=== PATIENT | male | born 1945 | race Caucasian/White ===

== ENCOUNTER 2020-09-13 12:52 | Outpatient (REF) | payer MEDICARE, SELFPAY ==
--- NOTE | 2020-09-13 | PFT_ITS ---
Forced vital capacity, FEV1, [id number], and MVV are all normal. Post bronchodilator therapy, no bronchodilator challenge was done. Total lung capacity and residual volume normal. Diffusion capacity is slightly decreased. CONCLUSION: Normal spirometry, thus no evidence of any obstructive airway disorder. Normal lung volumes. Diffusion capacity is at the lower limit of normal. Bronchodilator challenge not performed. Clinical correlation recommended. MD MYLES Rogers/STAN / [id number]
== END 2020-09-13 12:53 | disposition home or self-care (01) ==
LOC: HO.RESP 12:52
PROVIDERS: PCP Internal Medicine; Visit Provider Hospitalist
DX: R06.00 Dyspnea, unspecified (principal)
CPT/HCPCS: 94060; 94727; 94729

== ENCOUNTER → 2020-10-04 09:19 | Outpatient (BNVA) | payer MEDICARE, SELFPAY | PROVIDERS: PCP Internal Medicine; Referring Provider Internal Medicine; Visit Provider Hospitalist | DX: R91.8 Other nonspecific abnormal finding of lung field (principal); R05 Cough; R06.00 Dyspnea, unspecified; J44.9 Chronic obstructive pulmonary disease, unspecified; Z79.899 Other long term (current) drug therapy | CPT/HCPCS: 99212 ==

== ENCOUNTER → 2021-03-28 09:00 | Outpatient (BNVA) | payer MEDICARE, SELFPAY | PROVIDERS: PCP Internal Medicine; Visit Provider Hospitalist | DX: J44.9 Chronic obstructive pulmonary disease, unspecified (principal); R91.8 Other nonspecific abnormal finding of lung field; R05 Cough | CPT/HCPCS: 99212 ==

== ENCOUNTER → 2022-03-22 08:50 | Outpatient (BNVA) | payer MEDICARE, SELFPAY | PROVIDERS: PCP Internal Medicine; Visit Provider Hospitalist | DX: R91.8 Other nonspecific abnormal finding of lung field (principal); J44.9 Chronic obstructive pulmonary disease, unspecified; R05.9 Cough, unspecified | CPT/HCPCS: 99212 ==

== ENCOUNTER 2023-04-04 09:12 | Outpatient (REF) | payer MEDICARE, SELFPAY ==
--- NOTE | 2023-04-04 09:00 | PFT_ITS ---
FLOWS: 1. FEV1 90% of predicted at 2.82 L. 2. FVC 87% of predicted at 3.79 L. 3. FEV1 to FVC ratio of 0.74. 4. No bronchodilator response. LUNG VOLUMES: 1. Total lung capacity 100% of predicted at 7.27 L. 2. Residual volume 127% of predicted at 3.36 L. 3. Slow vital capacity 84% of predicted at 3.91 L. 4. Expiratory reserve volume 29% of predicted at 0.37 L. DIFFUSION CAPACITY: Mildly decreased. Diffusion capacity corrects to normal after adjustment for alveolar ventilation. IMPRESSION: No obstructive or restrictive ventilatory defect. No bronchodilator response. Increased residual volume suggests air trapping. George Alvares MD AP/MODL / [id number]
== END 2023-04-04 09:13 | disposition home or self-care (01) ==
LOC: HO.RESP 09:12
PROVIDERS: Visit Provider Hospitalist
DX: R06.00 Dyspnea, unspecified (principal)
CPT/HCPCS: 94010; 94727; 94729

== ENCOUNTER → 2023-05-02 10:27 | Outpatient (BNVA) | payer MEDICARE, SELFPAY | PROVIDERS: PCP Internal Medicine; Visit Provider Hospitalist | DX: J44.9 Chronic obstructive pulmonary disease, unspecified (principal); R91.8 Other nonspecific abnormal finding of lung field; R05.9 Cough, unspecified | CPT/HCPCS: 99212 ==

== ENCOUNTER 2024-05-06 09:50 | Outpatient (AMB) | payer MEDICARE, SELFPAY ==
[2024-05-06 09:54] VITALS: BP 124/60; PULSE 59; O2SAT 96; BMI 24.5
--- NOTE | 2024-05-06 09:54 | A.OFFVIS_ITS ---
Vital Signs 05/06/24 09:54 Height 5 ft 11 in Weight 176 lb BMI 24.5 BP 124/60 Blood Pressure Location Lt brachial Position Sitting Pulse 59 Pulse Source Pulse Oximeter Pulse Oximetry (%) 96 Oxygen Delivery Method Room Air Intake Visit Reasons: pulmonary nodule Cut Off Saw Tender Metal Required: No Allergies No Known Allergies Allergy (Verified 05/06/24 09:56) HPI Comments Details: The patient is a 78 year old gentleman known asthma in addition to pulmonary nodules. He was initially and Advair, but, then due to insurance reasons he was social her to Breo. The Breo has been affecting beneficial though is very expensive for him. He has not had to use his rescue inhaler. He has not had any exacerbations of the breathing. Overall he is doing well exercising regularly. He does complains of some dyspnea on exertion at times. Mild in severity. Does get better with rest. He also has had CT scans assessing his pulmonary nodules. His last CT scan was done over April 2019 at [facility] demonstrating stable pulmonary nodules when compared to 2017. Based on the stable nodules he does not require any additional serial CAT scans at this time. We can consider CT scans as needed. Otherwise the patient is without any other complaints. 10/04/2020. The patient is here for pulmonary follow-up visit. Overall he is doing well. Back in April he did have an elevated PSA and did have a diagnosis of lung cancer made by biopsy. He did undergo a prostatectomy in [place]. He did not require radiation or chemotherapy or hormonal therapy. He has been recovering well. In the meantime he has known pulmonary nodules. He did have a recent CT scan of the chest that we personally reviewed from [facility]. Demonstrated the pulmonary nodules have been about the same. Although, he does have this scar like nodular density which is irregular in nature and that is located in the right lower lobe. This is suggestive of rounded atelectasis versus and nodular density. In view of his prostate cancer these nodules have to monitor closely. Therefore will continue with the yearly CAT scans at this time. If the patient develops any worsening symptoms or any concerning symptoms then an earlier evaluation will be warranted done. He continues using his respiratory medications. He is wondering about a cough that he is developing. It is usually productive in usually in the mornings worse. Moderate severity. He has been responding well to the Symbicort. We did talk about considering a long-acting muscarinic antagonist. The patient is reluctant to use it at this time. Will go ahead and treated for an upper airway cough syndrome. 03/22/2022 the patient is here for a pulmonary follow-up visit. Overall he is feeling well. He continues uses Symbicort 2 puffs twice a day. He does still get some shortness of breath. He does need a rescue inhaler specially well playing softball or any other activities where he could pretreated prior to the exercise. The patient does complain about the cause of the Symbicort. I will see the complain a more reasonable inhaler for him to use for maintenance therapy. The patient also had a recent CT scan of the chest that was personally by me and also his CT scan prior to that. He appears to have stable pulmonary nodules although he appears to have multiple nodules largest 1 in the left lower lobe which appears to be unchanged from previous and also has other micro nodules bilaterally. The micro nodules were not documented in his previous CT scan. Therefore, will go ahead and repeat his CT scan in a year's time. 05/02/2023 the patient is here for a pulmonary follow-up visit. Overall the patient has been doing well. Continues to exercise regularly. Continues uses respiratory therapy with good effect. I did review his CT scan of chest and does not appear to have any changes in the pulmonary nodules. There appeared to be stable and do not need serial CT scans. His pulmonary function studies are reassuring still with asthma. No evidence of any fixed obstruction. The only issue that he has been having is the cause of the inhalers. We switched him over to Advair HFA is still very expensive. Therefore I did provide him with good Rx card and a prescription for AirDuo which she can use and hopefully this way he can get it for cheaper rahman and not affect his donut hole. I am hopeful that this works for him. He also has a rescue inhaler that he has not required. Otherwise patient follow-up in a year if he has any issues he is to call the office for an earlier appointment. 05/06/2024 the patient is here for a pulmonary follow-up visit. Overall he is doing okay. Does complaint of increasing dyspnea on exertion. Feels like he gets more winded with typical activities he did in the past. He has been on Symbicort. Although has been very expensive. Prior to that he had been on Advair. Will go ahead and switch him to AirDuo with a GoodRx card. I did give him a card and he will take it to the [facility] pharmacy in order to get a reasonable rahman. Hopefully the AirDuo if he takes it twice a day will be more effective for it. During the visit we did go for brief walking oximetry the stairs the patient maintain a pulse ox of 96%. Heart rate did increase to about 105. He was winded about dyspnea score 5/10. It did improve after few minutes. He already had a cardiac evaluation and stress test per the patient and was okay per the patient. Therefore at this point I believe he is doing okay. His last CT scan was last year demonstrating stable pulmonary nodules for more than 2 years. He also had PFTs back about a year ago and does also reasonable without any evidence of any definitive obstructive nor restrictive ventilatory defects. He is going to start the AirDuo and continue to exercise. He is going to be watching closely for poor air quality. If his symptoms worsen then he can al ways call and we can repeat an x-ray and PFTs to assess any further progression of his airway disease. [facility] Medical History (Updated 05/06/24 @ 09:55 by Brenton Barrios MD) Asthma-COPD overlap syndrome Pulmonary nodules Cough Dyspnea Social History (Updated 03/22/22 @ 09:02 by SAGAR Valverde) Patient Tobacco Use Status: Never used Tobacco Review of Systems Const Denies night sweats ENT Denies change in voice, Denies lip swelling, Denies mouth pain, Reports nasal congestion, Reports nasal discharge and Denies tongue swelling Card Denies chest pain and Reports dyspnea on exertion Resp Reports cough and Reports dyspnea on exertion GI Denies abdominal pain Musc Denies no additional complaints Neuro Denies Neuro-related abnormal movements Psych Denies no additional complaints Porfirio/Lymph Denies easy bleeding and Denies lymphadenopathy Aller/Immun Denies lip swelling and Denies tongue swelling Physical Exam Vital Signs: Last Vital Signs Pulse 59 05/06/24 09:54 BP 124/60 05/06/24 09:54 Pulse Ox 96 05/06/24 09:54 Oxygen Delivery Method Room Air 05/06/24 09:54 BMI result Body Mass Index 24.5 Const General: alert Neck Neck: Yes normal visual inspection, Yes full ROM and Yes no lymphadenopathy Chest Chest palpation & inspection: normal inspection of the chest Resp Auscultation: diminished lung sounds Cardio Rate: regular rate Rhythm: regular rhythm Heart sounds: S1 normal heart sound present and S2 normal heart sound present GI Palpation (GI): Soft to palpation and nontender Auscultation: normal bowel sounds Skin General skin exam: rashes and/or lesions noted Assessment & Plan Assessment & Plan (1) Asthma-COPD overlap syndrome: Code(s): J44.9 - Chronic obstructive pulmonary disease, unspecified Category: Medical (2) Pulmonary nodules: Code(s): R91.8 - Other nonspecific abnormal finding of lung field Category: Medical (3) Cough: Code(s): R05 - Cough Category: Medical Qualifiers: Cough type: chronic Qualified Code(s): R05.3 - Chronic cough Plan stop Advair Start Airduo Continue allergy therapy Singulair and as needed Zyrtec Continue fluticasone nasal spray Based on his last CT scan no additional serial CTs needed consider PFTs and CXR if continues to be symptomatic Follow-up in 6 months Medications: New fluticasone propion-salmeterol 113-14 mcg/actuation (AirDuo RespiClick) 1 inh inhalation Q12H 1 ea 11RF 30 days Coding Level of Care Code Est Pt Level 4 (43221) Diagnoses Asthma-COPD overlap syndrome J44.9 Pulmonary nodules R91.8 Chronic cough R05.3 Cough type: chronic Time Spent (min) 17
== END 2024-05-06 10:19 | disposition home or self-care (01) ==
PROVIDERS: PCP Internal Medicine; Visit Provider Hospitalist
DX: J44.9 Chronic obstructive pulmonary disease, unspecified (principal); R91.8 Other nonspecific abnormal finding of lung field; R05.3 Chronic cough
CPT/HCPCS: 99214

== ENCOUNTER → 2024-05-06 09:50 | Outpatient (BNVA) | payer MEDICARE, SELFPAY | PROVIDERS: PCP Internal Medicine; Visit Provider Hospitalist | DX: J44.9 Chronic obstructive pulmonary disease, unspecified (principal); R91.8 Other nonspecific abnormal finding of lung field; R05.3 Chronic cough | CPT/HCPCS: 99212 ==

== ENCOUNTER 2024-12-02 08:54 | Outpatient (AMB) | payer MEDICARE, SELFPAY ==
[2024-12-02 08:58] VITALS: BP 134/66; PULSE 63; O2SAT 96; BMI 26.9
--- NOTE | 2024-12-02 08:58 | A.OFFVIS_ITS ---
Vital Signs 12/02/24 08:58 Height 5 ft 11 in Weight 192 lb 14.472 oz BMI 26.9 BP 134/66 Blood Pressure Location Rt brachial Position Sitting Pulse 63 Pulse Source Pulse Oximeter Pulse Oximetry (%) 96 Oxygen Delivery Method Room Air Intake Visit Reasons: Pulmonary Nodule Allergies No Known Allergies Allergy (Verified 12/02/24 09:01) HPI Comments Details: The patient is a 79 year old gentleman known asthma in addition to pulmonary nodules. He was initially and Advair, but, then due to insurance reasons he was social her to Breo. The Breo has been affecting beneficial though is very expensive for him. He has not had to use his rescue inhaler. He has not had any exacerbations of the breathing. Overall he is doing well exercising regularly. He does complains of some dyspnea on exertion at times. Mild in severity. Does get better with rest. He also has had CT scans assessing his pulmonary nodules. His last CT scan was done over April 2019 at [facility] demonstrating stable pulmonary nodules when compared to 2017. Based on the stable nodules he does not require any additional serial CAT scans at this time. We can consider CT scans as needed. Otherwise the patient is without any other complaints. 10/04/2020. The patient is here for pulmonary follow-up visit. Overall he is doing well. Back in April he did have an elevated PSA and did have a diagnosis of lung cancer made by biopsy. He did undergo a prostatectomy in [place]. He did not require radiation or chemotherapy or hormonal therapy. He has been recovering well. In the meantime he has known pulmonary nodules. He did have a recent CT scan of the chest that we personally reviewed from [facility]. Demonstrated the pulmonary nodules have been about the same. Although, he does have this scar like nodular density which is irregular in nature and that is located in the right lower lobe. This is suggestive of rounded atele ctasis versus and nodular density. In view of his prostate cancer these nodules have to monitor closely. Therefore will continue with the yearly CAT scans at this time. If the patient develops any worsening symptoms or any concerning symptoms then an earlier evaluation will be warranted done. He continues using his respiratory medications. He is wondering about a cough that he is developing. It is usually productive in usually in the mornings worse. Moderate severity. He has been responding well to the Symbicort. We did talk about considering a long-acting muscarinic antagonist. The patient is reluctant to use it at this time. Will go ahead and treated for an upper airway cough syndrome. 03/22/2022 the patient is here for a pulmonary follow-up visit. Overall he is feeling well. He continues uses Symbicort 2 puffs twice a day. He does still get some shortness of breath. He does need a rescue inhaler specially well playing softball or any other activities where he could pretreated prior to the exercise. The patient does complain about the cause of the Symbicort. I will see the complain a more reasonable inhaler for him to use for maintenance therapy. The patient also had a recent CT scan of the chest that was personally by me and also his CT scan prior to that. He appears to have stable pulmonary nodules although he appears to have multiple nodules largest 1 in the left lower lobe which appears to be unchanged from previous and also has other micro nodules bilaterally. The micro nodules were not documented in his previous CT scan. Therefore, will go ahead and repeat his CT scan in a year's time. 05/02/2023 the patient is here for a pulmonary follow-up visit. Overall the patient has been doing well. Continues to exercise regularly. Continues uses respiratory therapy with good effect. I did review his CT scan of chest and does not appear to have any changes in the pulmonary nodules. There appeared to be stable and do not need serial CT scans. His pulmonary function studies are reassuring still with asthma. No evidence of any fixed obstruction. The only issue that he has been having is the cause of the inhalers. We switched him over to Advair HFA is still very expensive. Therefore I did provide him with good Rx card and a prescription for AirDuo which she can use and hopefully this way he can get it for cheaper rahman and not affect his donut hole. I am hopeful that this works for him. He also has a rescue inhaler that he has not required. Otherwise patient follow-up in a year if he has any issues he is to call the office for an earlier appointment. 05/06/2024 the patient is here for a pulmonary follow-up visit. Overall he is doing okay. Does complaint of increasing dyspnea on exertion. Feels like he gets more winded with typical activities he did in the past. He has been on Symbicort. Although has been very expensive. Prior to that he had been on Advair. Will go ahead and switch him to AirDuo with a GoodRx card. I did give him a card and he will take it to the [facility] pharmacy in order to get a reasonable rahman. Hopefully the AirDuo if he takes it twice a day will be more effective for it. During the visit we did go for brief walking oximetry the stairs the patient maintain a pulse ox of 96%. Heart rate did increase to about 105. He was winded about dyspnea score 5/10. It did improve after few minutes. He already had a cardiac evaluation and stress test per the patient and was okay per the patient. Therefore at this point I believe he is doing okay. His last CT scan was last year demonstrating stable pulmonary nodules for more than 2 years. He also had PFTs back about a year ago and does also reasonable without any evidence of any definitive obstructive nor restrictive ventilatory defects. He is going to start the AirDuo and continue to exercise. He is going to be watching closely for poor air quality. If his symptoms worsen then he can always call and we can repeat an x-ray and PFTs to assess any further progression of his airway disease. 12/02/2024 the patient is here for pulmonary follow-up visit. He has been sick now for couple weeks. Congestion cough and chest tightness. Was evaluated doxycycline and also prednisone started on 60 mg she has been using his rescue inhaler regularly in addition to maintenance inhaler. After completing the oxygen the prednisone has not seen any significant improvement. On exam he does not have any significant wheezing but he still has productive cough congested. Will go ahead and start him on Augmentin. We can also consider levofloxacin. The patient if no better after starting the Augmentin for chest x-ray. He will continue with his current respiratory therapy at this time. He has been taking Delsym. Will switch that over to Mucinex DM or the generic. Patient will return the springtime, but he can always push the appointment to the fall if he is doing okay. [facility] Medical History (Updated 12/02/24 @ 21:20 by Brenton Barrios MD) Asthma-COPD overlap syndrome Pulmonary nodules Cough Dyspnea Social History Patient Tobacco Use Status: Never used Tobacco Review of Systems Const Denies night sweats ENT Denies change in voice, Denies lip swelling, Denies mouth pain, Reports nasal congestion, Reports nasal discharge and Denies tongue swelling Card Denies chest pain and Reports dyspnea on exertion Resp Reports cough and Reports dyspnea on exertion GI Denies abdominal pain Musc Denies no additional complaints Neuro Denies Neuro-related abnormal movements Psych Denies no additional complaints Porfirio/Lymph Denies easy bleeding and Denies lymphadenopathy Aller/Immun Denies lip swelling and Denies tongue swelling Physical Exam Vital Signs: Last Vital Signs Pulse 63 12/02/24 08:58 BP 134/66 12/02/24 08:58 Pulse Ox 96 12/02/24 08:58 Oxygen Delivery Method Room Air 12/02/24 08:58 BMI result Body Mass Index 26.9 Const General: alert Neck Neck: Yes normal visual inspection, Yes full ROM and Yes no lymphadenopathy Chest Chest palpation & inspection: normal inspection of the chest Resp Auscultation: diminished lung sounds Cardio Rate: regular rate Rhythm: regular rhythm Heart sounds: S1 normal heart sound present and S2 normal heart sound present GI Palpation (GI): Soft to palpation and nontender Auscultation: normal bowel sounds Skin General skin exam: rashes and/or lesions noted Assessment & Plan Assessment & Plan (1) Asthma-COPD overlap syndrome: Code(s): J44.9 - Chronic obstructive pulmonary disease, unspecified Category: Medical (2) Pulmonary nodules: Code(s): R91.8 - Other nonspecific abnormal finding of lung field Category: Medical (3) Cough: Code(s): R05 - Cough Category: Medical Qualifiers: Cough type: chronic Qualified Code(s): R05.3 - Chronic cough (4) Bronchitis: Code(s): J40 - Bronchitis, not specified as acute or chronic Category: Medical Plan start Augmentin CXR continue Airduo Continue allergy therapy Singulair and as needed Zyrtec Continue fluticasone nasal spray Based on his last CT scan no additional serial CTs needed consider PFTs if continues to be symptomatic Follow-up in 4-6 months Orders: Orders XR chest 2V Today J44.9 - Chronic obstructive pulmonary disease, unspecified Medications: New amoxicillin-pot clavulanate 875-125 mg 1 tab PO BID 20 tabs 0RF 10 days Coding Level of Care Code Est Pt Level 4 (27557) Diagnoses Asthma-COPD overlap syndrome J44.9 Pulmonary nodules R91.8 Chronic cough R05.3 Cough type: chronic Bronchitis J40 Time Spent (min) 16
--- OUTSIDE RECORDS SUMMARY | 2024-12-02 09:22 | XMS_ITS | Continuity of Care Document ---
Author Organization [facility] [address] [place] [address] Care Team Providers Care Heel Layer Name Role Phone RENAN FLOREZ Referring Provider [phone] RENAN FLOREZ Primary Care Provider Assessment Encounter Date Assessment Date Assessment LastModified by Organization Details LastModified Time 09/09/2024 09/09/2024 A: Pt denied pain with therex performed. Pt has no hip or knee pain coming in today and will try golfing. P: Continue per plan of care. Progress strengthening as appropriate. [email or web address] Not available 09/09/2024 12:40:48 Plan of Treatment Reminders Order Date Submit Date Provider Last Modified By Organization Details Last Modified Time Details Appointments None record ed. Lab None record ed. Referral None record ed. Procedures None record ed. Surgeries None record ed. Imaging None record ed. Medication Orders None record ed. Patient TargetsNo targets recorded. Patient InstructionsNo instructions recorded. Reason for Referral None Reported. Results Created Date Observation Date Name Description Value Unit Range Abnormal Flag Note LastModifiedBy Organization Detail LastModifiedTime 08/20/2008/20/2024 XR, knee, 4 or more view http:/ [email or web address] ?Encry pted=s hAaTro YD8dLq bEUv6g %2BXZw aYqtaq 0bqfl% 2Fg9IQ a4ajBk vP9nXo QUaueC m3YtLR FvZlgJ JJ8mAn HZtai3 9r9975 AC0Kqa 3yDVaq vKiQtr MwF INTERFACE [facility] [address], [place], [address], 08/20/2024 13:55:42 08/20/20 24 08/20/2024 XR, knee, 4 or more view http:/ [email or web address] ?Encry pted=s hAaTro YD8dLq bEUv6g %2BXZw aYqtaq 0bqfl% 2Fg9IQ a4ajBk vP9nXo QUaueC m3YtLR FvZlgJ JJ8mAn HZtai3 0g0819 AC0Kqa 3yDVaq vKiQtr MwF INTERFACE [facility] [address], [place], [address], 08/20/2024 13:55:44 Result Notes None recorded. Problems Name Problem SNOMED Code Status Onset Date Resolution Date Notes Provider Name and Address Organization Details Recorded Time No complaints [id number] Active Status : 'I'; Not Available [facility] 4 09:25:30 Trigger finger of left hand [id number] 9107 Active 2023 Rosendo Augustin PA-C [address], [place], [address] , [facility] 4 08:25:40 Problem Notes None recorded. Procedures Surgical History Date Name Laterality Status Provider Name and Address Organization Details Recorded Time 4 78764 Therapeutic Exercise (1:1) completed Tiffanie Hernandez DPT [address] [facility], [place], [address], [facility] 09/12/2024 14:02:35 4 94607 Therapeutic Exercise (1:1) completed Nilda Story PTA [address], [place], [address], [facility] 09/08/2024 18:51:43 4 92950 Therapeutic Exercise (1:1) completed Tiffanie Hernandez DPT [address] [facility], [place], [address], [facility] 09/05/2024 15:59:02 4 71912 Therapeutic Exercise (1:1) completed Nilda Story, CERTIFIED NURSING ASSISTANT INSTRUCTOR [address] [facility], [place], [address], [facility] 09/03/2024 15:33:11 4 25607: Manual therapy completed Nilda Story CERTIFIED NURSING ASSISTANT INSTRUCTOR [address], [place], [address], [facility] 09/03/2024 15:25:26 4 92475 Therapeutic Exercise (1:1) completed Nilda Story, CERTIFIED NURSING ASSISTANT INSTRUCTOR [address], [place], [address], [facility] 08/27/2024 14:45:20 53668: Manual therapy completed Nilda Story CERTIFIED NURSING ASSISTANT INSTRUCTOR [address], [place], [address], [facility] 08/27/2024 14:45:20 4 01646 Therapeutic Exercise (1:1) completed Nilda Story, CERTIFIED NURSING ASSISTANT INSTRUCTOR [address], [place], [address], [facility] 08/21/2024 15:56:42 4 26489: Manual therapy completed Nilda Story CERTIFIED NURSING ASSISTANT INSTRUCTOR [address], [place], [address], [facility] 08/21/2024 15:56:42 Hip Kenalog 1cc Injection, L/R completed Akil Dunham PA-C [address] [facility], [place], [address], [facility] 08/20/2024 15:37:03 4 74143 Therapeutic Exercise (1:1) completed Nilda Story CERTIFIED NURSING ASSISTANT INSTRUCTOR [address], [place], [address], [facility] 08/18/2024 16:47:57 4 35520: Manual therapy completed Nilda Story, CERTIFIED NURSING ASSISTANT INSTRUCTOR [address], [place], [address], [facility] 08/18/2024 16:47:57 4 61502 Therapeutic Exercise (1:1) completed Nilda Story, CERTIFIED NURSING ASSISTANT INSTRUCTOR [address], [place], [address], [facility] 08/15/2024 15:59:22 4 44568: Manual therapy completed Nilda Story, CERTIFIED NURSING ASSISTANT INSTRUCTOR [address], [place], [address], [facility] 08/15/2024 15:59:27 4 73365 Therapeutic Exercise (1:1) completed Nilda Story, CERTIFIED NURSING ASSISTANT INSTRUCTOR [address], [place], [address], [facility] 08/12/2024 16:04:30 4 34872: Manual therapy completed Nilda Story, CERTIFIED NURSING ASSISTANT INSTRUCTOR [address], [place], [address], [facility] 08/12/2024 16:04:35 4 45053 Therapeutic Exercise (1:1) completed Nilda Story, CERTIFIED NURSING ASSISTANT INSTRUCTOR [address], [place], [address], [facility] 08/07/2024 12:22:14 4 93235: Manual therapy completed Nilda Story, CERTIFIED NURSING ASSISTANT INSTRUCTOR [address], [place], [address], [facility] 08/07/2024 12:22:14 4 11585 Therapeutic Exercise (1:1) completed Nilda Story, CERTIFIED NURSING ASSISTANT INSTRUCTOR [address], [place], [address], [facility] 08/05/2024 16:43:31 4 12601: Manual therapy completed Nilda Story CERTIFIED NURSING ASSISTANT INSTRUCTOR [address] [facility], [place], [address], [facility] 08/05/2024 16:43:21 4 69383 Therapeutic Exercise (1:1) completed Tiffanie Hernandez DPT [address] [facility], [place], [address], [facility] 07/31/2024 16:54:17 4 34156: Low complexity PT Eval completed Tiffanie Hernandez DPT [address] [facility], [place], [address], [facility] 07/31/2024 16:56:02 4 G8419 BMI Outside Normal Parameters, F/U not Documented completed Tiffanie Hernandez DPT [address] [facility], [place], [address], [facility] 07/31/2024 16:22:55 4 G8427 Current Medication Documented completed Tiffanie Hernandez DPT [address] [facility], [place], [address], [facility] 07/31/2024 16:22:59 4 Trigger Finger Kenalog Injection completed Maxim Michael PA-C [address] [facility], [place], [address], [facility] 06/24/2024 13:40:50 4 JZTrigger Finger Injection completed Rosendo Augustin PA-C [address], [place], [address], [facility] 02/15/2024 08:26:00 Imaging Results None recorded. Procedure Notes None recorded. Medical Equipment None Reported. Allergies Allergen ID Allergen Name Allergen Category Reaction Reaction Severity Criticality Documentation Date Start Date Code Code System Note Provider Name and Address Organization Details Recorded Time 06471 mold extract environme nt Not available Not available Not available 01/21/20242015 02196 8 RxNorm Not Available [facility] 12:32:15 Medications Name Sig Start Date Stop Date Status Note LastModified by Organization Details LastModified Time amoxicillin 500 mg capsule TAKE 4 CAPSULES AN HOUR PRIOR TO DENTAL APPOINTME NT AND THEN 1 CAPSULE 3 TIMES A DAY FOR 1 WEEK. 08/20 completed Not Available Not Available Not Available nystatin 100,000 unit/mL oral suspension SWISH AND SWALLOW 5ML BY MOUTH FOR 1 MINUTES FOUR TIMES DAILY FOR AT LEAST 48 HOURS AFTER PERIORAL SYMPTOMS RESOLVE 08/20 completed Not Available Not Available Not Available prednisone 10 mg tablet TAKE 2 TABLETS BY MOUTH DAILY FOR 5 DAYS active Not Available Not Available No t Available doxycycline hyclate 100 mg capsule TAKE 1 CAPSULE BY MOUTH TWICE A DAY FOR 7 DAYS 08/20 completed Not Available Not Available Not Available atorvastati n 20 mg tablet TAKE 1 TABLET BY MOUTH EVERY DAY active Not Available Not Available No t Available amlodipine 2.5 mg tablet TAKE 1 TABLET BY MOUTH EVERY DAY active Not Available Not Available No t Available prednisone 10 mg tablets in a dose pack as directed 6 FMf0guun, 5 IEf8tuzr, 4 PO x2days, 3 AXx3teks, 2 KDd7btbv, 1 AHw8lstt 2024 active Not Available Not Available Not Avai lable prednisolon e acetate 1 % eye drops,suspe nsion INSTILL 1 DROP INTO LEFT EYE 4 TIMES A DAY FOR 1 WEEK 08/20 completed Not Available Not Available Not Available tamsulosin 0.4 mg capsule TAKE 1 CAPSULE BY MOUTH EVERY 12 HOURS active Not Available Not Available No t Available doxycycline monohydrate 100 mg capsule active Not Available Not Available Not Available polymyxin B sulfate 10,000 unit-trimet hoprim 1 mg/mL eye drops INSTILL 1 DROP INTO RIGHT EYE EVERY 3 HOURS FOR 7 DAYS WHILE AWAKE DO NOT EXCEED 6 DOSES IN 24 HOURS 08/20 completed Not Available Not Available Not Available montelukast 10 mg tablet TAKE 1 TABLET BY MOUTH EVERY DAY active Not Available Not Available No t Available ibuprofen 600 mg tablet TAKE 1 TABLET ONE HOUR PRIOR TO DENTAL APPOINTME NT AND ONE TABLET EVERY 6 HOURS FOR PAIN. active Not Available Not Available No t Available methylpredn isolone 4 mg tablets in a dose pack TAKE 6 TABLETS ON DAY 1 DIRECTED ON PACKAGE AND DECREASE BY 1 TAB EACH DAY FOR A TOTAL OF 6 DAYS active Not Available Not Available No t Available albuterol sulfate HFA 90 mcg/actuati on aerosol inhaler TAKE 2 PUFFS INHALATIO N EVERY 4-6 HOURS NEEDED 08/20 completed Not Available Not Available Not Available doxycycline hyclate 100 mg tablet TAKE 1 TABLET BY MOUTH TWICE A DAY FOR 10 DAYS 08/20 completed Not Available Not Available Not Available finasteride 5 mg tablet TAKE 1 TABLET BY MOUTH EVERY DAY active Not Available Not Available No t Available amoxicillin 875 mg-potassiu m clavulanate 125 mg tablet TAKE 1 TABLET BY MOUTH TWICE A DAY FOR 7 DAYS 08/20 completed Not Available Not Available Not Available Laxative (bisacodyl) 5 mg tablet,sana yed release 4 TABLETS ORALLY DIRECTED X1 DAY 08/20 completed Not Available Not Available Not Available Gas Relief Extra Strength 125 mg chewable tablet 3 CHEWABLE TABLETS ORALLY DIRECTED 1 DAY 08/20 completed Not Available Not Available Not Available chlorhexidi ne gluconate 0.12 % mouthwash RINSE MOUTH WITH 15ML (1 CAPFUL) FOR 30 SECONDS IN MORNING AND EVENING AFTER BRUSHING, THEN SPIT 08/20 completed Not Available Not Available Not Available Advair HFA 230 mcg-21 mcg/actuati on aerosol inhaler INHALE 2 PUFFS EVERY 12 HOURS 08/20 completed Not Available Not Available Not Available budesonide- formoterol HFA 160 mcg-4.5 mcg/actuati on aerosol inhaler INHALE 2 PUFFS BY MOUTH TWICE A DAY FOR 30 DAYS 08/20 completed Not Available Not Available Not Available GaviLyte-G 236 gram-22.74 gram-6.74 gram-5.86 gram oral solution TAKE DIRECTED 08/20 completed Not Available Not Available Not Available fluticasone 113 mcg-salmete rol 14 mcg/actuati on breath activated powdr INHALE 1 PUFF BY MOUTH EVERY 12 HOURS active Not Available Not Available No t Available fluticasone 232 mcg-salmete rol 14 mcg/actuati on breath activated powdr INHALE 1 PUFF EVERY 12 HOURS FOR 30 DAYS 08/20 completed Not Available Not Available Not Available Vitals None Recorded Social History None recorded. Functional Status None recorded. Mental Status None recorded. Family History Nothing Reported. Medical History No medical history recorded. 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 [id number] 28379 M76.32 [id number] [facility] [address] [place] [address] 08/19/2024 13:49:54 08/19/2024 16:51:33 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 [id number] 51236 M76.32 [id number] [facility] [address] [place] [address] 08/20/2024 13:32:05 08/20/2024 15:39:14 Pain of left knee joint 8258773703 66626 M25.562 Tro[facility] bursitis of left hip 4552243897 83167 M70.62 [id number] [facility] [address] [place] [address] 08/25/2024 15:51:23 08/25/2024 18:36:45 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 9612657309 01586 M76.32 [id number] [facility] [address] [place] [address] 08/28/2024 13:54:30 08/28/2024 15:10:23 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 9282223746 09075 M76.32 [id number] [facility] [address] [place] [address] 09/03/2024 12:31:08 09/03/2024 15:34:21 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 [id number] 16295 M76.32 [id number] Tiffanie Hernandez, DPT [facility] [address] [place] [address] 09/05/2024 13:54:20 09/08/2024 08:39:58 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 5762935186 38878 M76.32 [id number] Dallin Vogt, PT [facility] [address] [place] [address] 09/09/2024 10:17:54 09/09/2024 15:22:31 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 [id number] 48484 M76.32 Health Concerns Section Related Observation LastModified by Organization Detai ls LastModified Time None Recorded Concern Status LastModified by Organization Details LastModified Time None Recorded Payers Encounter Date Sequence Insurance Name Policy Number Policy Montes Covered Member ID Montes Member ID Guarantor Name 09/09/2024 2 [place] [id number] Manuel So [id number] Manuel So 09/09/2024 1 [place] [employer] Manuel So [id number] Manuel So Notes Date Note Type Note Provider Name and Address Organization Details Recorded Time 09/09/2024 text/html Pt reports 0/10 hip pain coming in, I feel good. I'm going golfing this afternoon and we'll see how I do. Nilda Story, CERTIFIED NURSING ASSISTANT INSTRUCTOR [address], [place], [address], [facility] 09/09/2024 12:41:15
--- OUTSIDE RECORDS SUMMARY | 2024-12-02 09:22 | XMS_ITS | Continuity of Care Document ---
Author Organization [facility] Address [address] [place] [address] Care Team Providers Care Care Professionals Name Role Phone RENAN FLOREZ Referring Provider [phone] RENAN FLOREZ Primary Care Provider Assessment Encounter Date Assessment Date Assessment LastModified by Organization Details LastModified Time 09/03/2024 09/03/2024 A: Pt denied pain with therex performed. Pt presents with normal gait mechanics on level ground and on stairs without pain. Pt presents with increased flexibility in hip rotators and is able to cross his legs to put his L shoe on. P: Continue per plan of care. Progress strengthening as appropriate. [email or web address] Not available 09/03/2024 15:33:55 Plan of Treatment Reminders Order Date Submit [...] Abnormal Flag Note LastModifiedBy Organization Detail LastModifiedTime 08/20/20 24 08/20/2024 XR, knee, 4 or more view http:/ [email or web address] ?Encry pted=s hAaTro YD8dLq bEUv6g %2BXZw aYqtaq 0bqfl% 2Fg9IQ a4ajBk vP9nXo QUaueC m3YtLR FvZlgJ JJ8mAn HZtai3 0u2823 AC0Kqa 3yDVaq vKiQtr MwF INTERFACE [facility] [address], [place], [address], 08/20/2024 13:55:42 08/20/20 24 08/20/2024 XR, knee, 4 or more view http:/ [email or web address] ?Encry pted=s hAaTro YD8dLq bEUv6g %2BXZw aYqtaq 0bqfl% 2Fg9IQ a4ajBk vP9nXo QUaueC m3YtLR FvZlgJ JJ8mAn HZtai3 6v0101 AC0Kqa 3yDVaq vKiQtr MwF INTERFACE [facility] [address], [place], [address], 08/20/2024 13:55:44 Result Notes None recorded. Problems Name Problem SNOMED Code Status Onset Date Resolution Date Notes Provider Name and Address Organization Details Recorded Time No complaints 849590748 Active Status : 'I'; Not Available [facility] 09:25:30 Trigger finger of left hand [id number] 9107 Active 2023 Rosendo Augustin PA-C [address], [place], [address] , [facility] 4 08:25:40 Problem Notes None recorded. Procedures Surgical History Date Name Laterality Status Provider Name and Address Organization Details Recorded Time 4 47813 Therapeutic Exercise (1:1) completed Tiffanie Hernandez DPT [address], [place], [address], [facility] 09/12/2024 14:02:35 4 12765 Therapeutic Exercise (1:1) completed Nilda Story PTA [address], [place], [address], [facility] 09/08/2024 18:51:43 4 70736 Therapeutic Exercise (1:1) completed Tiffanie Hernandez DPT [address], [place], [address], [facility] [place] [facility] 09/05/2024 15:59:02 22174 Therapeutic Exercise (1:1) completed Nilda Story, [employer] [address], [place], [address], [facility] [place] [facility] 09/03/2024 15:33:11 4 87341: Manual therapy completed Nilda Story, [employer] [address], [place], [address], [facility] 09/03/2024 15:25:26 76403 Therapeutic Exercise (1:1) completed Nilda Story, [employer] [address], [place], [address], [facility] 08/27/2024 14:45:20 4 46065: Manual therapy completed Nilda Story, [employer] [address], [place], [address], [facility] [place] [facility] 08/27/2024 14:45:20 26995 Therapeutic Exercise (1:1) completed Nilda Story, [employer] [address], [place], [address], [facility] 08/21/2024 15:56:42 78633: Manual therapy completed Nilda Story, [employer] [address], [place], [address], [facility] 08/21/2024 15:56:42 Hip Kenalog 1cc Injection, L/R completed kAil Dunham PA-C [address], [place], [address], [facility] 08/20/2024 15:37:03 42330 Therapeutic Exercise (1:1) completed Nilda Story, [employer] [address], [place], [address], [facility] 08/18/2024 16:47:57 4 12973: Manual therapy completed Nilda Story, [employer] [address], [place], [address], [facility] 08/18/2024 16:47:57 4 51451 Therapeutic Exercise (1:1) completed Nilda Story, [employer] [address], [place], [address], [facility] 08/15/2024 15:59:22 4 39624: Manual therapy completed Nilda Story, [employer]ER [address], [place], [address], [facility] 08/15/2024 15:59:27 4 26511 Therapeutic Exercise (1:1) completed Nilda Story, [employer]ER [address], [place], [address], [facility] 08/12/2024 16:04:30 4 76979: Manual therapy completed Nilda Story, [employer]ER [address], [place], [address], [facility] 08/12/2024 16:04:35 4 32109 Therapeutic Exercise (1:1) completed Nilda Story, [employer]ER [address], [place], [address], [facility] 08/07/2024 12:22:14 4 28492: Manual therapy completed Nilda Story, [employer]ER [address], [place], [address], [facility] 08/07/2024 12:22:14 4 14791 Therapeutic Exercise (1:1) completed Nilda Story, [employer]ER [address], [place], [address], [facility] 08/05/2024 16:43:31 4 87322: Manual therapy completed Nilda Story [employer] [address] [facility], [place], [address], [facility] 08/05/2024 16:43:21 4 85942 Therapeutic Exercise (1:1) completed Tiffanie Hernandez DPT [address] [facility], [place], [address], [facility] 07/31/2024 16:54:17 4 76649: Low complexity PT Eval completed Tiffanie Hernandez DPT [address] [facility], [place], [address], [facility] 07/31/2024 16:56:02 4 G8419 BMI Outside Normal Parameters, F/U not Documented completed Tiffanie Hernandez DPT [address] [facility], [place], [address], [facility] 07/31/2024 16:22:55 4 G8427 Current Medication Documented completed Tiffanei Hernandez DPT [address] [facility], [place], [address], [facility] 07/31/2024 16:22:59 4 Trigger Finger Kenalog Injection completed Maxim Michael PA-C [address] [facility], [place], [address], [facility] 06/24/2024 13:40:50 4 JZTrigger Finger Injection completed Rosendo Augustin PA-C [address] [facility], [place], [address], [facility] 02/15/2024 08:26:00 Imaging Results None recorded. Procedure Notes None recorded. Medical Equipment None Reported. Allergies Allergen ID Allergen Name Allergen Category Reaction Reaction Severity Criticality Documentation Date Start Date Code Code System Note Provider Name and Address Organization Details Recorded Time 45845 mold extract environme nt Not available Not available Not available 01/21/20242015 33886 8 RxNorm Not Available [facility] 12:32:15 Medications Name Sig Start Date Stop [...] in a dose pack as directed 6 NUg8hpqc, 5 FGg9siof, 4 PO x2days, 3 HYo7xtbm, 2 IEh2yjbu, 1 ABo4fpgc 2024 active Not Available Not Available Not [...] SNOMED-CT Code Diagnosis ICD10 Code Diagnosis Note [id number] [facility] [address] [place] [address] 08/05/2024 15:27:14 08/05/2024 17:01:54 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 4523192375 12176 M76.32 [id number] [facility] [address] [place] [address] 08/08/2024 13:52:36 08/08/2024 15:59:21 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 1162770824 42513 M76.32 1723549 [facility] [address] [place] [address] 08/12/2024 13:56:41 2024 08:59:38 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 7471367399 90032 M76.32 [id number] [facility] [address] [place] [address] 08/15/2024 13:52:14 08/15/2024 16:01:37 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 4237387148 82495 M76.32 [id number] [facility] [address] [place] [address] 08/19/2024 13:49:54 08/19/2024 16:51:33 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 9796457476 78774 M76.32 [id number] [facility] [address] [place] [address] 08/20/2024 13:32:05 08/20/2024 15:39:14 Pain of left knee joint 9965691830 59623 M25.562 Trochanter ic bursitis of left hip 3395078784 83117 M70.62 [id number] [facility] [address] [place] [address] 08/25/2024 15:51:23 08/25/2024 18:36:45 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 5271079366 10505 M76.32 [id number] Tiffanie Hernandez DPT [facility] [address] [place] [address] 08/28/2024 13:54:30 08/28/2024 15:10:23 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 1034721317 84270 M76.32 8204401 [facility] [address] [place] [address] 09/03/2024 12:31:08 09/03/2024 15:34:21 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 5914184847 68841 M76.32 Health Concerns Section Related Observation LastModified by Organization Detai ls LastModified Time None Recorded Concern Status LastModified by Organization Details LastModified Time None Recorded Payers Encounter Date Sequence Insurance Name Policy Number Policy Montes Covered Member ID Montes Member ID Guarantor Name 09/03/2024 2 [place] [id number] Manuel So [id number] Manuel So 09/03/2024 1 [place] [employer] Manuel So [id number] Manuel So Notes Date Note Type Note Provider Name and Address Organization Details Recorded Time 09/03/2024 text/html Pt reports 0/10 hip pain coming in. When I do my exercises at home I get some soreness in the side of my hip. Maybe I'm doing something wrong? Pt bought a stretch out strap for home. Nilda Story, [employer] OFF[employer]ER [address], [place], [address], [facility] [place] [facility] 09/03/2024 15:34:14
--- OUTSIDE RECORDS SUMMARY | 2024-12-02 09:22 | XMS_ITS | Continuity of Care Document ---
Author Organization [place] - [facility], [facility] [place] Address [address] [place] [address] Care Team Providers Care Prop Making Supervisor Name Role Phone RENAN FLOREZ Referring Provider [phone] RENAN FLOREZ Primary Care Provider Assessment Encounter Date Assessment Date Assessment LastModified by Organization Details LastModified Time 11/20/2024 11/20/2024 Patient seen under general supervision of Dr. Hernandez who was available but who did not see the patient. HPI: 79-year-old male seen today regarding right hand numbness. Patient reports pain especially difficulty more than a month ago. States he had fallen when getting out of a van and landed on his right upper extremity. Patient denies any significant pain at that time. In the day or 2 thereafter began to notice a numbness about the hand which occurs especially at night. Patient states that this involves the entire hand and oftentimes can begin to a sent to the wrist and midforearm. Patient denies history of difficulty with right upper extremity prior to this incident. Denies any pain about the neck. Denies any difficulty with the left upper extremity. Patient has been seen by his PCP and has an EMG scheduled in December. Past family, medical, social history and review of systems has been reviewed, updated and is located in the patient? s chart. Examination: 79-year-old male distress alert and oriented. Examination right hand no ecchymosis or erythema or warmth noted. Patient's full range of motion of the wrist and digits. No thenar atrophy is appreciated. Negative Phalen's maneuver, negative median nerve compression test. Negative Tinel's at the wrist and elbow. On examination the hand patient is currently sensitive to light touch in radial median and ulnar nerve distribution good capillary refill and 2+ radial pulses noted. On examination of the cervical spine no ecchymosis or erythema or warmth noted, good range of motion. Negative Spurling maneuver. X-rays ordered, obtained and reviewed at [facility] 3 views of the right wrist reveal no evidence of acute fracture or dislocation, mild 3-gauge of both the STT joint noted. 2 views of the cervical spine reveal significant arthritic change with bridging osteophytes noted. No acute fractures appreciated. Impression: Right hand numbness with unclear etiology. Given the radiographic appearance of cervical spine would be inclined to think that it may emanate from his neck. Plan: Treatment options are reviewed. Patient is scheduled for his EMG. At this time patient was started on a prednisone taper. I discussed potential role of physical therapy. Patient will follow up with our spine service after EMG is obtained. Sooner should his condition worsen. Should EMG show evidence of more distal compression about the wrist will follow up with one of our hand surgeons. [employer] speech recognition glost kiln placer software was used to create portions of this document. An attempt at proofreading has been made to minimize errors. Please call for corrections. [email or web address] Not available 11/20/2024 13:57:39 Plan of Treatment Reminders Order Date Submit Date Provider Last Modified By Organization Details Last Modified Time Details Appointments None recorded. Lab None recorded. Referral None recorded. Procedures None recorded. Surgeries None recorded. Imaging XR, cervical spine, 2 or 3 view - 1- 2V c-spine 2024 025 [email or web address] [facility], [address] [facility] [address], [facility] [address], [address], 5 14:17:07 Medication Orders prednisone 10 mg tablets in a dose pack 2024 [email or web address] [id number], [address] [facility] [place] [place], [place], [address], 5 14:17:07 Patient TargetsNo targets recorded. Patient InstructionsNo instructions recorded. Reason for Referral None Reported. Problems Name Problem SNOMED Code Status Onset Date Resolution Date Notes Provider Name and Address Organization Details Recorded Time No complaints 695672036 Active Status : 'I'; Not Available [facility] 09:25:30 Trigger finger of left hand 9030696627706 9107 Active 2023 Rosendo Augustin PA-C [address], [place], [address] , [facility] 08:25:40 Problem Notes None recorded. Procedures Surgical History Date Name Laterality Status Provider Name and Address Organization Details Recorded Time 05351 Therapeutic Exercise (1:1) completed Tiffanie Hernandez DPT [address], [place], [address], [facility] 09/12/2024 14:02:35 64110 Therapeutic Exercise (1:1) completed Nilda Story PTA [address], [place], [address], [facility] 09/08/2024 18:51:43 46474 Therapeutic Exercise (1:1) completed Tiffanie Hernandez DPT [address], [place], [address], [facility] 09/05/2024 15:59:02 4 20966 Therapeutic Exercise (1:1) completed Nilda Story PTA [address], [place], [address], [facility] 09/03/2024 15:33:11 4 70113: Manual therapy completed Nilda Story PTA [address], [place], [address], [facility] 09/03/2024 15:25:26 60478 Therapeutic Exercise (1:1) completed Nilda Story PTA [address], [place], [address], [facility] 08/27/2024 14:45:20 61028: Manual therapy completed Nilda Story PTA [address], [place], [address], [facility] 08/27/2024 14:45:20 4 85644 Therapeutic Exercise (1:1) completed Nilda Story, [employer] [address], [place], [address], [facility] 08/21/2024 15:56:42 4 20408: Manual therapy completed Nilda Story, [employer] [address], [place], [address], [facility] 08/21/2024 15:56:42 4 Hip Kenalog 1cc Injection, L/R completed Akil Dunham PA-C [address] [facility], [place], [address], [facility] 08/20/2024 15:37:03 4 70908 Therapeutic Exercise (1:1) completed Nilda Story, [employer] [address], [place], [address], [facility] 08/18/2024 16:47:57 4 71831: Manual therapy completed Nilda Story, [employer] [address], [place], [address], [facility] 08/18/2024 16:47:57 4 91377 Therapeutic Exercise (1:1) completed Nilda Story, [employer] [address], [place], [address], [facility] 08/15/2024 15:59:22 4 90365: Manual therapy completed Nilda Story, [employer] [address], [place], [address], [facility] 08/15/2024 15:59:27 4 92749 Therapeutic Exercise (1:1) completed Nilda Story, [employer] [address], [place], [address], [facility] 08/12/2024 16:04:30 4 76177: Manual therapy completed Nilda Story, [employer] [address], [place], [address], [facility] 08/12/2024 16:04:35 4 48978 Therapeutic Exercise (1:1) completed Nilda Story, [employer] [address], [place], [address], [facility] 08/07/2024 12:22:14 4 60978: Manual therapy completed Nilda Story, [employer] [address], [place], [address], [facility] 08/07/2024 12:22:14 4 42524 Therapeutic Exercise (1:1) completed Nilda Story, [employer] [address], [place], [address], [facility] 08/05/2024 16:43:31 4 84603: Manual therapy completed Nilda Story [employer] [address], [place], [address], [facility] 08/05/2024 16:43:21 4 43925 Therapeutic Exercise (1:1) completed Tiffanie Hernandez DPT [address], [place], [address], [facility] 07/31/2024 16:54:17 4 18379: Low complexity PT Eval completed Tiffanie Hernandez DPT [address], [place], [address], [facility] 07/31/2024 16:56:02 4 G8419 BMI Outside Normal Parameters, F/U not Documented completed Tiffanie Hernnadez DPT [address], [place], [address], [facility] 07/31/2024 16:22:55 4 G8427 Current Medication Documented completed Tiffanie Hernandez DPT [address], [place], [address], [facility] 07/31/2024 16:22:59 4 Trigger Finger Kenalog Injection completed Maxim Michael PA-C [address], [place], [address], [facility] 06/24/2024 13:40:50 4 JZTrigger Finger Injection completed Rosendo Augustin PA-C [address], [place], [address], [facility] 02/15/2024 08:26:00 Imaging Results None recorded. Procedure Notes None recorded. Medical Equipment None Reported. Allergies Allergen ID Allergen Name Allergen Category Reaction Reaction Severity Criticality Documentation Date Start Date Code Code System Note Provider Name and Address Organization Details Recorded Time 75284 mold extract environme nt Not available Not available Not available 01/21/20242015 15249 8 RxNorm Not Available [facility] 12:32:15 Medications Name Sig Start Date Stop [...] in a dose pack as directed 6 HWy4aynq, 5 VMs9mrtw, 4 PO x2days, 3 WKk4blkt, 2 XJb0sxhf, 1 GZy9qjki 2024 active Not Available Not Available Not [...] Not Available Not Available Not Available Vitals Date Recorded Body height Body mass index (BMI) Body weight Provider Name and Address Organization Details Last Updated DateTime 11/20/2024 180.34 cm 25.2 kg/m2 32183.22 g JARED CHOI [place] [facility] 11/20/2024 13:10:41 Social History None recorded. Functional Status None recorded. Mental Status None recorded. Family History Nothing Reported. Medical History No medical history recorded. Past Encounters Encounter ID Performer Location Encounter Start Date Encounter Closed Date Diagnosis/Indication Diagnosis SNOMED-CT Code Diagnosis ICD10 Code Diagnosis Note [id number] Sandro Sánchez PA-C [facility] [place] [address] [place] [address] 11/20/2024 12:46:02 11/20/2024 14:13:51 Weakness of right hand [id number] R29.898 Health Concerns Section Related Observation LastModified by Organization Detai ls LastModified Time None Recorded Concern Status LastModified by Organization Details LastModified Time None Recorded Payers Encounter Date Sequence Insurance Name Policy Number Policy Montes Covered Member ID Montes Member ID Guarantor Name 11/20/2024 2 [place] [id number] Manuel So [id number] Manuel So 11/20/2024 1 [place] [facility] Manuel So [id number] Manuel So
--- OUTSIDE RECORDS SUMMARY | 2024-12-02 09:23 | XMS_ITS | Continuity of Care Document ---
Author Organization [place] - [facility] Address [address] [address] Care Team Providers Care Occupational Therapy Aides Teacher Name Role Phone RENAN FLOREZ Primary Care Provider [phone] Assessment Encounter Date Assessment Date Assessment LastModified by Organization Details LastModified Time 11/13/2024 11/13/2024 The devices were programmed wirelessly using the turf grower's software in [facility]. We reviewed using real-ear verification and adjusting the settings to best match the patient's hearing needs in order to obtain the best outcome. Given that the patient is a new user, we will perform this measurement at our next visit. The patient's concerns about using the devices were discussed. We reviewed the device options and what accessories are included. Reviewed features such as bluetooth, adjusting the volume control, and the use of a multimemory button for additional programs. Changing the wax filter was demonstrated. At the end of the visit, the patient practiced insertion/remov al and reported no pain or discomfort. Follow up in two to four weeks to discuss progress and address any concerns. The patient was also encouraged to utilize our drop-off servicing system in the unfortunate event that something happens to their device and/or to contact me through phone or email at their convenience. [email or web address] Not available 11/13/2024 07:50:20 Plan of Treatment Reminders Order Date Submit Date Provider Last Modified By Organization Details Last Modified Time Details Appointments GUNTER Fitting Follow Up (60) 2024 02:00P M Krystal SULLIVAN Not available Not available Not available Establish ed 15 2024 09:00A M DARBY CAMACHO PA-C Not available Not available Not available Lab None recorded. Referral None recorded. Procedures None recorded. Surgeries None recorded. Imaging None recorded. Medication Orders None recorded. Patient TargetsNo targets recorded. Patient InstructionsNo instructions recorded. Reason for Referral None Reported. Results Created Date Observation Date Name Description Value Unit Range Abnormal Flag Note LastModifiedBy Organization Detail LastModifiedTime 10/24/20 24 audio gram No observ ation record ed. BARCODE Not Available 2023 11:13:31 Result Notes None recorded. Problems Name Problem SNOMED Code Status Onset Date Resolution Date Notes Provider Name and Address Organization Details Recorded Time Cough 91012964 Active 2014 Cough; Note: Date Diagnosed : 02/01/2015 3:26 PM (786.2) Not Available [facility] 4 03:12:19 Diffuse otitis externa 15422056 Active 2014 Diffuse otitis externa, left ear; Note: Date Diagnosed : 08/24/2015 11:23 AM (H60.312) Diffuse otitis externa, left ear; Note: Changed from 380.10 to H60.312 ( 5 10:54 AM) , Date Diagnosed : 07/23/2015 1:17 PM (380.10) ; Start Date : 5 Not Available [facility] 4 03:12:20 Allergic rhinitis 24227308 Active 2014 Allergic rhinitis: Due to other allergen; Note: Date Diagnosed : 03/03/2015 10:05 AM (477.8) Allergi c rhinitis, unspecifi ed; Note: Changed from 477.9 to J30.0 ( 5 11:21 AM) , Changed from J30.0 to J30.9 ( 5 11:21 AM) , Date Diagnosed : 02/01/2015 3:26 PM (477.9) ; Start Date : 5 Not Available [facility] 4 03:12:20 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; Note: Date Diagnosed : 12/19/2016 9:35 AM (B48.8) Not Available [facility] 4 03:12:18 Impacted cerumen in right ear [id number] 39509 Active 2015 Impacted cerumen, right ear; Note: Date Diagnosed : 05/23/2016 9:17 AM (H61.21) Not Available [facility] 4 03:12:20 Sensorine ural hearing loss of bilateral ears 378578879 Active 2014 Sensorine ural HL, bilateral ; Note: Date Diagnosed : 06/21/2015 4:42 PM (389.18) ; Start Date : 5 Sensori neural hearing loss, bilateral ; Note: Date Diagnosed : 08/24/2015 11:40 AM (H90.3) Sensori neural hearing loss, bilateral ; Note: Changed from 389.18 to H90.3 ( 11:22 AM) , Date Diagnosed : 02/01/2015 3:26 PM (389.18) ; Start Date : 5 Not Available [facility] 4 03:12:19 Polyp of nasal cavity and/or nasal sinus 128865558 Active 2014 Nasal polyp, unspecifi ed; Note: Changed from 471.9 to J33.9 ( 5 11:21 AM) , Date Diagnosed : 02/01/2015 3:26 PM (471.9) Not Available [facility] 4 03:12:18 Impacted cerumen 23422743 Active 2015 Impacted cerumen; Note: Date Diagnosed : 05/23/2016 9:14 AM (380.4) Not Available [facility] 4 03:12:19 Impacted cerumen of bilateral ears [id number] 38272 Active 2015 Impacted cerumen, bilateral ; Note: Date Diagnosed : 05/08/2016 9:15 AM (H61.23) Not Available [facility] 4 03:12:19 Problem Notes None recorded. Procedures Surgical History Date Name Laterality Status Provider Name and Address Organization Details Recorded Time 4 Cerumen removal without microscope bilat completed DARBY CAMACHO PA-C [address] [place] [address], [phone], [facility] - [facility] 10/02/2024 09:13:30 Cerumen removal without microscope bilat completed KAEL LAN PA-C [address] [facility], [place], [address], [place] - [facility] 05/05/2024 13:15:12 Imaging Results None recorded. Procedure Notes None recorded. Medical Equipment None Reported. Medications Name Sig Start Date Stop Date Status Note LastModified by Organization Details LastModified Time amoxicill in 500 mg capsule TAKE 4 CAPSULES AN HOUR PRIOR TO DENTAL APPOINTM ENT AND THEN 1 CAPSULE 3 TIMES A DAY FOR 1 WEEK. active Not Available Not Available No t Available nystatin 100,000 unit/mL oral suspensio n SWISH AND SWALLOW 5ML BY MOUTH FOR 1 MINUTES FOUR TIMES DAILY FOR AT LEAST 48 HOURS AFTER PERIORAL SYMPTOMS RESOLVE active Not Available Not Available No t Available prednison e 10 mg tablet TAKE 2 TABLETS BY MOUTH DAILY FOR 5 DAYS active Not Available Not Available No t Available doxycycli ne hyclate 100 mg capsule TAKE 1 CAPSULE BY MOUTH TWICE A DAY FOR 7 DAYS active Not Available Not Available No t Available atorvasta tin 20 mg tablet TAKE 1 TABLET BY MOUTH EVERY DAY active Not Available Not Available No t Available atorvasta tin 10 mg tablet 2016 active Medicati on ID: [id number] D uration Value: 30 Brand Name: atorbunny Hernadez d Method: E-Prescr ibed Sub s Allowed: subs OK Speci al Instruct ion: TAKE 1 TABLET BY ORAL ROUTE EVERY DAY Medi cationGe nericNam e: atorvast atin Not Available Not Available Not Available amlodipin e 2.5 mg tablet TAKE 1 TABLET BY MOUTH EVERY DAY active Not Available Not Available No t Available prednisol one acetate 1 % eye drops,heather pension INSTILL 1 DROP INTO LEFT EYE 4 TIMES A DAY FOR 1 WEEK active Not Available Not Available No t Available tamsulosi n 0.4 mg capsule TAKE 1 CAPSULE BY MOUTH EVERY 12 HOURS active Not Available Not Available No t Available polymyxin B sulfate 10,000 unit-trim ethoprim 1 mg/mL eye drops INSTILL 1 DROP INTO RIGHT EYE EVERY 3 HOURS FOR 7 DAYS WHILE AWAKE DO NOT EXCEED 6 DOSES IN 24 HOURS active Not Available Not Available No t Available Advair Diskus 250 mcg-50 mcg/dose powder for inhalatio n 2014 active Medicati on ID: [id number] Du ration Value: 30 Brand Name: Libby Diskus S end Method: E-Prescr ibed Sub s Allowed: subs OK Speci al Instruct ion: INHALE 1 PUFF BY MOUTH 2 TIMES A DAY Medi cationGe nericNam e: Advair Diskus Not Available Not Available Not Available clotrimaz ole 1 % topical solution 2016 active Medicati on ID: [id number] P rescribe d By Name: BLANE Duarte nd Name: clotrimichelle huey Sen d Method: E-Prescr ibed Sub s Allowed: subs OK Speci al Instruct ion: 4 drops to affected ear 2 times a day X 30 days Med icationG enericNa me: clotrima zole Not Available Not Available Not Available omeprazol e 20 mg capsule,d elayed release 2014 active Medicati on ID: [id number] Du ration Value: 30 Brand Name: omeprazo le Send Method: E-Prescr ibed Sub s Allowed: subs OK Specpedro pablo al Instruct ion: 1 CAP(S) ONCE A DAY ORALLY 30 DAY(S) Noelle Tomas Name: omeprazo le Not Available Not Available Not Available monteluka st 10 mg tablet TAKE 1 TABLET BY MOUTH EVERY DAY active Not Available Not Available No t Available ammonium lactate 12 % topical cream 2017 active Medicati on ID: [id number] D uration Value: 20 Brand Name: ammonium lactate Send Method: E-Prescr ibed Sub s Allowed: subs OK Medic ationGen ericName : ammonium lactate Not Available Not Available Not Available Iophen C-NR 10 mg-100 mg/5 mL oral liquid 02/26 completed Medicati on ID: [id number] Du ration Value: 12 Reason: () Brand Name: Iophen C-NR Sen d Method: E-Prescr ibed Sub s Allowed: subs OK Speci al Instruct ion: TAKE 1 TEASPOON (5 ML) BY MOUTH AT BEDTIME NEEDED FOR COUGH Me dication GenericN lise: Iophen C-NR Not Available Not Available Not Available metoprolo l succinate ER 25 mg tablet,ex tended release 24 hr 2016 active Medicati on ID: [id number] D uration Value: 90 Brand Name: metoprol ol succinat e Send Method: E-Prescr ibed Sub s Allowed: subs OK Speci al Instruct ion: TAKE HALF A TABLET BY ORAL ROUTE EVERY DAY Medi cationGe nericNam e: metoprol ol succinat e Not Available Not Available Not Available Aspir-81 mg tablet,de layed release 02/20 completed Medicati on ID: [id number] Re ason: () Brand Name: Ivan-81 Send Method: E-Prescr ibed Sub s Allowed: subs OK Medic ationGen ericName : Aspir-81 Not Available Not Available Not Available ibuprofen 600 mg tablet TAKE 1 TABLET ONE HOUR PRIOR TO DENTAL APPOINTM ENT AND ONE TABLET EVERY 6 HOURS FOR PAIN. active Not Available Not Available No t Available methylpre dnisolone 4 mg tablets in a dose pack active Not Available Not Available Not Available albuterol sulfate HFA 90 mcg/actua tion aerosol inhaler TAKE 2 PUFFS INHALATI ON EVERY 4-6 HOURS NEEDED active Not Available Not Available No t Available fluticaso ne propionat e 50 mcg/actua tion nasal spray,[facility] 2014 active Medicati on ID: [id number] Du ration Value: 30 Brand Name: fluticas one Send Method: E-Prescr ibed Sub s Allowed: subs OK Speci al Instruct ion: USE 1 SPRAY TWICE A DAY EACH NOSTRIL Medicati onGeneri cName: fluticas one Not Available Not Available Not Available clotrimaz ole 1 % topical cream 12/19 completed Medicati on ID: [id number] Du ration Value: 14 Brand Name: clotrima zole Sen d Method: E-Prescr ibed Sub s Allowed: subs OK Medic ationGen ericName : clotrima zole Not Available Not Available Not Available doxycycli ne hyclate 100 mg tablet TAKE 1 TABLET BY MOUTH TWICE A DAY FOR 10 DAYS active Not Available Not Available No t Available finasteri de 5 mg tablet TAKE 1 TABLET BY MOUTH EVERY DAY active Not Available Not Available No t Available amoxicill in 875 mg-potass ium clavulana te 125 mg tablet TAKE 1 TABLET BY MOUTH TWICE A DAY FOR 7 DAYS active Not Available Not Available No t Available Laxative (bisacody l) 5 mg tablet,de layed release 4 TABLETS ORALLY DIRECTED X1 DAY active Not Available Not Available No t Available Crestor 20 mg tablet 09/29/ 2014 09/04 /2015 completed Medicati on ID: [id number] Du ration Value: 30 Reason: () Brand Name: Crestor Send Method: E-Prescr ibed Sub s Allowed: subs OK Speci al Instruct ion: TAKE 1 TABLET BY MOUTH EVERY DAY AT BEDTIME Medicati onGeneri cName: Crestor Not Available Not Available Not Available Gas Relief Extra Strength 125 mg chewable tablet 3 CHEWABLE TABLETS ORALLY DIRECTED 1 DAY active Not Available Not Available No t Available Flovent HFA 110 mcg/actua tion aerosol inhaler 02/26 completed Medicati on ID: [id number] Du ration Value: 30 Reason: () Brand Name: Flovent HFA Send Method: E-Prescr ibed Sub s Allowed: subs OK Speci al Instruct ion: INAHLE 2 PUFF 2 TIMES A DAY INHALED Medicati onGeneri cName: Flovent HFA Not Available Not Available Not Available chlorhexi dine gluconate 0.12 % mouthwash RINSE MOUTH WITH 15ML (1 CAPFUL) FOR 30 SECONDS IN MORNING AND EVENING AFTER BRUSHING , THEN SPIT active Not Available Not Available No t Available budesonid e-formote rol HFA 160 mcg-4.5 mcg/actua tion aerosol inhaler INHALE 2 PUFFS BY MOUTH TWICE A DAY FOR 30 DAYS active Not Available Not Available No t Available GaviLyte- G 236 gram-22.7 4 gram-6.74 gram-5.86 gram oral solution TAKE DIRECTED active Not Available Not Available No t Available Breo Ellipta 100 mcg-25 mcg/dose powder for inhalatio n 2017 active Medicati on ID: [id number] D uration Value: 30 Brand Name: Breo Ellipta Send Method: E-Prescr ibed Sub s Allowed: subs OK Medic ationGen ericName : Breo Ellipta Not Available Not Available Not Available fluticaso ne 113 mcg-salme terol 14 mcg/actua tion breath activated powdr INHALE 1 PUFF BY MOUTH EVERY 12 HOURS active Not Available Not Available No t Available fluticaso ne 232 mcg-salme terol 14 mcg/actua tion breath activated powdr INHALE 1 PUFF EVERY 12 HOURS FOR 30 DAYS active Not Available Not Available No t Available Vitals None Recorded Social History None recorded. Functional Status None recorded. Mental Status None recorded. Family History Nothing Reported. Medical History No medical history recorded. Past Encounters Encounter ID Performer Location Encounter Start Date Encounter Closed Date Diagnosis/Indication Diagnosis SNOMED-CT Code Diagnosis ICD10 Code Diagnosis Note [id number] Krystal SULLIVAN [place] [address] [facility], [address] [place] [address] 11/13/2024 13:53:46 11/14/2024 11:54:27 Sensorineural hearing loss of bilateral ears 898466923 H90.3 Health Concerns Section Related Observation LastModified by Organization Detai ls LastModified Time None Recorded Concern Status LastModified by Organization Details LastModified Time None Recorded Payers Encounter Date Sequence Insurance Name Policy Number Policy Montes Covered Member ID Montes Member ID Guarantor Name 11/13/2024 1 [place] [employer] Manuel So [id number] Manuel So 11/13/2024 2 [place] [id number] Manuel So [id number] Manuel So Notes Date Note Type Note Provider Name and Address Organization Details Recorded Time 11/13/2024 text/html Patient returned for an orientation fitting of {{hearing devices* a hearing device in the right ear a hearing device in the left ear}}. They are {{a first time user of amplification a longstanding user of amplification*}}. They reported significant difficulty communicating and understanding speech and {{hearing devices were* the hearing device was}} ordered through a 3rd green party vendor to be fitted at our office. The patient had selected this make and model for their lifestyle and audiological needs. Krystal SULLIVAN [address] [facility],[place] [address], [place], [address], [facility] - [facility] 11/14/2024 13:03:12
--- OUTSIDE RECORDS SUMMARY | 2024-12-02 09:23 | XMS_ITS | Continuity of Care Document ---
Author Organization [place] - [facility], [facility] Address [address] [place] [address] Care Team Providers Care Acute Care Assistant Name Role Phone RENAN FLOREZ Primary Care Provider Assessment Encounter Date Assessment Date Assessment LastModified by Organization Details LastModified Time 10/02/2024 10/02/2024 79-year-old male presents for cerumen removal. Cerumen impaction removed bilaterally. Bilateral TMs are intact. Follow up in 3-4 months for routine debridement. [email or web address] Not available 10/02/2024 09:45:41 Plan of Treatment Reminders Order Date Submit [...] and Address Organization Details Recorded Time Cough 00504993 Active 2014 Cough; Note: Date Diagnosed : 02/01/2015 3:26 PM (786.2) Not Available [facility] 4 03:12:19 Diffuse otitis externa 11662321 Active 2014 Diffuse otitis externa, left ear; Note: Date Diagnosed : 08/24/2015 11:23 AM (H60.312) Diffuse otitis externa, left ear; Note: Changed from 380.10 to H60.312 ( 10:54 AM) , Date Diagnosed : 07/23/2015 1:17 PM (380.10) ; Start Date : 5 Not Available [facility] 4 03:12:20 Allergic rhinitis 22057810 Active 2014 Allergic rhinitis: Due to other allergen; Note: Date Diagnosed : 03/03/2015 10:05 AM (477.8) Allergi c rhinitis, unspecifi ed; Note: Changed from 477.9 to J30.0 ( 11:21 AM) , Changed from J30.0 to J30.9 ( 11:21 AM) , Date Diagnosed : 02/01/2015 3:26 PM (477.9) ; Start Date : 5 Not Available [facility] 4 03:12:20 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; Note: Date Diagnosed : 12/19/2016 9:35 AM (B48.8) Not Available [facility] 4 03:12:18 Impacted cerumen in right ear 75026656944 35990 Active 2015 Impacted cerumen, right ear; Note: Date Diagnosed : 05/23/2016 9:17 AM (H61.21) Not Available [facility] 4 03:12:20 Sensorine ural hearing loss of bilateral ears 743884330 Active 2014 Sensorine ural HL, bilateral ; Note: Date Diagnosed : 06/21/2015 4:42 PM (389.18) ; Start Date : 5 Sensori neural hearing loss, bilateral ; Note: Date Diagnosed : 08/24/2015 11:40 AM (H90.3) Sensori neural hearing loss, bilateral ; Note: Changed from 389.18 to H90.3 ( 5 11:22 AM) , Date Diagnosed : 02/01/2015 3:26 PM (389.18) ; Start Date : 5 Not Available [facility] 4 03:12:19 Polyp of nasal cavity and/or nasal sinus 315961342 Active 2014 Nasal polyp, unspecifi ed; Note: Changed from 471.9 to J33.9 ( 5 11:21 AM) , Date Diagnosed : 02/01/2015 3:26 PM (471.9) Not Available [facility] 4 03:12:18 Impacted cerumen 59874923 Active 2015 Impacted cerumen; Note: Date Diagnosed : 05/23/2016 9:14 AM (380.4) Not Available [facility] 4 03:12:19 Impacted cerumen of bilateral ears 64669320684 78014 Active 2015 Impacted cerumen, bilateral ; Note: Date Diagnosed : 05/08/2016 9:15 AM (H61.23) Not Available [facility] 4 03:12:19 Problem Notes None recorded. Procedures Surgical History Date Name Laterality Status Provider Name and Address Organization Details Recorded Time 4 Cerumen removal without microscope bilat completed DARBY CAMACHO PA-C [address] [place] [address], [phone], [facility] 10/02/2024 09:13:30 4 Cerumen removal without microscope bilat completed KAEL LAN PA-C [address] [place] [address], [phone], [facility] 05/05/2024 13:15:12 Imaging Results None recorded. [...] mg tablet 2016 active Medicati on ID: [id number] D uration Value: 30 Brand Name: atorvast atin Sen d Method: E-Prescr ibed Sub s [...] inhalatio n 2014 active Medicati on ID: [id number] Du ration Value: 30 Brand Name: Advair Diskus S end Method: E-Prescr ibed Sub s Allowed: subs OK Speci al Instruct ion: INHALE 1 PUFF BY MOUTH 2 TIMES A DAY Medi cationGe nericNam e: Advair Diskus Not Available Not Available Not Available clotrimaz ole 1 % topical solution 2016 active Medicati on ID: [id number] P rescridominick d By Name: BLANE Duarte nd Name: clotrima zolkenn Sen d Method: E-Prescr ibed Sub s Allowed: subs OK Speci al Instruct ion: 4 drops to affected ear 2 times a day X 30 days Med icationG enericNa me: clotrima zole Not Available Not Available Not Available omeprazol e 20 mg capsule,d elayed release 2014 active Medicati on ID: [id number] Du ration Value: 30 Brand Name: omeprazo le Send Method: E-Prescr ibed Sub s Allowed: subs OK Speci al Instruct ion: 1 CAP(S) ONCE A DAY ORALLY 30 DAY(S) Noelle Vasquesic Name: omeprazo le Not Available Not Available Not Available monteluka st 10 mg tablet TAKE 1 TABLET BY MOUTH EVERY DAY active Not Available Not Available No t Available ammonium lactate 12 % topical cream 2017 active Medicati on ID: [id number] D uration Value: 20 Brand Name: ammonium lactate Send Method: E-Prescr ibed Sub s Allowed: subs OK Medic ationGen ericName : ammonium lactate Not Available Not Available Not Available Iophen C-NR 10 mg-100 mg/5 mL oral liquid 02/26 completed Medicati on ID: [id number] Du ration Value: 12 Reason: () Brand [...] 24 hr 2016 active Medicati on ID: [id number] D uration Value: 90 Brand Name: metoprol ol succinat e Send Method: E-Prescr ibed Sub s Allowed: subs OK Speci al Instruct ion: TAKE HALF A TABLET BY ORAL ROUTE EVERY DAY Medi cationGe nericNam e: metoprol ol succinat e Not Available Not Available Not Available Aspir-81 mg tablet,de layed release 02/20 completed Medicati on ID: [id number] Re ason: () Brand Name: Aspir-81 Send Method: E-Prescr ibed Sub s Allowed: [...] ne propionat e 50 mcg/actua tion nasal spray,heather norbertoon 2014 active Medicati on ID: [id number] Du ration Value: 30 Brand Name: fluticas one Send Method: E-Prescr ibed Sub s Allowed: subs OK Speci al Instruct ion: USE 1 SPRAY TWICE A DAY EACH NOSTRIL Medicati onGeneri cName: fluticas one Not Available Not Available Not Available clotrimaz ole 1 % topical cream 12/19 completed Medicati on ID: 47572 Du ration Value: 14 Brand Name: clotrima [...] No t Available Crestor 20 mg tablet 07/23 completed Medicati on ID: [id number] Du ration Value: 30 Reason: () Brand [...] aerosol inhaler 02/26 completed Medicati on ID: [id number] Du ration Value: 30 Reason: () Brand [...] inhalatio n 2017 active Medicati on ID: [id number] D uration Value: 30 Brand Name: Breo [...] Available Not Available No t Available Vitals Date Recorded Body height Body mass index (BMI) Body weight Provider Name and Address Organization Details Last Updated DateTime 10/02/2024 180.34 cm 24.7 kg/m2 96200.85 g Antonio Strauss [place] - [facility] 10/02/2024 09:07:24 Social History None recorded. Functional Status None recorded. Mental Status None recorded. Family History Nothing Reported. Medical History No medical history recorded. Past Encounters Encounter ID Performer Location Encounter Start Date Encounter Closed Date Diagnosis/Indication Diagnosis SNOMED-CT Code Diagnosis ICD10 Code Diagnosis Note [id number] Krystal SULLIVAN [place] [address] [facility],[place] [address] [facility] [place] [place] [phone] 09/29/2024 13:54:59 10/03/2024 07:22:43 Sensorineural hearing loss of bilateral ears 924222627 H90.3 [id number] LEW TAPIA MD [facility] [address] [address] 10/02/2024 08:54:12 10/02/2024 09:21:31 Impacted cerumen of bilateral ears 0085810333 070952 H61.23 Health Concerns Section Related Observation LastModified by Organization Detai ls LastModified Time None Recorded Concern Status LastModified by Organization Details LastModified Time None Recorded Payers Encounter Date Sequence Insurance Name Policy Number Policy Montes Covered Member ID Montes Member ID Guarantor Name 10/02/2024 1 [place] [employer] Manuel So [id number] Manuel So 10/02/2024 2 [place] [id number] Manuel So [id number] Manuel So Notes Date Note Type Note Provider Name and Address Organization Details Recorded Time 10/02/2024 text/html 79-year-old male presents for cerumen removal. No concerns today. LEW TAPIA MD [address] [place] [address], [phone], [facility] - [facility] 10/02/2024 21:24:42
--- OUTSIDE RECORDS SUMMARY | 2024-12-02 09:23 | XMS_ITS | Continuity of Care Document ---
Author Organization [place] - [facility] Address [address] [address] Care Team Providers Care Stick Feeder Name Role Phone RENAN FLOREZ Primary Care Provider Assessment Encounter Date Assessment Date Assessment LastModified by Organization Details LastModified Time 09/29/2024 09/29/2024 Wax filter was observed at the canal aperture and removed without complication. Provided patient a cleaning brush with wax loop and demonstrated how to clean the sound bore now that it no longer has a wax filter. Recommended against inserting wax filters; my best guess is that the cerustop grommet fell off and the patient put a wax filter into the sound bore without the grommet to hold it in, leading it to fall off during use. Recommend updated technology but patient declined at this time citing his age & cost of hearing aids. [email or web address] Not available 09/29/2024 14:21:25 Plan of Treatment Reminders Order Date Submit [...] and Address Organization Details Recorded Time Cough 47116580 Active 2014 Cough; Note: Date Diagnosed : 02/01/2015 3:26 PM (786.2) Not Available [facility] 4 03:12:19 Diffuse otitis externa 02537757 Active 2014 Diffuse otitis externa, left ear; Note: Date Diagnosed : 08/24/2015 11:23 AM (H60.312) Diffuse otitis externa, left ear; Note: Changed from 380.10 to H60.312 ( 10:54 AM) , Date Diagnosed : 07/23/2015 1:17 PM (380.10) ; Start Date : 5 Not Available [facility] 4 03:12:20 Allergic rhinitis 65396632 Active 2014 Allergic rhinitis: Due to other allergen; Note: Date Diagnosed : 03/03/2015 10:05 AM (477.8) Allergi c rhinitis, unspecifi ed; Note: Changed from 477.9 to J30.0 ( 11:21 AM) , Changed from J30.0 to J30.9 ( 11:21 AM) , Date Diagnosed : 02/01/2015 3:26 PM (477.9) ; Start Date : 5 Not Available [facility] 4 03:12:20 Mycosis 2086009 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; Note: Date Diagnosed : 12/19/2016 9:35 AM (B48.8) Not Available [facility] 4 03:12:18 Impacted cerumen in right ear 16596677095 95610 Active 2015 Impacted cerumen, right ear; Note: Date Diagnosed : 05/23/2016 9:17 AM (H61.21) Not Available [facility] 4 03:12:20 Sensorine ural hearing loss of bilateral ears 452196850 Active 2014 Sensorine ural HL, bilateral ; [...] ; Start Date : 5 Not Available [facility] 4 03:12:19 Polyp of nasal cavity and/or nasal sinus 380355830 Active 2014 Nasal polyp, unspecifi ed; Note: Changed from 471.9 to J33.9 ( 5 11:21 AM) , Date Diagnosed : 02/01/2015 3:26 PM (471.9) Not Available [facility] 4 03:12:18 Impacted cerumen 53974295 Active 2015 Impacted cerumen; Note: Date Diagnosed : 05/23/2016 9:14 AM (380.4) Not Available [facility] 4 03:12:19 Impacted cerumen of bilateral ears 81799685195 02204 Active 2015 Impacted cerumen, bilateral ; Note: Date Diagnosed : 05/08/2016 9:15 AM (H61.23) Not Available [facility] 4 03:12:19 Problem Notes None recorded. Procedures Surgical History Date Name Laterality Status Provider Name and Address Organization Details Recorded Time 4 Cerumen removal without microscope bilat completed DARBY CAMACHO PA-C [address] [place] [address], [phone], [facility] - [facility] 10/02/2024 09:13:30 4 Cerumen removal without microscope bilat completed KAEL LAN PA-C [address] [place] [address], [phone], [facility] - [facility] 05/05/2024 13:15:12 Imaging Results None recorded. [...] mg tablet 2016 active Medicati on ID: [id number] D uration Value: 30 Brand Name: atorvast [...] inhalatio n 2014 active Medicati on ID: [id number] Du ration Value: 30 Brand Name: Advair Diskus S end Method: E-Prescr ibed Sub s Allowed: subs OK Speci al Instruct ion: INHALE 1 PUFF BY MOUTH 2 TIMES A DAY Medi cationGe nericNam e: Advair Diskus Not Available Not Available Not Available clotrimaz ole 1 % topical solution 2016 active Medicati on ID: [id number] P rescribe d By Name: BLANE Duarte nd Name: nicolás arzate Sen d Method: E-Prescr ibed Sub s Allowed: subs OK Speci al Instruct ion: 4 drops to affected ear 2 times a day X 30 days Med icationG enericNa me: clotrima zole Not Available Not Available Not Available omeprazol e 20 mg capsule,d elayed release 2014 active Medicati on ID: [id number] Du ration Value: 30 Brand Name: omeprazo le Send Method: E-Prescr ibed Sub s Allowed: subs OK Speci al Instruct ion: 1 CAP(S) ONCE A DAY ORALLY 30 DAY(S) M tonya Tomas Name: omeprazo le Not Available Not Available Not Available mont[address] st 10 mg tablet TAKE 1 TABLET BY MOUTH EVERY DAY active Not Available Not Available No t Available ammonium lactate 12 % topical cream 2017 active Medicati on ID: [id number] D uration Value: 20 Brand Name: ammonium lactate Send Method: E-Prescr ibed Sub s Allowed: subs OK Medic ationGen ericName : ammonium lactate Not Available Not Available Not Available Iophen C-NR 10 mg-100 mg/5 mL oral liquid 02/26 completed Medicati on ID: [id number] Du ration Value: 12 Reason: () Brand [...] 24 hr 2016 active Medicati on ID: [id number] D uration Value: 90 Brand Name: metoprol ol succinat e Send Method: E-Prescr ibed Sub s Allowed: subs OK Speci al Instruct ion: TAKE HALF A TABLET BY ORAL ROUTE EVERY DAY Medi cationGe nericNam e: metoprol ol succinat e Not Available Not Available Not Available Aspir-81 mg tablet,de layed release 02/20 completed Medicati on ID: 31235 Re ason: () Brand Name: Aspir-81 Send [...] propionat e 50 mcg/actua tion nasal spray,heather pension 2014 active Medicati on ID: [id number] Du ration Value: 30 Brand Name: fluticas one Send Method: E-Prescr ibed Sub s Allowed: subs OK Speci al Instruct ion: USE 1 SPRAY TWICE A DAY EACH NOSTRIL Medicati onGeneri cName: fluticas one Not Available Not Available Not Available clotrimaz ole 1 % topical cream 12/19 completed Medicati on ID: [id number] Du ration Value: 14 Brand Name: clotrima [...] mg tablet 07/23 completed Medicati on ID: 55785 Du ration Value: 30 Reason: () Brand [...] aerosol inhaler 02/26 completed Medicati on ID: [id number] Du ration Value: 30 Reason: () Brand [...] inhalatio n 2017 active Medicati on ID: [id number] D uration Value: 30 Brand Name: Breo [...] SNOMED-CT Code Diagnosis ICD10 Code Diagnosis Note [id number] Krystal SULLIVAN [place] 100 [facility],[place] 100 [facility] [place] [address] 09/29/2024 13:54:59 10/03/2024 07:22:43 Sensorineural hearing loss of bilateral ears 565509860 H90.3 Health Concerns Section Related Observation LastModified by Organization Detai ls LastModified Time None Recorded Concern Status LastModified by Organization Details LastModified Time None Recorded Payers Encounter Date Sequence Insurance Name Policy Number Policy Montes Covered Member ID Montes Member ID Guarantor Name 09/29/2024 1 [place] [employer] Manuel So [id number] Manuel So 09/29/2024 2 [place] [id number] Manuel So [id number] Manuel So Notes Date Note Type Note Provider Name and Address Organization Details Recorded Time 09/29/2024 text/html Patient returns because a wax filter had fallen off the tip of his earmold into his canal. AALIYAH CALDERÓN, [facility] 100 [facility],[place] [address], [place], [address], [facility] - [facility] 09/29/2024 14:22:17
--- OUTSIDE RECORDS SUMMARY | 2024-12-02 09:23 | XMS_ITS | Data Portability ---
Author Organization [place] - [facility] Address [address] [address] Care Team Providers Care Occup Ther Name Role Phone RENAN FLOREZ Primary Care [...] his age & cost of hearing aids. [email or web address] Not available 09/29/2024 14:21:25 10/02/2024 10/02/2024 79-year-old male presents for cerumen removal. Cerumen impaction removed bilaterally. Bilateral TMs are intact. Follow up in 3-4 months for routine debridement. [email or web address] Not available 10/02/2024 09:45:41 11/13/2024 11/13/2024 The devices were programmed wirelessly using the reaming machine operator for plastic's software in [facility]. We reviewed using real-ear verification and adjusting [...] through phone or email at their convenience. [email or web address] Not available 11/13/2024 07:50:20 Plan of Treatment [...] Abnormal Flag Note LastModifiedBy Organization Detail LastModifiedTime 07/09/2005/26/2019 imagi ng/di agnos tic resul t No observ ation record ed. [email or web address] Not Available 05:42:03 07/09/20 24 10/11/2022 imagi ng/di agnos tic resul t No observ ation record ed. [email or web address] Not Available 05:42:10 07/09/20 24 10/11/2022 imagi ng/di agnos tic resul t No observ ation record ed. [email or web address] Not Available 05:42:12 07/09/20 24 10/11/2022 imagi ng/di agnos tic resul t No observ ation record ed. [email or web address] Not Available 05:42:19 07/09/20 24 03/16/2022 audio gram No observ ation record ed. [email or web address] Not Available 05:42:38 08/21/20 24 03/30/2021 audio gram No observ ation record ed. [email or web address] Not Available 05:42:46 07/09/20 24 10/07/2020 audio gram No observ ation record ed. [email or web address] Not Available 05:43:19 07/09/20 24 10/11/2022 audio gram No observ ation record ed. [email or web address] Not Available 05:43:25 10/24/20 audio gram No observ ation record ed. [email or web address] Not Available 2023 11:13:31 Result Notes None recorded. Problems Name Problem SNOMED Code Status Onset Date Resolution Date Notes Provider Name and Address Organization Details Recorded Time Cough 09596038 Active 2014 Cough; Note: Date Diagnosed : 02/01/2015 3:26 PM (786.2) Not Available [facility] 4 03:12:19 Diffuse otitis externa 52908696 Active 2014 Diffuse otitis externa, left ear; Note: Date Diagnosed : 08/24/2015 11:23 AM (H60.312) Diffuse otitis externa, left ear; Note: Changed from 380.10 to H60.312 ( 5 10:54 AM) , Date Diagnosed : 07/23/2015 1:17 PM (380.10) ; Start Date : 5 Not Available [facility] 4 03:12:20 Allergic rhinitis 03830260 Active 2014 Allergic rhinitis: Due to other allergen; Note: Date Diagnosed : 03/03/2015 10:05 AM (477.8) Allergi c rhinitis, unspecifi ed; Note: Changed from 477.9 to J30.0 ( 5 11:21 AM) , Changed from J30.0 to J30.9 ( 5 11:21 AM) , Date Diagnosed : 02/01/2015 3:26 PM (477.9) ; Start Date : 5 Not Available [facility] 4 03:12:20 Mycosis 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; Note: Date Diagnosed : 12/19/2016 9:35 AM (B48.8) Not Available [facility] 4 03:12:18 Impacted cerumen in right ear 70519991632 12743 Active 2015 Impacted cerumen, right ear; Note: Date Diagnosed : 05/23/2016 9:17 AM (H61.21) Not Available [facility] 4 03:12:20 Sensorine ural hearing loss of bilateral ears 374808230 Active 2014 Sensorine ural HL, bilateral ; [...] ; Start Date : 5 Not Available [facility] 4 03:12:19 Polyp of nasal cavity and/or nasal sinus 194683240 Active 2014 Nasal polyp, unspecifi ed; Note: Changed from 471.9 to J33.9 ( 5 11:21 AM) , Date Diagnosed : 02/01/2015 3:26 PM (471.9) Not Available [facility] 4 03:12:18 Impacted cerumen 85025974 Active 2015 Impacted cerumen; Note: Date Diagnosed : 05/23/2016 9:14 AM (380.4) Not Available [facility] 4 03:12:19 Impacted cerumen of bilateral ears 64996546877 04113 Active 2015 Impacted cerumen, bilateral ; Note: Date Diagnosed : 05/08/2016 9:15 AM (H61.23) Not Available [facility] 4 03:12:19 Problem Notes None recorded. Procedures Surgical History Date Name Laterality Status Provider Name and Address Organization Details Recorded Time 4 Cerumen removal without microscope bilat completed DARBY CAMACHO PA-C 100 [facility], [place], [address], [facility] - [facility] 10/02/2024 09:13:30 Cerumen removal without microscope bilat completed KAEL LAN PA-C 100 [facility] [place], [place], [address], [facility] - [facility] 05/05/2024 13:15:12 Imaging Results Imaging Date Name Status LastModified by Organiz ation Details LastModified Time 05/26/2019 imaging/diagno stic result completed Information not available 07/09/2024 05:42:03 10/11/2022 imaging/diagno stic result completed Information not available 07/09/2024 05:42:10 10/11/2022 imaging/diagno stic result completed Information not available 07/09/2024 05:42:12 10/11/2022 imaging/diagno stic result completed Information not available 07/09/2024 05:42:19 03/16/2022 audiogram completed Information not available 07/09/2024 05:42:38 03/30/2021 audiogram completed Information not available 07/09/2024 05:42:46 10/07/2020 audiogram completed Information not available 07/09/2024 05:43:19 10/11/2022 audiogram completed Information not available 07/09/2024 05:43:25 10/24/2024 audiogram completed BARCODE Information no t available 10/24/2024 11:13:31 Procedure Notes None recorded. Medical Equipment None [...] mg tablet 2016 active Medicati on ID: [id number] D uration Value: 30 Brand Name: atorvasga sarah Sen d Method: E-Prescr ibed Sub s [...] inhalatio n 2014 active Medicati on ID: [id number] Du ration Value: 30 Brand Name: Advair Diskus S end Method: E-Prescr ibed Sub s Allowed: subs OK Speci al Instruct ion: INHALE 1 PUFF BY MOUTH 2 TIMES A DAY Medi cationGe nericNam e: Advair Diskus Not Available Not Available Not Available clotrimaz ole 1 % topical solution 2016 active Medicati on ID: [id number] Gorge beasley By Name: BLANE Duarte nd Name: clotrimichelle Hernadez d Method: E-Prescr ibed Sub s Allowed: subs OK Speci al Instruct ion: 4 drops to affected ear 2 times a day X 30 days Med icationG enericNa me: clotrima zole Not Available Not Available Not Available omeprazol e 20 mg capsule,d elayed release 2014 active Medicati on ID: [id number] Du ration Value: 30 Brand Name: omeprazo [...] topical cream 2017 active Medicati on ID: [id number] D uration Value: 20 Brand Name: ammonium lactate Send Method: E-Prescr ibed Sub s Allowed: subs OK Medic ationGen ericName : ammonium lactate Not Available Not Available Not Available Iophen C-NR 10 mg-100 mg/5 mL oral liquid 02/26 completed Medicati on ID: 46694 Du ration Value: 12 Reason: () Brand [...] 24 hr 2016 active Medicati on ID: 664166 D uration Value: 90 Brand Name: metoprol ol succinat e Send Method: E-Prescr ibed Sub s Allowed: subs OK Speci al Instruct ion: TAKE HALF A TABLET BY ORAL ROUTE EVERY DAY Medi cationGe nericNam e: metoprol ol succinat e Not Available Not Available Not Available Aspir-81 mg tablet,de layed release 02/20 completed Medicati on ID: 83854 Re ason: () Brand Name: Aspir-81 Send [...] spray,heather pension 2014 active Medicati on ID: 73514 Du ration Value: 30 Brand Name: fluticas one Send Method: E-Prescr ibed Sub s Allowed: subs OK Speci al Instruct ion: USE 1 SPRAY TWICE A DAY EACH NOSTRIL Medicati onGeneri cName: fluticas one Not Available Not Available Not Available clotrimaz ole 1 % topical cream 12/19 completed Medicati on ID: 41119 Du ration Value: 14 Brand Name: clotrima [...] mg tablet 07/23 completed Medicati on ID: 34856 Du ration Value: 30 Reason: () Brand [...] aerosol inhaler 02/26 completed Medicati on ID: 16799 Du ration Value: 30 Reason: () Brand [...] inhalatio n 2017 active Medicati on ID: 930728 D uration Value: 30 Brand Name: Breo [...] Updated DateTime 10/02/2024 180.34 cm 24.7 kg/m2 73497.85 g Antonio Strauss [place] - [facility] 10/02/2024 09:07:24 Social History None recorded. Functional Status None recorded. Mental Status None recorded. Family History Nothing Reported. Medical History No medical history recorded. Past Encounters Encounter ID Performer Location Encounter Start Date Encounter Closed Date Diagnosis/Indication Diagnosis SNOMED-CT Code Diagnosis ICD10 Code Diagnosis Note [id number] LISSET MARES MD [facility] [address] [address] 05/05/2024 13:00:46 05/05/2024 13:20:35 Impacted cerumen of bilateral ears [id number] 893971 H61.23 Recurrent Cerumen Impactions : Ears were meticulous ly cleaned bilaterall y today with a curette and suction. The patient tolerated this well and will follow up for repeat debridemen t per routine. Sensorineu ral hearing loss of bilateral ears 396199848 H90.3 [id number] Krystal SULLIVAN [place] 100 [facility] 100 [place] [address] 09/29/2024 13:54:59 10/03/2024 07:22:43 Sensorineural hearing loss of bilateral ears 101813228 H90.3 [id number] LEW TAPIA MD [facility] of [address] [address] 10/02/2024 08:54:12 10/02/2024 09:21:31 Impacted cerumen of bilateral ears 0538142686 397188 H61.23 [id number] Krystal SULLIVAN [place] 100 [facility] 100 [place] [address] 11/13/2024 13:53:46 11/14/2024 11:54:27 Sensorineural hearing loss of bilateral ears 809708412 H90.3 Health Concerns Section Related Observation LastModified by Organization Detai ls LastModified Time None Recorded Concern Status LastModified by Organization Details LastModified Time None Recorded Advance Directives Directive None Recorded Payers Encounter Date Sequence Insurance Name Policy Number Policy Montes Covered Member ID Montes Member ID Guarantor Name 05/05/2024 1 [place] Manuel H Judah [id number] Manuel Seo Judah 05/05/2024 2 [place] [id number] Manuel So [id number] Manuel So 09/29/2024 1 [place] [employer] Manuel Gabbi Judah [id number] Manuel Gabbi Judah 09/29/2024 2 [place] [id number] Manuel So [id number] Manuelstephanie So 10/02/2024 1 [place] [employer] Manuel So [id number] Manuel So 10/02/2024 2 [place] [id number] Manuel So [id number] Mnauel So 11/13/2024 1 [place] [facility] Manuel So [id number] Manuel So 11/13/2024 2 [place] [id number] Manuel So [id number] Manuel So Notes Date Note Type Note Provider Name and Address Organization Details Recorded Time 05/05/2024 text/html 78-year-old male presents for evaluation of the ears. He reports his hearing has not changed. His hearing aids fit well and provide good benefit. He denies otalgia and otorrhea. LISSET MARES MD [address] [place] [address], [address], [facility] - [facility] 05/06/2024 08:45:02 09/29/2024 text/html Patient returns because a wax filter had fallen off the tip of his earmold into his canal. Krystal SULLIVAN [address] [place] [address], [address], [facility] 09/29/2024 14:22:17 10/02/2024 text/html 79-year-old male presents for cerumen removal. No concerns today. LEW TAPIA MD [address] [place] [address], [address], [facility] - [facility] 10/02/2024 21:24:42 11/13/2024 text/html Patient returned for an orientation fitting of {{hearing devices* a hearing device in the right ear a hearing device in the left ear}}. They are {{a first time user of amplification a longstanding user of amplification*}}. They reported significant difficulty communicating and understanding speech and {{hearing devices were* the hearing device was}} ordered through a 3rd alliance party vendor to be fitted at our office. The patient had selected this make and model for their lifestyle and audiological needs. AALIYAH CALDERÓN, [facility] 100 [facility],[place] [address], [place], [address], [place] - [facility] 11/14/2024 13:03:12
== END 2024-12-02 09:15 | disposition home or self-care (01) ==
PROVIDERS: PCP Internal Medicine; Visit Provider Hospitalist
DX: J44.9 Chronic obstructive pulmonary disease, unspecified (principal); R91.8 Other nonspecific abnormal finding of lung field; R05.3 Chronic cough; J40 Bronchitis, not specified as acute or chronic
CPT/HCPCS: 99214

== ENCOUNTER → 2024-12-02 08:54 | Outpatient (BNVA) | payer MEDICARE, SELFPAY | PROVIDERS: PCP Internal Medicine; Visit Provider Hospitalist | DX: J44.9 Chronic obstructive pulmonary disease, unspecified (principal); J40 Bronchitis, not specified as acute or chronic; R91.8 Other nonspecific abnormal finding of lung field; R05.3 Chronic cough | CPT/HCPCS: 99212 ==

== ENCOUNTER 2024-12-11 13:30 | Outpatient (REF) | payer MEDICARE, SELFPAY ==
--- NOTE | ~2024-12-11 | CT_ITS ---
CLINICAL HISTORY: J18.9 - Pneumonia, unspecified organism CT chest without contrast Comparison: None Findings: The heart size is normal. The visualized thyroid and mediastinum are unremarkable. There is lingular segment left upper and bilateral lower lobe scarring or subsegmental atelectasis. The upper abdomen is unremarkable. No acute fractures. IMPRESSION: 1. Left upper and bilateral lower lobe scar versus subsegmental atelectasis. This document has been electronically signed by: Rohan Roth MD on 12/12/2024 08:50:26
--- OUTSIDE RECORDS SUMMARY | 2024-12-11 15:57 | XMS_ITS | Data Portability ---
Author Organization [place] - [facility], Allergy Address [address] [address] Care Team Providers Care Belt Measurer Name Role Phone RENAN FLOREZ Primary Care [...] his age & cost of hearing aids. [email or web address] Not available 09/29/2024 14:21:25 10/02/2024 10/02/2024 79-year-old male presents for cerumen removal. Cerumen impaction removed bilaterally. Bilateral TMs are intact. Follow up in 3-4 months for routine debridement. [email or web address] Not available 10/02/2024 09:45:41 11/13/2024 11/13/2024 The devices were programmed wirelessly using the high pressure kettle operator's software in [facility]. We reviewed using real-ear verification and adjusting [...] through phone or email at their convenience. [email or web address] Not available 11/13/2024 07:50:20 Plan of Treatment Reminders Order Date Submit Date Provider Last Modified By Organization Details Last Modified Time Details Appointments GUNTER Flexible Appointme nt 2024 10:00A [facility] Not available Not available Not available GUNTER Fitting Follow Up (60) 2024 02:00P [...] Abnormal Flag Note LastModifiedBy Organization Detail LastModifiedTime 07/09/20 24 05/26/2019 imagi ng/di agnos tic resul t No [...] ation record ed. [email or web address] Not Available 05:42:19 08/21/03/16/2022 audio gram No observ ation record ed. [email or web address] Not Available 05:42:38 07/09/20 24 03/30/2021 audio gram No observ ation [...] and Address Organization Details Recorded Time Cough 30278697 Active 2014 Cough; Note: Date Diagnosed : 02/01/2015 3:26 PM (786.2) Not Available [facility] 4 03:12:19 Diffuse otitis externa 96706105 Active 2014 Diffuse otitis externa, left ear; Note: Date Diagnosed : 08/24/2015 11:23 AM (H60.312) Diffuse otitis externa, left ear; Note: Changed from 380.10 to H60.312 ( 10:54 AM) , Date Diagnosed : 07/23/2015 1:17 PM (380.10) ; Start Date : 5 Not Available [facility] 4 03:12:20 Allergic rhinitis 84110245 Active 2014 Allergic rhinitis: Due to other allergen; Note: Date Diagnosed : 03/03/2015 10:05 AM (477.8) Allergi c rhinitis, unspecifi ed; Note: Changed from 477.9 to J30.0 ( 5 11:21 AM) , Changed from J30.0 to J30.9 ( 5 11:21 AM) , Date Diagnosed : 02/01/2015 3:26 PM (477.9) ; Start Date : 5 Not Available [facility] 4 03:12:20 Mycosis 3350449 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; Note: Date Diagnosed : 12/19/2016 9:35 AM (B48.8) Not Available [facility] 4 03:12:18 Impacted cerumen in right ear 53322010874 42315 Active 2015 Impacted cerumen, right ear; Note: Date Diagnosed : 05/23/2016 9:17 AM (H61.21) Not Available [facility] 4 03:12:20 Sensorine ural hearing loss of bilateral ears 425233487 Active 2014 Sensorine ural HL, bilateral ; [...] ; Start Date : 5 Not Available [facility] 4 03:12:19 Polyp of nasal cavity and/or nasal sinus 912994503 Active 2014 Nasal polyp, unspecifi ed; Note: Changed from 471.9 to J33.9 ( 5 11:21 AM) , Date Diagnosed : 02/01/2015 3:26 PM (471.9) Not Available [facility] 4 03:12:18 Impacted cerumen 15963568 Active 2015 Impacted cerumen; Note: Date Diagnosed : 05/23/2016 9:14 AM (380.4) Not Available [facility] 4 03:12:19 Impacted cerumen of bilateral ears 81332871989 84641 Active 2015 Impacted cerumen, bilateral ; Note: Date Diagnosed : 05/08/2016 9:15 AM (H61.23) Not Available [facility] 4 03:12:19 Problem Notes None recorded. Procedures Surgical History Date Name Laterality Status Provider Name and Address Organization Details Recorded Time 4 Cerumen removal without microscope bilat completed DARBY CAMACHO PA-C [address] [facility],[place] [address], [place], [address], [facility] - [facility] 10/02/2024 09:13:30 4 Cerumen removal without microscope bilat completed KAEL LAN PA-C [address] [facility], [place], [address], [facility] 05/05/2024 13:15:12 Imaging Results Imaging Date [...] t Available prednison e 10 mg tablet 6 TABS DAILY X2 DAYS, 5 DAILY X2DAYS, 4 DAILY X2DAYS, 3 DAILY X2DAYS, 2 DAILY X2DAYS,T HEN 1 DAILY X2 active Not Available Not Available No t Available doxycycli ne hyclate 100 mg capsule TAKE 1 CAPSULE BY MOUTH TWICE A DAY FOR 7 DAYS active Not Available Not Available No t Available atorvasta tin 20 mg tablet TAKE 1 TABLET BY MOUTH EVERY DAY active Not Available Not Available No t Available atorvasta tin 10 mg tablet 2016 active Medicati on ID: [id number] D uration Value: 30 Brand Name: atorvast atin Sen d Method: E-Prescr ibed Sub s Allowed: subs OK Speci al Instruct ion: TAKE 1 TABLET BY ORAL ROUTE EVERY DAY Medi cationGe nericNam e: atorvast atin Not Available Not Available Not Available amlodipin e 2.5 mg tablet TAKE 1 TABLET BY MOUTH EVERY DAY active Not Available Not Available No t Available sildenafi l 100 mg tablet TAKE 1 TABLET BY MOUTH 1/2 HOUR BEFORE SEXUAL INTERCOU RSE active Not Available Not Available No t Available prednisol one acetate 1 % eye drops,heather pension INSTILL 1 DROP INTO LEFT EYE 4 TIMES A DAY FOR 1 WEEK active Not Available Not Available No t Available tamsulosi n 0.4 mg capsule TAKE 1 CAPSULE BY MOUTH EVERY 12 HOURS active Not Available Not Available No t Available doxycycli ne monohydra te 100 mg capsule TAKE 1 CAPSULE BY [...] inhalatio n 2014 active Medicati on ID: [id number] Du ration Value: 30 Brand Name: Advair Diskus S end Method: E-Prescr ibed Sub s Allowed: subs OK Speci al Instruct ion: INHALE 1 PUFF BY MOUTH 2 TIMES A DAY Medi cationGe nericNam e: Advair Diskus Not Available Not Available Not Available clotrimaz ole 1 % topical solution 2016 active Medicati on ID: [id number] P yamile d By Name: BLANE Duarte nd Name: nicolás arzate Satya d Method: E-Prescr ibed Sub s Allowed: subs OK Speci al Instruct ion: 4 drops to affected ear 2 times a day X 30 days Med icationG enericNa me: clotrima zole Not Available Not Available Not Available omeprazol e 20 mg capsule,d elayed release 2014 active Medicati on ID: [id number] Du ration Value: 30 Brand Name: omeprazo le Send Method: E-Prescr ibed Sub s Allowed: subs OK Dereck al Instruct ion: 1 CAP(S) ONCE A DAY ORALLY 30 DAY(S) Noelle Tomas Name: omeprazo le Not Available Not Available Not Available mont[address] [facility] 10 mg tablet TAKE 1 TABLET BY MOUTH EVERY DAY active Not Available Not Available No t Available ammonium lactate 12 % topical cream 2017 active Medicati on ID: [id number] D uration Value: 20 Brand Name: ammonium lactate Send Method: E-Prescr ibed Sub s Allowed: subs OK Medic ationGen ericName : ammonium lactate Not Available Not Available Not Available Iophen C-NR 10 mg-100 mg/5 mL oral liquid 02/26 completed Medicati on ID: [id number] Du ration Value: 12 Reason: () Brand [...] 24 hr 2016 active Medicati on ID: [id number] D uration Value: 90 Brand Name: metoprol ol succinat e Send Method: E-Prescr ibed Sub s Allowed: subs OK Speci al Instruct ion: TAKE HALF A TABLET BY ORAL ROUTE EVERY DAY Medi cationGe nericNam e: metoprol ol succinat e Not Available Not Available Not Available Aspir-81 mg tablet,de layed release 02/20 completed Medicati on ID: [id number] Re ason: () Brand Name: Ivan-81 Send Method: E-Prescr ibed Sub s Allowed: subs OK Medic ationGen ericName : Ivan-81 Not Available Not Available Not Available ibuprofen [...] spray,heather pension 2014 active Medicati on ID: [id number] Du ration Value: 30 Brand Name: fluticas one Send Method: E-Prescr ibed Sub s Allowed: subs OK Speci al Instruct ion: USE 1 SPRAY TWICE A DAY EACH NOSTRIL Medicati onGeneri cName: fluticas one Not Available Not Available Not Available clotrimaz ole 1 % topical cream 12/19 completed Medicati on ID: 47132 Du ration Value: 14 Brand Name: clotrima zole Sen d Method: E-Prescr ibed Sub s Allowed: subs OK Medic atGabrielle ericName : clotrima zole Not Available Not [...] Not Available Not Available No t Available azithromy dunia 500 mg tablet TAKE 1 TABLET BY MOUTH EVERY DAY FOR 5 DAYS active Not Available Not Available No t Available Crestor 20 mg tablet 07/23 completed Medicati on ID: [id number] Du ration Value: 30 Reason: () Brand [...] aerosol inhaler 02/26 completed Medicati on ID: 56696 Du ration Value: 30 Reason: () Brand [...] inhalatio n 2017 active Medicati on ID: [id number] D uration Value: 30 Brand Name: Breo [...] Updated DateTime 10/02/2024 180.34 cm 24.7 kg/m2 51206.[address] - [facility] 10/02/2024 09:07:24 Social History None recorded. Functional Status None recorded. Mental Status None recorded. Family History Nothing Reported. Medical History No medical history recorded. Past Encounters Encounter ID Performer Location Encounter Start Date Encounter Closed Date Diagnosis/Indication Diagnosis SNOMED-CT Code Diagnosis ICD10 Code Diagnosis Note [id number] LISSET MARES MD [facility] [address] [address] 05/05/2024 13:00:46 05/05/2024 13:20:35 Impacted cerumen of bilateral ears [id number] 329761 H61.23 Recurrent Cerumen Impactions : Ears were meticulous ly cleaned bilaterall y today with a curette and suction. The patient tolerated this well and will follow up for repeat debridemen t per routine. Sensorineu ral hearing loss of bilateral ears 281883306 H90.3 [id number] Krystal SULLIVAN [facility] [place] [address] [place] [id number] 09/29/2024 13:54:59 10/03/2024 07:22:43 Sensorineural hearing loss of bilateral ears 878883958 H90.3 [id number] LEW TAPIA MD [facility] [address] [address] 10/02/2024 08:54:12 10/02/2024 09:21:31 Impacted cerumen of bilateral ears 3151015642 837304 H61.23 [id number] Krystal SULLIVAN [facility] [place] [address] [place] [id number] 11/13/2024 13:53:46 11/14/2024 11:54:27 Sensorineural hearing loss of bilateral ears 845470268 H90.3 Health Concerns Section Related Observation LastModified by Organization Detai ls LastModified Time None Recorded Concern Status LastModified by Organization Details LastModified Time None Recorded Advance Directives Directive None Recorded Payers Encounter Date Sequence Insurance Name Policy Number Policy Montes Covered Member ID Montes Member ID Guarantor Name 05/05/2024 1 [place] [employer] Manuel So [id number] Manuel So 05/05/2024 2 [place] [id number] Manuel So [id number] Manuel Williamsonow 09/29/2024 1 [place] [employer] Manuel Williamsonow [id number] Manuel Seo Lepow 09/29/2024 2 [place] [id number] Manuel Williamsonow [id number] Manuel Seo Lepow 10/02/2024 1 [place] [employer] Manuel So [id number] Maneul Seo Lepow 10/02/2024 2 [place] [id number] Manuel So [id number] Manuel Williamsonow 11/13/2024 1 [place] [employer] [employer] Manuel So [id number] Manuel Seo Lepow 11/13/2024 2 [place] [id number] Manuel So [id number] Manuel So Notes Date Note Type Note Provider Name and Address Organization Details Recorded Time 05/05/2024 text/html 78-year-old male presents for evaluation of the ears. He reports his hearing has not changed. His hearing aids fit well and provide good benefit. He denies otalgia and otorrhea. LISSET MARES MD [address] [place] [address], [phone], [facility] 05/06/2024 08:45:02 09/29/2024 text/html Patient returns because a wax filter had fallen off the tip of his earmold into his canal. Krystal SULLIVAN [address] [place] [address], [phone], [facility] - [facility] 09/29/2024 14:22:17 10/02/2024 text/html 79-year-old male presents for cerumen removal. No concerns today. LEW TAPIA MD [address] [place] [address], [phone], [place] - [facility] 10/02/2024 21:24:42 11/13/2024 text/html Patient returned for an orientation fitting of {{hearing devices* a hearing device in the right ear a hearing device in the left ear}}. They are {{a first time user of amplification a longstanding user of amplification*}}. They reported significant difficulty communicating and understanding speech and {{hearing devices were* the hearing device was}} ordered through a 3rd constitution party vendor to be fitted at our office. The patient had selected this make and model for their lifestyle and audiological needs. AALIYAH CALDERÓN, AuD [address] [facility],[place] [address], [place], [address], [facility] - [facility] 11/14/2024 13:03:12
--- OUTSIDE RECORDS SUMMARY | 2024-12-11 15:57 | XMS_ITS | Continuity of Care Document ---
Author Organization [place] - [facility] Address [address] [address] Care Team Providers Care Champagne Maker Name Role Phone [email or web address] Primary Care Provider Assessment Encounter Date Assessment Date Assessment LastModified by Organization Details LastModified Time 11/13/2024 11/13/2024 The devices were programmed wirelessly using the drop wire hanger's software in [facility]. We reviewed using real-ear verification [...] through phone or email at their convenience. [email or web address] Not available 11/13/2024 07:50:20 Plan of Treatment [...] and Address Organization Details Recorded Time Cough [id number] Active 2014 Cough; Note: Date Diagnosed : 02/01/2015 3:26 PM (786.2) Not Available [facility] 4 03:12:19 Diffuse otitis externa 72549383 Active 2014 Diffuse otitis externa, left ear; Note: Date Diagnosed : 08/24/2015 11:23 AM (H60.312) Diffuse otitis externa, left ear; Note: Changed from 380.10 to H60.312 ( 5 10:54 AM) , Date Diagnosed : 07/23/2015 1:17 PM (380.10) ; Start Date : 5 Not Available [facility] 4 03:12:20 Allergic rhinitis 97968069 Active 2014 Allergic rhinitis: Due to other allergen; Note: Date Diagnosed : 03/03/2015 10:05 AM (477.8) Allergi c rhinitis, unspecifi ed; Note: Changed from 477.9 to J30.0 ( 5 11:21 AM) , Changed from J30.0 to J30.9 ( 11:21 AM) , Date Diagnosed : 02/01/2015 3:26 PM (477.9) ; Start Date : 5 Not Available [facility] 4 03:12:20 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; Note: Date Diagnosed : 12/19/2016 9:35 AM (B48.8) Not Available [facility] 4 03:12:18 Impacted cerumen in right ear 71848425823 03800 Active 2015 Impacted cerumen, right ear; Note: Date Diagnosed : 05/23/2016 9:17 AM (H61.21) Not Available [facility] 4 03:12:20 Sensorine ural hearing loss of bilateral ears 069422994 Active 2014 Sensorine ural HL, bilateral ; [...] ; Start Date : 5 Not Available [facility] 4 03:12:19 Polyp of nasal cavity and/or nasal sinus 363633104 Active 2014 Nasal polyp, unspecifi ed; Note: Changed from 471.9 to J33.9 ( 5 11:21 AM) , Date Diagnosed : 02/01/2015 3:26 PM (471.9) Not Available [facility] 4 03:12:18 Impacted cerumen 12588239 Active 2015 Impacted cerumen; Note: Date Diagnosed : 05/23/2016 9:14 AM (380.4) Not Available [facility] 4 03:12:19 Impacted cerumen of bilateral ears 89494435549 44559 Active 2015 Impacted cerumen, bilateral ; Note: Date Diagnosed : 05/08/2016 9:15 AM (H61.23) Not Available [facility] 4 03:12:19 Problem Notes None recorded. Procedures Surgical History Date Name Laterality Status Provider Name and Address Organization Details Recorded Time 4 Cerumen removal without microscope bilat completed DARBY CAMACHO PA-C [address] [place] [address], [phone], [place] - [facility] 10/02/2024 09:13:30 Cerumen removal without microscope bilat completed KAEL LAN PA-C 100 [facility] [address], [place], [address], [place] - [facility] 05/05/2024 13:15:12 Imaging Results None recorded. [...] mg tablet 2016 active Medicati on ID: [id number] D uration Value: 30 Brand Name: atorvast [...] inhalatio n 2014 active Medicati on ID: [id number] Du ration Value: 30 Brand Name: Advair Diskus S end Method: E-Prescr ibed Sub s Allowed: subs OK Speci al Instruct ion: INHALE 1 PUFF BY MOUTH 2 TIMES A DAY Medi cationGe nericNam e: Advair Diskus Not Available Not Available Not Available clotrimaz ole 1 % topical solution 2016 active Medicati on ID: [id number] P rescribe d By Name: BLANE Duarte nd Name: clotrimichelle Hernadez d Method: E-Prescr ibed Sub s Allowed: subs OK Speci al Instruct ion: 4 drops to affected ear 2 times a day X 30 days Med icationG enericNa me: clotrima zole Not Available Not Available Not Available omeprazol e 20 mg capsule,d elayed release 2014 active Medicati on ID: [id number] Du ration Value: 30 Brand Name: omeprazo [...] topical cream 2017 active Medicati on ID: [id number] D uration Value: 20 Brand Name: ammonium lactate Send Method: E-Prescr ibed Sub s Allowed: subs OK Medic ationGen ericName : ammonium lactate Not Available Not Available Not Available Iophen C-NR 10 mg-100 mg/5 mL oral liquid 02/26 completed Medicati on ID: [id number] Du ration Value: 12 Reason: () Brand Name: Iophen C-NR Sen d Method: E-Prescr ibed Sub s Allowed: subs OK Speci al Instruct ion: TAKE 1 TEASPOON (5 ML) BY MOUTH AT BEDTIME NEEDED FOR COUGH Me dication GenericN lise: Juan C-NR Not Available Not Available Not Available metoprolo l succinate ER 25 mg tablet,ex tended release 24 hr 2016 active Medicati on ID: [id number] D uration Value: 90 Brand Name: metoprol ol succinat e Send Method: E-Prescr ibed Sub s Allowed: subs OK Speci al Instruct ion: TAKE HALF A TABLET BY ORAL ROUTE EVERY DAY Medi cationGe nericNam e: metoprol ol succinat e Not Available Not Available Not Available Aspir-81 mg tablet,de layed release 02/20 completed Medicati on ID: 64408 Re ason: () Brand Name: Aspir-81 Send [...] ne propionat e 50 mcg/actua tion nasal spray,[facility] 2014 active Medicati on ID: [id number] Du ration Value: 30 Brand Name: fluticas one Send Method: E-Prescr ibed Sub s Allowed: subs OK Speci al Instruct ion: USE 1 SPRAY TWICE A DAY EACH NOSTRIL Medicati onGeneri cName: fluticas one Not Available Not Available Not Available clotrimaz ole 1 % topical cream 12/19 completed Medicati on ID: [id number] Du ration Value: 14 Brand Name: clotrima [...] mg tablet 07/23 completed Medicati on ID: 29776 Du ration Value: 30 Reason: () Brand [...] aerosol inhaler 02/26 completed Medicati on ID: 96143 Du ration Value: 30 Reason: () Brand [...] inhalatio n 2017 active Medicati on ID: [id number] D uration Value: 30 Brand Name: Karis Feng Send Method: E-Prescr ibed Sub s Allowed: subs OK Medic Julia ericName : Karis Feng Not Available Not Available Not Available fluticaso [...] SNOMED-CT Code Diagnosis ICD10 Code Diagnosis Note [id number] Krystal SULLIVAN [facility] - [facility] 100 [facility] 100 [place] [address] 11/13/2024 13:53:46 11/14/2024 11:54:27 Sensorineural hearing loss of bilateral ears 979778931 H90.3 Health Concerns Section Related Observation LastModified by Organization Detai ls LastModified Time None Recorded Concern Status LastModified by Organization Details LastModified Time None Recorded Payers Encounter Date Sequence Insurance Name Policy Number Policy Montes Covered Member ID Montes Member ID Guarantor Name 11/13/2024 1 [place] [employer] Manuel So [id number] Manuel So 11/13/2024 2 [place] [id number] Manuel So [id number] Manuel So Notes Date Note Type [...] their lifestyle and audiological needs. AALIYAH CALDERÓN, [place] [address], [place], [address], [facility] - [facility] 11/14/2024 13:03:12
--- OUTSIDE RECORDS SUMMARY | 2024-12-11 15:57 | XMS_ITS | Data Portability ---
Author Organization [facility] - [facility], [facility] Address [address] [place] [address] Care Team Providers Care Burrer Hand Name Role Phone RENAN FLOREZ Referring Provider RENAN FLOREZ Primary Care Provider Assessment Encounter [...] as appropriate. [email or web address] Not available 09/03/2024 15:33:55 09/05/2024 09/05/2024 A: Pt denied pain with therex performed. Pt presents with normal gait mechanics on level ground and on stairs without pain. Pt continues to be limited in walking distance, reporting pain after less then 2 blocks. Pt has not yet been able to return to sport. Pt will continue to benefit from PT 1-2x/ week for 3-4 weeks. P: Continue per plan of care. Progress strengthening as appropriate. Not available 09/05/2024 15:55:33 09/09/2024 09/09/2024 A: Pt denied pain with therex performed. Pt has no hip or knee pain coming in today and will try golfing. P: Continue per plan of care. Progress strengthening as appropriate. [email or web address] Not available 09/09/2024 12:40:48 09/12/2024 09/12/2024 A: Pt denied pain with therex performed. Able to complete full program with progressions. Fatigued appropriately. Issued updated HEP. Pt to f/u in 2-3 weeks as needed. P: F/u in 2-3 weeks jarret. [email or web address] Not available 09/12/2024 15:34:55 11/20/2024 11/20/2024 Patient seen under general supervision [...] up with one of our hand surgeons. [employer] speech recognition service tech software was used to create portions of this document. An attempt at proofreading has been made to minimize errors. Please call for corrections. [email or web address] Not available 11/20/2024 13:57:39 Plan of Treatment Reminders Order Date Submit Date Provider Last Modified By Organization Details Last Modified Time Details Appointments None recorded. Lab None recorded. Referral None recorded. Procedures None recorded. Surgeries None recorded. Imaging XR, cervical spine, 2 or 3 view - UC 1- 2V c-spine 2024 025 [facility], [address], [place], [address], 5 12:43:10 Medication Orders prednison e 10 mg tablets in a dose pack 2024 025 [email or web address] [id number], [address] [place], [address], 14:17:07 Patient TargetsNo targets recorded. Patient InstructionsNo instructions recorded. Reason for Referral None Reported. Results Created Date Observation Date Name Description Value Unit Range Abnormal Flag Note LastModifiedBy Organization Detail LastModifiedTime 08/20/2008/20/2024 XR, knee, 4 or more view http:/ [email or web address] ?Encry pted=s hAaTro YD8dLq bEUv6g %2BXZw aYqtaq 0bqfl% 2Fg9IQ a4ajBk vP9nXo QUaueC m3YtLR FvZlgJ JJ8mAn HZtai3 9f5584 AC0Kqa 3yDVaq vKiQtr MwF INTERFACE [facility] [address], [place], [address], 08/20/2024 13:55:42 08/20/20 24 08/20/2024 XR, knee, 4 or more view http:/ [email or web address] ?Encry pted=s hAKayleno YD8dLq bEUv6g %2BXZw aYqtaq 0bqfl% 2Fg9IQ a4ajBk vP9nXo QUaueC m3YtLR FvZlgJ JJ8mAn HZtai3 3x8400 AC0Kqa 3yDVaq vKiQtr MwF INTERFACE [facility] [address], [place], [address], 08/20/2024 13:55:44 Result Notes None recorded. Problems Name Problem SNOMED Code Status Onset Date Resolution Date Notes Provider Name and Address Organization Details Recorded Time No complaints 316303139 Active Status : 'I'; Not Available [facility] 4 09:25:30 Trigger finger of left hand [id number] 9107 Active 2023 Rosendo Augustin PA-C [address], [place], [address] , [facility] 4 08:25:40 Problem Notes None recorded. Procedures Surgical History Date Name Laterality Status Provider Name and Address Organization Details Recorded Time 4 33285 Therapeutic Exercise (1:1) completed Tiffanie Hernandez DPT [address] [facility] [place], [place], [address], [facility] 09/12/2024 14:02:35 4 66362 Therapeutic Exercise (1:1) completed Nilda Story PTA [address], [place], [address], [facility] 09/08/2024 18:51:43 4 75240 Therapeutic Exercise (1:1) completed Tiffanie Hernandez DPT [address], [place], [address], [facility] 09/05/2024 15:59:02 4 86959 Therapeutic Exercise (1:1) completed Nilda Story, BATTERBOARD SETTER [address], [place], [address], [facility] 09/03/2024 15:33:11 4 56483: Manual therapy completed Nilda Story, BATTERBOARD SETTER [address], [place], [address], [facility] 09/03/2024 15:25:26 93801 Therapeutic Exercise (1:1) completed Nilda Story, BATTERBOARD SETTER [address], [place], [address], [facility] 08/27/2024 14:45:20 33491: Manual therapy completed Nilda Story, BATTERBOARD SETTER [address], [place], [address], [facility] 08/27/2024 14:45:20 87082 Therapeutic Exercise (1:1) completed Nilda Story, BATTERBOARD SETTER [address], [place], [address], [facility] 08/21/2024 15:56:42 4 95657: Manual therapy completed Nilda Story, BATTERBOARD SETTER [address], [place], [address], [facility] 08/21/2024 15:56:42 4 Hip Kenalog 1cc Injection, L/R completed Akil Dunham PA-C [address], [place], [address], [facility] 08/20/2024 15:37:03 34956 Therapeutic Exercise (1:1) completed Nilda Story, BATTERBOARD SETTER [address], [place], [address], [facility] 08/18/2024 16:47:57 4 08715: Manual therapy completed Nilda Story, BATTERBOARD SETTER [address], [place], [address], [facility] 08/18/2024 16:47:57 4 82669 Therapeutic Exercise (1:1) completed Nilda Story, BATTERBOARD SETTER [address], [place], [address], [facility] 08/15/2024 15:59:22 4 63984: Manual therapy completed Nilda Story, BATTERBOARD SETTER [address], [place], [address], [facility] 08/15/2024 15:59:27 4 30771 Therapeutic Exercise (1:1) completed Nilda Story, BATTERBOARD SETTER [address], [place], [address], [facility] 08/12/2024 16:04:30 4 17543: Manual therapy completed Nilda Story, BATTERBOARD SETTER [address], [place], [address], [facility] 08/12/2024 16:04:35 4 82408 Therapeutic Exercise (1:1) completed Nilda Story, BATTERBOARD SETTER [address], [place], [address], [facility] 08/07/2024 12:22:14 4 08613: Manual therapy completed Nilda Story, BATTERBOARD SETTER [address], [place], [address], [facility] 08/07/2024 12:22:14 4 46039 Therapeutic Exercise (1:1) completed Nilda Story, BATTERBOARD SETTER [address], [place], [address], [facility] 08/05/2024 16:43:31 4 86747: Manual therapy completed Nilda Story, BATTERBOARD SETTER [address], [place], [address], [facility] 08/05/2024 16:43:21 4 44049 Therapeutic Exercise (1:1) completed Tiffanie Hernandez DPT [address], [place], [address], [facility] 07/31/2024 16:54:17 4 98283: Low complexity PT Eval completed Tiffanie Hernandez DPT [address], [place], [address], [facility] 07/31/2024 16:56:02 4 G8419 BMI Outside Normal Parameters, F/U not Documented completed Tiffanie Hernandez DPT [address], [place], [address], [facility] 07/31/2024 16:22:55 4 G8427 Current Medication Documented completed Tiffanie Hernandez DPT [address], [place], [address], [facility] 07/31/2024 16:22:59 4 Trigger Finger Kenalog Injection completed Maxim Michael PA-C [address] [facility] [place], [place], [address], [facility] 06/24/2024 13:40:50 4 JZTrigger Finger Injection completed Rosendo Augustin PA-C [address], [place], [address], [facility] 02/15/2024 08:26:00 Imaging Results Imaging Date Name Status LastModified by Organiz ation Details LastModified Time 08/20/2024 XR, knee, 4 or more view completed INTERFACE [facility] [address] [facility], [place], [address], 08/20/2024 13:55:42 08/20/2024 XR, knee, 4 or more view completed INTERFACE [facility] [address], [place], [address], 08/20/2024 13:55:44 Procedure Notes None recorded. Medical Equipment None Reported. Allergies Allergen ID Allergen Name Allergen Category Reaction Reaction Severity Criticality Documentation Date Start Date Code Code System Note Provider Name and Address Organization Details Recorded Time 27125 mold extract environme nt Not available Not available Not available 01/21/20242015 82579 8 RxNorm Not Available [facility] 12:32:15 Medications Name Sig Start Date [...] in a dose pack as directed 6 TWk7lctn, 5 NLh6dugd, 4 PO x2days, 3 NCv0vwwl, 2 HNx8dovo, 1 COq5kxnx 2024 active Not Available Not Available Not [...] Available Not Available No t Available Laxative (bisacodyl) 5 mg tablet,sana yed release 4 TABLETS ORALLY DIRECTED X1 DAY 08/20 completed Not Available Not Available Not Available azithromyci n 500 mg tablet active Not Available Not Available Not Available Gas [...] Updated DateTime 11/20/2024 180.34 cm 25.2 kg/m2 90765.22 g JARED CHOI [place] [facility] 11/20/2024 13:10:41 Social History None recorded. Functional Status None recorded. Mental Status None recorded. Family History Nothing Reported. Medical History No medical history recorded. 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 [id number] 57890 M76.32 [id number] [facility] [address] [place] [address] 08/05/2024 15:27:14 08/05/2024 17:01:54 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 9535720945 83633 M76.32 [id number] [facility] [address] [place] [address] 08/08/2024 13:52:36 08/08/2024 15:59:21 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 1997724008 76321 M76.32 [id number] Tiffanie Hernandze DPT [facility] [address] [place] [address] 08/12/2024 13:56:41 2024 08:59:38 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 4551188217 40985 M76.32 [id number] Tiffanie Hernandez DPT [facility] [address] [place] [address] 08/15/2024 13:52:14 08/15/2024 16:01:37 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 0512530498 92015 M76.32 [id number] Tiffanie Hernandez DPT [facility] [address] [place] [address] 08/19/2024 13:49:54 08/19/2024 16:51:33 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 3268547774 16562 M76.32 [id number] Akil Dunham PA-C [facility] [address] [place] [address] 08/20/2024 13:32:05 08/20/2024 15:39:14 Pain of left knee joint 4194422644 03791 M25.562 Trochanter ic bursitis of left hip 2434163132 55274 M70.62 [id number] Tiffanie Hernandez DPT [facility] [address] [place] [address] 08/25/2024 15:51:23 08/25/2024 18:36:45 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 5794527795 06092 M76.32 [id number] Tiffanie Hernandez DPT [facility] [address] [place] [address] 08/28/2024 13:54:30 08/28/2024 15:10:23 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 8077006191 99735 M76.32 [id number] Tiffanie Hernandez DPT [facility] [address] [place] [address] 09/03/2024 12:31:08 09/03/2024 15:34:21 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 3699855630 58870 M76.32 [id number] Tiffanie Hernandez, ROYCET [facility] [address] [place] [address] 09/05/2024 13:54:20 09/08/2024 08:39:58 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 9961344363 54302 M76.32 [id number] Dallin Vogt, PT [facility] [address] [place] [address] 09/09/2024 10:17:54 09/09/2024 15:22:31 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 4672978802 54013 M76.32 [id number] ROYCE IrizarryT [facility] [address] [place] [address] 09/12/2024 14:00:10 09/12/2024 15:39:32 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 6138867111 33364 M76.32 [id number] [facility] [place] [address] [place] [address] 11/20/2024 12:46:02 12/05/2024 12:43:10 Weakness of right hand 4130212094 6848556 R29.898 Health Concerns Section Related Observation LastModified by Organization Detai ls LastModified Time None Recorded Concern Status LastModified by Organization Details LastModified Time None Recorded Advance Directives Directive None Recorded Payers Encounter Date Sequence Insurance Name Policy Number Policy Montes Covered Member ID Montes Member ID Guarantor Name 09/03/2024 2 [place] [id number] Manuel So [id number] Manuel So 09/03/2024 1 [place] [employer] [place] Manuel So [id number] Manuel So 09/05/2024 2 [place] [id number] Manuel So [id number] Manuel So 09/05/2024 1 [place] [place] Manuel So [id number] Manuel So 09/09/2024 2 [place] [id number] Manuel So [id number] Manuel So 09/09/2024 1 [place] [employer] Manuel So [id number] Manuel So 09/12/2024 2 [place] [id number] Manuel So [id number] Manuel So 09/12/2024 1 [place] [facility] [employer] Manuel So [id number] Manuel So 11/20/2024 2 [place] [id number] Manuel So [id number] Manuel So 11/20/2024 1 [place] [facility] [employer] Manuel So [id number] Manuel So Notes Date Note Type Note Provider Name and Address Organization Details Recorded Time 09/03/2024 text/html Pt reports 0/10 hip pain coming in. When I do my exercises at home I get some soreness in the side of my hip. Maybe I'm doing something wrong? Pt bought a stretch out strap for home. Nilda Story, BATTERBOARD SETTER [address], [place], [address], [facility] 09/03/2024 15:34:14 09/05/2024 text/html Pt reports 0/10 hip pain coming in. Reporting some pain in R LB after previous visit, prone positioning held. Tiffanie Hernandez, DPT [address], [place], [address], [facility] 09/05/2024 16:00:49 09/09/2024 text/html Pt reports 0/10 hip pain coming in, I feel good. I'm going golfing this afternoon and we'll see how I do. Nilda Story, BATTERBOARD SETTER [address], [place], [address], [facility] 09/09/2024 12:41:15 09/12/2024 text/html Pt denies pain coming into therapy. Able to golf without pain. Tiffanie Hernandez, DPT [address], [place], [address], [facility] 09/12/2024 15:39:28
--- OUTSIDE RECORDS SUMMARY | 2024-12-11 15:57 | XMS_ITS | Continuity of Care Document ---
Author Organization [place] - [facility], [facility] [place] Address [address] [place] [address] Care Team Providers Care Line Welder Name Role Phone RENAN FLOREZ Referring Provider [...] maneuver. X-rays ordered, obtained and reviewed at [facility] 3 views of the right [...] up with one of our hand surgeons. [employer] speech recognition real estate administrative assistant software was used to create portions of [...] view - 1- 2V c-spine 2024 025 jannet Munoz Office, [address] [facility] [address], [facility] [address], [place], [address], 5 12:43:10 Medication Orders prednison e 10 mg tablets in a dose pack 2024 025 [email or web address] [id number], [address] [facility], [place], [address], 5 14:17:07 Patient TargetsNo targets recorded. Patient InstructionsNo instructions recorded. Reason for Referral None Reported. Problems Name Problem SNOMED Code Status Onset Date Resolution Date Notes Provider Name and Address Organization Details Recorded Time No complaints 129287228 Active Status : 'I'; Not Available [facility] 09:25:30 Trigger finger of left hand [id number] 9107 Active 2023 Rosendo Augustin PA-C [address], [place], [address] , [facility] 08:25:40 Problem Notes None recorded. Procedures Surgical History Date Name Laterality Status Provider Name and Address Organization Details Recorded Time 66859 Therapeutic Exercise (1:1) completed Tiffanie Hernandez DPT [address], [place], [address], [facility] 09/12/2024 14:02:35 68265 Therapeutic Exercise (1:1) completed Nilda Story PTA [address], [place], [address], [facility] 09/08/2024 18:51:43 86398 Therapeutic Exercise (1:1) completed Tiffanie Hernandez DPT [address], [place], [address], [facility] 09/05/2024 15:59:02 96998 Therapeutic Exercise (1:1) completed Nilda Story PTA [address], [place], [address], [facility] 09/03/2024 15:33:11 4 89479: Manual therapy completed Nilda Story PTA [address], [place], [address], [facility] 09/03/2024 15:25:26 49746 Therapeutic Exercise (1:1) completed Nilda Story PTA [address], [place], [address], [facility] 08/27/2024 14:45:20 4 66355: Manual therapy completed Nilda Story PTA [address], [place], [address], [facility] 08/27/2024 14:45:20 4 96679 Therapeutic Exercise (1:1) completed Nilda Story, PRODUCTION PAINTER [address], [place], [address], [facility] 08/21/2024 15:56:42 4 60302: Manual therapy completed Nilda Story, PRODUCTION PAINTER [address], [place], [address], [facility] 08/21/2024 15:56:42 4 Hip Kenalog 1cc Injection, L/R completed Akil Dunham PA-C [address] [facility], [place], [address], [facility] 08/20/2024 15:37:03 4 48935 Therapeutic Exercise (1:1) completed Nilda Story, PRODUCTION PAINTER [address], [place], [address], [facility] 08/18/2024 16:47:57 4 71751: Manual therapy completed Nilda Story, PRODUCTION PAINTER [address], [place], [address], [facility] 08/18/2024 16:47:57 4 81568 Therapeutic Exercise (1:1) completed Nilda Story, PRODUCTION PAINTER [address], [place], [address], [facility] 08/15/2024 15:59:22 4 81536: Manual therapy completed Nilda Story, PRODUCTION PAINTER [address], [place], [address], [facility] 08/15/2024 15:59:27 4 59270 Therapeutic Exercise (1:1) completed Nilda Story, PRODUCTION PAINTER [address], [place], [address], [facility] 08/12/2024 16:04:30 4 25977: Manual therapy completed Nilda Story, PRODUCTION PAINTER [address], [place], [address], [facility] 08/12/2024 16:04:35 4 65697 Therapeutic Exercise (1:1) completed Nilda Story, PRODUCTION PAINTER [address], [place], [address], [facility] 08/07/2024 12:22:14 4 77163: Manual therapy completed Nilda Story PRODUCTION PAINTER [address], [place], [address], [facility] 08/07/2024 12:22:14 4 90408 Therapeutic Exercise (1:1) completed Nilda Story, PRODUCTION PAINTER [address] [facility], [place], [address], [facility] 08/05/2024 16:43:31 4 50708: Manual therapy completed Nilda Story PRODUCTION PAINTER [address] [facility], [place], [address], [facility] 08/05/2024 16:43:21 4 19347 Therapeutic Exercise (1:1) completed Tiffanie Hernandez DPT [address], [place], [address], [facility] 07/31/2024 16:54:17 4 62906: Low complexity PT Eval completed Tiffanie Hernandez DPT [address], [place], [address], [facility] 07/31/2024 16:56:02 4 G8419 BMI Outside Normal Parameters, F/U not Documented completed Tiffanie Hernandez DPT [address], [place], [address], [facility] 07/31/2024 16:22:55 4 G8427 Current Medication Documented completed Tiffanie Hernandez DPT [address], [place], [address], [facility] 07/31/2024 16:22:59 4 Trigger Finger Kenalog Injection completed Maxim Michael PA-C [address], [place], [address], [facility] 06/24/2024 13:40:50 4 JZTrigger Finger Injection completed Rosendo Augustin PA-C [address], [place], [address], [facility] 02/15/2024 08:26:00 Imaging Results None recorded. Procedure Notes None recorded. Medical Equipment None Reported. Allergies Allergen ID Allergen Name Allergen Category Reaction Reaction Severity Criticality Documentation Date Start Date Code Code System Note Provider Name and Address Organization Details Recorded Time 78735 mold extract environme nt Not available Not available Not available 01/21/20242015 52933 8 RxNorm Not Available [facility] 12:32:15 Medications Name Sig Start Date Stop [...] in a dose pack as directed 6 TEo4upup, 5 RSq6nnvh, 4 PO x2days, 3 JBp7kwdu, 2 GXu2adaw, 1 OMt3efvc 2024 active Not Available Not Available Not [...] Updated DateTime 11/20/2024 180.34 cm 25.2 kg/m2 98256.22 g JARED CHOI [place] - [facility] 11/20/2024 13:10:41 Social History None recorded. Functional Status None recorded. Mental Status None recorded. Family History Nothing Reported. Medical History No medical history recorded. Past Encounters Encounter ID Performer Location Encounter Start Date Encounter Closed Date Diagnosis/Indication Diagnosis SNOMED-CT Code Diagnosis ICD10 Code Diagnosis Note [id number] Sandro Sánchez PA-C [facility] [place] [address] [place] [address] 11/20/2024 12:46:02 12/05/2024 12:43:10 Weakness of right hand [id number] R29.898 Health Concerns Section Related Observation LastModified by Organization Detai ls LastModified Time None Recorded Concern Status LastModified by Organization Details LastModified Time None Recorded Payers Encounter Date Sequence Insurance Name Policy Number Policy Montes Covered Member ID Montes Member ID Guarantor Name 11/20/2024 2 [place] [id number] Manuel So [id number] Manuel So 11/20/2024 1 [place] [facility] Manuel So [id number] Manuel So
== END 2024-12-11 13:31 | disposition home or self-care (01) ==
LOC: HO.CT 13:30
PROVIDERS: PCP Internal Medicine; Visit Provider Hospitalist
DX: J18.9 Pneumonia, unspecified organism (principal)
CPT/HCPCS: 71250

== ENCOUNTER → 2024-12-11 13:33 | Outpatient (BNV) | payer MEDICARE, SELFPAY | PROVIDERS: PCP Internal Medicine; Visit Provider Specialist | DX: J18.9 Pneumonia, unspecified organism (principal) | CPT/HCPCS: 71250 ==

== ENCOUNTER 2025-03-10 08:29 | Outpatient (AMB) | payer MEDICARE, SELFPAY ==
--- NOTE | 2025-03-10 08:31 | A.OFFVIS_ITS ---
Vital Signs 03/10/25 08:32 Height 5 ft 11 in Weight 188 lb 7.924 oz BMI 26.3 BP 132/74 Blood Pressure Location Rt brachial Position Sitting Pulse 63 Pulse Source Pulse Oximeter Pulse Oximetry (%) 96 Oxygen Delivery Method Room Air Intake Visit Reasons: Pulmonary Nodule Allergies No Known Allergies Allergy (Verified 03/10/25 08:36) HPI Comments Details: The patient is a 79 year old gentleman known asthma in addition to pulmonary nodules. He was initially and Advair, but, then due to insurance reasons he was social her to Breo. The Breo has been affecting beneficial though is very expensive for him. He has not had to use his rescue inhaler. He has not had any exacerbations of the breathing. Overall he is doing well exercising regularly. He does complains of some dyspnea on exertion at times. Mild in severity. Does get better with rest. He also has had CT scans assessing his pulmonary nodules. His last CT scan was done over April [address] [facility] demonstrating stable pulmonary nodules when compared to 2017. Based on the stable nodules he does not require any additional serial CAT scans at this time. We can consider CT scans as needed. Otherwise the patient is without any other complaints. 10/04/2020. The patient is here for pulmonary follow-up visit. Overall he is doing well. Back in April he did have an elevated PSA and did have a diagnosis of lung cancer made by biopsy. He did undergo a prostatectomy in [place]. He did not require radiation or chemotherapy or hormonal therapy. He has been recovering well. In the meantime he has known pulmonary nodules. He did have a recent CT scan of the chest that we personally reviewed from [facility]. Demonstrated the pulmonary nodules have been about the same. Although, he does have this scar like nodular density which is irregular in nature and that is located in the right lower lobe. This is suggestive of rounded atelec tasis versus and nodular density. In view of his prostate cancer these nodules have to monitor closely. Therefore will continue with the yearly CAT scans at this time. If the patient develops any worsening symptoms or any concerning symptoms then an earlier evaluation will be warranted done. He continues using his respiratory medications. He is wondering about a cough that he is developing. It is usually productive in usually in the mornings worse. Moderate severity. He has been responding well to the Symbicort. We did talk about considering a long-acting muscarinic antagonist. The patient is reluctant to use it at this time. Will go ahead and treated for an upper airway cough syndrome. 03/22/2022 the patient is here for a pulmonary follow-up visit. Overall he is feeling well. He continues uses Symbicort 2 puffs twice a day. He does still get some shortness of breath. He does need a rescue inhaler specially well playing softball or any other activities where he could pretreated prior to the exercise. The patient does complain about the cause of the Symbicort. I will see the complain a more reasonable inhaler for him to use for maintenance therapy. The patient also had a recent CT scan of the chest that was personally by me and also his CT scan prior to that. He appears to have stable pulmonary nodules although he appears to have multiple nodules largest 1 in the left lower lobe which appears to be unchanged from previous and also has other micro nodules bilaterally. The micro nodules were not documented in his previous CT scan. Therefore, will go ahead and repeat his CT scan in a year's time. 05/02/2023 the patient is here for a pulmonary follow-up visit. Overall the patient has been doing well. Continues to exercise regularly. Continues uses respiratory therapy with good effect. I did review his CT scan of chest and does not appear to have any changes in the pulmonary nodules. There appeared to be stable and do not need serial CT scans. His pulmonary function studies are reassuring still with asthma. No evidence of any fixed obstruction. The only issue that he has been having is the cause of the inhalers. We switched him over to Advair HFA is still very expensive. Therefore I did provide him with good Rx card and a prescription for AirDuo which she can use and hopefully this way he can get it for cheaper rahman and not affect his donut hole. I am hopeful that this works for him. He also has a rescue inhaler that he has not required. Otherwise patient follow-up in a year if he has any issues he is to call the office for an earlier appointment. 05/06/2024 the patient is here for a pulmonary follow-up visit. Overall he is doing okay. Does complaint of increasing dyspnea on exertion. Feels like he gets more winded with typical activities he did in the past. He has been on Symbicort. Although has been very expensive. Prior to that he had been on Advair. Will go ahead and switch him to AirDuo with a GoodRx card. I did give him a card and he will take it to the [facility] pharmacy in order to get a reasonable rahman. Hopefully the AirDuo if he takes it twice a day will be more effective for it. During the visit we did go for brief walking oximetry the stairs the patient maintain a pulse ox of 96%. Heart rate did increase to about 105. He was winded about dyspnea score 5/10. It did improve after few minutes. He already had a cardiac evaluation and stress test per the patient and was okay per the patient. Therefore at this point I believe he is doing okay. His last CT scan was last year demonstrating stable pulmonary nodules for more than 2 years. He also had PFTs back about a year ago and does also reasonable without any evidence of any definitive obstructive nor restrictive ventilatory defects. He is going to start the AirDuo and continue to exercise. He is going to be watching closely for poor air quality. If his symptoms worsen then he can always call and we can repeat an x-ray and PFTs to assess any further progression of his airway disease. 12/02/2024 the patient is here for pulmonary follow-up visit. He has been sick now for couple weeks. Congestion cough and chest tightness. Was evaluated doxycycline and also prednisone started on 60 mg she has been using his rescue inhaler regularly in addition to maintenance inhaler. After completing the oxygen the prednisone has not seen any significant improvement. On exam he does not have any significant wheezing but he still has productive cough congested. Will go ahead and start him on Augmentin. We can also consider levofloxacin. The patient if no better after starting the Augmentin for chest x-ray. He will continue with his current respiratory therapy at this time. He has been taking Delsym. Will switch that over to Mucinex DM or the generic. Patient will return the springtime, but he can always push the appointment to the fall if he is doing okay. 03/10/2025 the patient is here for a pulmonary follow-up visit. She he started developing worsening cough chest congestion. Positive sick contacts. His AirDuo is back order so he does not have access to it. She has like he really needs to have his maintenance inhaler. I did give him a prescription for Breztri to see if it is, with a coupon and then after that he can try Wixela. I would send out to the pharmacy. Although he is having some wheezing on exam right now so for will treat him for COPD exacerbation. He is also concerned about his pulmonary nodules. He had a CAT scan back in November 2024. Personally reviewed. Urinary nodules appear to be stable. He does have some minimal interstitial changes. Does have some atelectasis. Therefore will continue to monitor with serial CAT scans his next CAT scans scheduled for November 2025. Therefore he will restart his maintenance therapy continue with his rescue will go ahead and treat him for this exacerbation again. Based on his chronic bronchitis he benefits from a longer duration antibiotics so therefore will start him on macrolide suppressant therapy Sunday. If he takes it more than a month he should get an EKG. Order has been placed. [facility] Medical History (Updated 12/05/24 @ 14:21 by Brenton Barrios MD) Pneumonia Asthma-COPD overlap syndrome Pulmonary nodules Cough Dyspnea Social History Patient Tobacco Use Status: Never used Tobacco Review of Systems Const Denies night sweats ENT Denies change in voice, Denies lip swelling, Denies mouth pain, Reports nasal congestion, Reports nasal discharge and Denies tongue swelling Card Denies chest pain and Reports dyspnea on exertion Resp Reports cough, Reports dyspnea on exertion and Reports wheezing GI Denies abdominal pain Musc Denies no additional complaints Neuro Denies Neuro-related abnormal movements Psych Denies no additional complaints Porfirio/Lymph Denies easy bleeding and Denies lymphadenopathy Aller/Immun Denies lip swelling, Denies tongue swelling and Reports wheezing Physical Exam Vital Signs: Last Vital Signs Pulse 63 03/10/25 08:32 BP 132/74 03/10/25 08:32 Pulse Ox 96 03/10/25 08:32 Oxygen Delivery Method Room Air 03/10/25 08:32 BMI result Body Mass Index 26.3 Const General: alert Neck Neck: Yes normal visual inspection, Yes full ROM and Yes no lymphadenopathy Chest Chest palpation & inspection: normal inspection of the chest Resp Auscultation: rhonchi, wheezes and diminished lung sounds Cardio Rate: regular rate Rhythm: regular rhythm Heart sounds: S1 normal heart sound present and S2 normal heart sound present GI Palpation (GI): Soft to palpation and nontender Auscultation: normal bowel sounds Skin General skin exam: rashes and/or lesions noted Assessment & Plan Assessment & Plan (1) Asthma-COPD overlap syndrome: Code(s): J44.9 - Chronic obstructive pulmonary disease, unspecified Category: Medical (2) Pulmonary nodules: Code(s): R91.8 - Other nonspecific abnormal finding of lung field Category: Medical (3) Cough: Code(s): R05 - Cough Category: Medical Qualifiers: Cough type: chronic Qualified Code(s): R05.3 - Chronic cough (4) Bronchitis: Code(s): J40 - Bronchitis, not specified as acute or chronic Category: Medical Plan start Azithromycin MWF EKG start Prednisone burst change Airduo to Breztri->Wixela Continue allergy therapy Singulair and as needed Zyrtec Continue fluticasone nasal spray CT chest 11/2024 stable nodules Follow-up in 3-4 months Orders: Orders ECG 12 lead EKG Today J44.9 - Chronic obstructive pulmonary disease, unspecified Medications: New azithromycin Take 1 tablet on Sunday/Sunday/Sunday 250 mg PO 3XW 28 days 12 tabs 1RF K21.9 - Gastro-esophageal reflux disease without esophagitis pojdwzngih-fpohgedu-chsnvytxvk 160-9-4.8 mcg/actuation (Breztri Aerosphere) 2 inhalations inhalation BID 30 days 10.7 grams 0RF fluticasone propion-salmeterol 250-50 mcg/dose (Wixela Inhub) 1 inh inhalation Q12H 30 days 60 ea 11RF prednisone PO daily; Take 2 tabs daily x 5 days, then 1 tablet daily x 5 days 10 days 15 tabs 0RF Coding Level of Care Code Est Pt Level 4 (71204) Complex EM visit Add On G2211 Diagnoses Asthma-COPD overlap syndrome J44.9 Pulmonary nodules R91.8 Chronic cough R05.3 Cough type: chronic Bronchitis J40 Time Spent (min) 17
[2025-03-10 08:32] VITALS: BP 132/74; PULSE 63; O2SAT 96; BMI 26.3
--- OUTSIDE RECORDS SUMMARY | 2025-03-10 08:50 | XMS_ITS | Clinical Summary ---
Author Organization LL [address] [place] [address] [place] [phone] Phone Care Team Providers Care Flexible Nanny Name Role Phone Capo Posada MD Primary Care Provider [phone] Allergies Active Allergy Reactions Criticality Noted Date Comments House Dust 12/09/2020 Mold 12/09/2020 Medications budesonide-form oteroL (SYMBICORT) 160-4.5 mcg/actuation inhaler Route: Inhale 2 Puffs into the lungs 2 times daily. - Inhalation Active cetirizine (ZyrTEC) 10 mg tablet Take 1 Tablet by mouth daily as needed. Active Lactobacillus acidophilus (PROBIOTIC ORAL) Take by mouth daily. Active tamsulosin (FLOMAX) 0.4 mg 24 hr capsule Take 1 Capsule by mouth daily. Take 30 mins after same meal every day. Active blood pressure monitor (Blood Pressure Kit) kit 1 Each by Does not apply route daily. 03/12/20 24 Active amLODIPine (NORVASC) 2.5 mg tablet Take 1 tablet (2.5 mg total) by mouth 1 (one) time each day. Active montelukast (SINGULAIR) 10 mg tablet Take 1 Tab by mouth at bedtime. 12/26/19 19 Active finasteride (PROSCAR) 5 mg tablet Take 1 tablet (5 mg total) by mouth 1 (one) time each day. Active atorvastatin (LIPITOR) 20 mg tabletIndicatio ns:Essential (primary) hypertension,Pu re hypercholestero lemia, unspecified TAKE 1 TABLET BY MOUTH EVERY DAY 90 tablet 1 02/27/20 25 Active atorvastatin (LIPITOR) 20 mg tablet Take 1 tablet (20 mg total) by mouth 1 (one) time each day. 08/14/20 24 025 Discontinued Active Problems Problem Noted Date Diagnosed Date Essential hypertension 12/09/2020 Overview (12/17/2024): Last Assessment & Plan: His blood pressure is 126/80 today he is only on metoprolol XL 12.5 mg daily as well as low-dose amlodipine 2.5 mg daily. He would like to stop one of his antihypertensives which I believe is reasonable. Heart rate is stable at 60 bpm. I am going to stop metoprolol today and he will continue amlodipine at the current dose. He will continue to monitor his blood pressures at home. He will call us if he has any elevated readings and we will consider increasing the amlodipine as it makes sense to keep him on 1 antihypertensive agent at this time. He did do a [facility] screening which showed only mild atherosclerotic disease. I believe is reasonable at this time to continue monotherapy with amlodipine and monitor his blood pressure. He will continue his stable exercise routine and low-salt/low-cholesterol diet. Assessment & Plan (02/23/2025 1:32 PM EDT): Blood pressure slightly elevated today although reviewing his prior readings it has been well-controlled on amlodipine 2.5 mg a day. He will continue to stay physically active and maintain a low-salt diet. If he continues to have elevated readings at home then could increase dose of amlodipine to 5 mg a day. His primary care physician arranged for echocardiogram through the [facility] system and I think this is reasonable as his last study was nearly 5 years ago. Hyperlipidemia LDL goal <70 12/09/2020 Overview (12/17/2024): Last Assessment & Plan: Last LDL a year ago was 78. I have given him a slip to repeat his lipids. Depending on what these show I may increase his atorvastatin. Assessment & Plan (02/23/2025 1:31 PM EDT): Most recent LDL was 78. He has been on atorvastatin 20 mg a day for years. I counseled that for primary prevention a reasonable LDL target is less than 130, optimally less than 100. Since he is well below these goals I recommended he continue with atorvastatin. I did not feel on the basis of his symptomatology or prior cardiac testing that aspirin is necessary. He noted that he has easy bruising on aspirin. Other chest pain 12/09/2020 Overview (12/17/2024): Last Assessment & Plan: As a note this patient did have several episodes of a pressure feeling in his chest associated with lightheadedness with certain type of activity. Etiology is not clear but I am concerned it may be ischemic mediated. I am get scheduled for stress echocardiogram. In the meantime I have asked him to avoid activities that would lead to the symptoms. I did tell if he any discomforts in his chest that lasts or 10 to 15 minutes to call 911. Asthma 06/04/2017 Chronic obstructive bronchitis (CMS/HCC V24, CMS /HCC V28) 06/04/2017 Lung nodule 06/04/2017 Benign prostatic hyperplasia 03/28/2017 Malignant neoplasm of urinar y bladder (CMS/HCC V24, CMS/HCC V28) 03/28/2017 Tubular adenoma 03/28/2017 Encounters Date Type Department Care Team Description 02/23/2025 1:00 PM EDT Office Visit [facility] [address] [place] [address] Selene Segura MD Essential hypertension (Primary Dx); Hyperlipidemia LDL goal <70 from Last 3 Months Surgical History Surgery Date Site/Laterality Comments APPENDECTOMY PROCEDURE: HISTORICAL APPENDECTOMY TONSILLECTOMY PROCEDURE: HISTORICAL TONSILLECTOMY KNEE SURGERY PROCEDURE: HISTORICAL KNEE SURGERY OTHER SURGICAL HISTORY PROCEDURE: MO BIOPSY PROSTATE INCISIONAL ANY APPROACH Medical History Medical History Date Comments Asthma 06/04/2017 DX:Asthma Benign prostatic hyperplasia 03/28/2017 DX: Benign prostatic hyperplasia Chronic obstructive bronchit is (CMS/HCC V24, CMS/HCC V28) 06/04/2017 DX:Chronic obstructive bron chitis (HCC) Lung nodule 06/04/2017 DX:Lung nodule Malignant neoplasm of urinar y bladder (CMS/HCC V24, CMS/HCC V28) 03/28/2017 DX:Malignant neoplasm of ur inary bladder (HCC) Tubular adenoma 03/28/2017 DX:Tubular adeno ma Family History Medical History Relation Name Comments CABG Father Diabetes Maternal Grandmother Diabetes Other uncle Heart attack Son Relation Name Status Comments Father Maternal Grandmother Other uncle Other Son Social History Tobacco Use Types Packs/Day Years Used Date Smoking Tobacco: Never Smokeless Tobacco: Never Tobacco Cessation:Counseling Given: Not Answered Alcohol Use Standard Drinks/Week Comments Yes 0 (1 standard drink = 0.6 oz pur e alcohol) Sex and Gender Information Value Date Recorded Sex Assigned at Not on file Legal Sex Male 10:25 PM EST Gender Identity Not on file Sexual Orientation Not on file Obstetrics History Last Filed Vital Signs Vital Sign Reading Time Taken Comments Blood Pressure 140/84 02/23/2025 12:40 PM EDT Pulse 70 02/23/2025 12:40 PM EDT Temperature - - Respiratory Rate - - Oxygen Saturation 93% 02/23/2025 12:40 PM EDT Inhaled Oxygen Concentration - - Weight 84.8 kg (187 lb) 02/23/2025 12:40 PM EDT Height 180.3 cm (5' 11 ) 02/23/2025 12:40 PM EDT Body Mass Index 26.08 02/23/2025 12:40 PM EDT Plan of Treatment Health Maintenance Due Date Last Done Comments DTaP,Tdap,and Td Vaccines (1 - Tdap) 1964 Pneumococcal Vaccine: 50+ Years (2 of 2 - PPSV23) 09/25/2018 07/31/2018 Zoster Vaccines (2 of 2) 02/05/2020 12/11/2019 Cholesterol Screening (Lipid Panel) 10/22/2022 Depression Screening 10/22/2022 Falls Risk Assessment 10/22/2022 Hepatitis C Screening 10/22/2022 Social Influencers of Health Screening 10/22/2022 Hypertension/CHF/CAD Annual BMP Blood Test 10/29/2022 Medicare Annual Wellness Visit 10/20/2023 10/20/2022 COVID-19 Vaccine (7 - Pfizer risk season) 2025 08/16/2024, 08/08/2022, 02/23/2022, Additional history exists RSV Immunization Adult Patients Completed 12/17/2023 Influenza Vaccine Completed 09/23/2024, , 09/06/2022, Additional history exists HIB Vaccines Aged Out No longer eligi ble based on patient's age to complete this topic HPV Vaccines Aged Out No longer eligi ble based on patient's age to complete this topic Hepatitis A Vaccines Aged Out No long er eligible based on patient's age to complete this topic Hepatitis B Vaccines Aged Out No long er eligible based on patient's age to complete this topic IPV Vaccines Aged Out No longer eligi ble based on patient's age to complete this topic MMR Vaccines Aged Out No longer eligi ble based on patient's age to complete this topic Meningococcal ACWY Vaccine Aged Out N o longer eligible based on patient's age to complete this topic Meningococcal B Vaccine Aged Out No l onger eligible based on patient's age to complete this topic RSV Immunization Patients Under 20 months Aged Out No longer eligible based on patient's age to complete this topic Varicella Vaccines Aged Out No longer eligible based on patient's age to complete this topic Procedures Procedure Name Priority Date/Time Associated Diagnosis Comments ECG 12-LEAD Routine 02/23/2025 12:45 PM EDT Essential hypertension from Last 3 Months Results * ECG 12 lead (02/23/2025 12:45 PM EDT) Ventricular Rate ECG 70 BPM GEMUSE Atrial Rate 70 BPM GEMUSE P-R Interval 196 ms GEMUSE QRS Duration 96 ms GEMUSE Q-T Interval 388 ms GEMUSE QTc 419 ms GEMUSE P Wave [place] 69 degrees GEMUSE R [place] -30 degrees GEMUSE T [place] 18 degrees GEMUSE ECG Interpretation Normal sinus rhythm Left axis deviation Abnormal ECG When compared with ECG of 23-SEP-2020 04:54, No significant change was found Confirmed by SELENE SEGURA ([id number]) on 02/23/2025 1:28:23 PM GEMUSE 02/23/2025 12:4 5 PM EDT 02/23/2025 1:28 PM EDT us Selene Segura MD ECG ORDERABLES Final Result GEMUSE from Last 3 Months Insurance MEDICARE Advance Directives Documents on File Type Date Recorded Patient Postulant Expl anation Health Care Decision (hx) 09/27/2020 AD MALLORY DIRECTIVE Health Care Decision (hx) 09/27/2020 AD MALLORY DIRECTIVE Health Care Decision (hx) 09/27/2020 AD MALLORY DIRECTIVE Health Care Decision (hx) 09/27/2020 AD MALLORY DIRECTIVE Care Teams Flexible Nanny Relationship Specialty Start Date End Date Capo Posada MD [address] [place], [place] [address] PCP - General Internal Medicine 01/27/13
--- OUTSIDE RECORDS SUMMARY | 2025-03-10 08:50 | XMS_ITS | Continuity of Care Document ---
Author Organization [place] - [facility] Address [address] [address] Care Team Providers Care Promotions Representative Name Role Phone RENAN FLOREZ Primary Care Provider [phone] Assessment Encounter Date Assessment Date Assessment LastModified by Organization Details LastModified Time 03/05/2025 03/05/2025 Using the Verifi t I, real-ear verification using speech mapping was performed. The devices were underfitting at 1500 Hz and below for all sounds, as well as above 1500 Hz and above for louder sounds. The devices were adjusted and found to adequately amplify speech, hitting targets at 500 through 3000 Hz even with medium receivers. Counseled patient that while this may help him hear better, it likely will not eliminate the majority of his complaints as these are related to the limitations of hearing loss and hearing devices. Per patient's request, [employer] will be contacted regarding the trial period expiration and whether an exchange or return would be possible. Counseled patient that a different hearing aid fitting would be expected to result in the same complaints and my recommendation is to continue working with his current hearing aids, adjusting to the binaural amplification, and appreciating the limitations that result from hearing loss. [email or web address] Not available 03/05/2025 13:18:01 Plan of Treatment Reminders Order Date Submit Date Provider Last Modified By Organization Details Last Modified Time Details Appointments Establish ed 15 2024 09:45A M DARBY CAMACHO PA-C Not available Not available Not available Lab None recorded. Referral None recorded. Procedures None recorded. Surgeries None recorded. Imaging None recorded. Medication Orders None recorded. Patient TargetsNo targets recorded. Patient InstructionsNo instructions recorded. Reason for Referral None Reported. Problems Name Problem SNOMED Code Status Onset Date Resolution Date Notes Provider Name and Address Organization Details Recorded Time Cough 45172031 Active 2014 Cough; Note: Date Diagnosed : 02/01/2015 3:26 PM (786.2) Not Available [facility] 4 03:12:19 Diffuse otitis externa 48469055 Active 2014 Diffuse otitis externa, left ear; Note: Date Diagnosed : 08/24/2015 11:23 AM (H60.312) Diffuse otitis externa, left ear; Note: Changed from 380.10 to H60.312 ( 5 10:54 AM) , Date Diagnosed : 07/23/2015 1:17 PM (380.10) ; Start Date : 5 Not Available [facility] 4 03:12:20 Allergic rhinitis 12744652 Active 2014 Allergic rhinitis: Due to other allergen; Note: Date Diagnosed : 03/03/2015 10:05 AM (477.8) Allergi c rhinitis, unspecifi ed; Note: Changed from 477.9 to J30.0 ( 5 11:21 AM) , Changed from J30.0 to J30.9 ( 11:21 AM) , Date Diagnosed : 02/01/2015 3:26 PM (477.9) ; Start Date : 5 Not Available [facility] 4 03:12:20 Mycosis 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; Note: Date Diagnosed : 12/19/2016 9:35 AM (B48.8) Not Available [facility] 4 03:12:18 Impacted cerumen in right ear [id number] 04404 Active 2015 Impacted cerumen, right ear; Note: Date Diagnosed : 05/23/2016 9:17 AM (H61.21) Not Available [facility] 4 03:12:20 Sensorine ural hearing loss of bilateral ears 451147156 Active 2014 Sensorine ural HL, bilateral ; [...] ; Start Date : 5 Not Available [facility] 4 03:12:19 Polyp of nasal cavity and/or nasal sinus 762180827 Active 2014 Nasal polyp, unspecifi ed; Note: Changed from 471.9 to J33.9 ( 5 11:21 AM) , Date Diagnosed : 02/01/2015 3:26 PM (471.9) Not Available [facility] 4 03:12:18 Impacted cerumen 20580066 Active 2015 Impacted cerumen; Note: Date Diagnosed : 05/23/2016 9:14 AM (380.4) Not Available [facility] 4 03:12:19 Impacted cerumen of bilateral ears 62525069670 53318 Active 2015 Impacted cerumen, bilateral ; Note: Date Diagnosed : 05/08/2016 9:15 AM (H61.23) Not Available [facility] 4 03:12:19 Problem Notes None recorded. Procedures Surgical History Date Name Laterality Status Provider Name and Address Organization Details Recorded Time 5 Cerumen removal without microscope bilat completed DARBY CAMACHO PA-C [address] [place] [address], [phone], [facility] 01/29/2025 08:58:51 4 Cerumen removal without microscope bilat completed DARBY CAMACHO PA-C [address] [place] [address], [phone], [facility] - [facility] 10/02/2024 09:13:30 4 Cerumen removal without microscope bilat completed KAEL LAN PA-C [address] [place] [address], [phone], [facility] - [facility] 05/05/2024 13:15:12 Imaging Results None recorded. [...] t Available prednison e 10 mg tablet 4 TABS X 2 DAYS, 3 TABS X 2 DAYS, 2 TABS X 2 DAYS THEN 1 TAB X 2 DAYS THEN OFF ORALLY ONCE A DAY active Not Available Not Available No [...] mg tablet 2016 active Medicati on ID: [id number] D uration Value: 30 Brand Name: atorvast atin Sen d Method: E-Prescr ibed Sub s Allowed: subs OK Speci al Instruct ion: TAKE 1 TABLET BY ORAL ROUTE EVERY DAY Medi cationGe nericNam e: atorvast atin Not Available Not Available Not Available tizanidin e 4 mg tablet TAKE 1 TABLET BY MOUTH EVERY 8 HOURS NEEDED active Not Available Not Available No t Available fluoroura cil 2 % topical solution APPLY ONE DAY PER WEEK (IE. SUNDAY) AM AND PM TO [facility] ON SCALP FOR 3 MONTHS. active Not Available Not Available No t Available amlodipin e 2.5 mg tablet TAKE [...] Not Available Not Available No t Available triamcino lone acetonide 0.025 % topical cream APPLY TWICE A DAY FOR ITCH/DRY NESS ON LEGS AND ARM UNTIL IMPROVED THEN NEEDED active Not Available Not Available No [...] inhalatio n 2014 active Medicati on ID: [id number] Du ration Value: 30 Brand Name: Advair Diskus S end Method: E-Prescr ibed Sub s Allowed: subs OK Speci al Instruct ion: INHALE 1 PUFF BY MOUTH 2 TIMES A DAY Medi cationGe nericNam e: Advair Diskus Not Available Not Available Not Available clotrimaz ole 1 % topical solution 2016 active Medicati on ID: [id number] P rescribe d By Name: BLANE Duarte nd Name: clotrimichelle arzate Sen d Method: E-Prescr ibed Sub s Allowed: subs OK Speci al Instruct ion: 4 drops to affected ear 2 times a day X 30 days Med icationG enericNa me: clotrima zole Not Available Not Available Not Available omeprazol e 20 mg capsule,d elayed release 2014 active Medicati on ID: [id number] Du ration Value: 30 Brand Name: omeprazo le Send Method: E-Prescr ibed Sub s Allowed: subs OK Specpedro pablo al Instruct ion: 1 CAP(S) ONCE A DAY ORALLY 30 DAY(S) M edchaka Tomas Name: omeprazo le Not Available Not Available Not Available diclofena c sodium 75 mg tablet,de layed release TAKE 1 TABLET BY MOUTH TWICE A DAY active Not Available Not Available No t Available [facility] [facility] 10 mg tablet TAKE 1 TABLET BY MOUTH EVERY DAY active Not Available Not Available No t Available ammonium lactate 12 % topical cream 2017 active Medicati on ID: [id number] D uration Value: 20 Brand Name: ammonium lactate Send Method: E-Prescr ibed Sub s Allowed: subs OK Medic ationGen ericName : ammonium lactate Not Available Not Available Not Available Iophen C-NR 10 mg-100 mg/5 mL oral liquid 02/26 completed Medicati on ID: [id number] Du ration Value: 12 Reason: () Brand [...] 24 hr 2016 active Medicati on ID: [id number] D uration Value: 90 Brand Name: metoprol ol succinat e Send Method: E-Prescr ibed Sub s Allowed: subs OK Speci al Instruct ion: TAKE HALF A TABLET BY ORAL ROUTE EVERY DAY Medi cationGe nericNam e: metoprol ol succinat e Not Available Not Available Not Available Aspir-81 mg tablet,de layed release 02/20 completed Medicati on ID: [id number] Re ason: () Brand Name: Aspir-81 Send [...] ne propionat e 50 mcg/actua tion nasal spray,[facility] 2014 active Medicati on ID: [id number] Du ration Value: 30 Brand Name: fluticas one Send Method: E-Prescr ibed Sub s Allowed: subs OK Speci al Instruct ion: USE 1 SPRAY TWICE A DAY EACH NOSTRIL Medicati onGeneri cName: fluticas one Not Available Not Available Not Available clotrimaz ole 1 % topical cream 12/19 completed Medicati on ID: [id number] Du ration Value: 14 Brand Name: nicolás arzate Sen d Method: E-Prescr ibed Sub s Allowed: subs OK Medic ationGen ericName : nicolás arzate Not Available Not Available Not Available doxycycli [...] mg tablet 07/23 completed Medicati on ID: [id number] Du ration Value: 30 Reason: () Brand [...] aerosol inhaler 02/26 completed Medicati on ID: [id number] Du ration Value: 30 Reason: () Brand [...] inhalatio n 2017 active Medicati on ID: [id number] D uration Value: 30 Brand Name: Monishao Ellipta Send Method: E-Prescr ibed Sub s [...] SNOMED-CT Code Diagnosis ICD10 Code Diagnosis Note [id number] Krystal [place] [address] [facility] [address] [place] [address] 02/16/2025 14:55:13 02/21/2025 12:16:34 Sensorineural hearing loss of bilateral ears [id number] H90.3 [id number] Krystal [place] [place] [address] [facility] 100 [place] [address] 03/05/2025 10:11:26 03/09/2025 11:38:25 Sensorineural hearing loss of bilateral ears 709960793 H90.3 Health Concerns Section Related Observation LastModified by Organization Detai ls LastModified Time None Recorded Concern Status LastModified by Organization Details LastModified Time None Recorded Payers Encounter Date Sequence Insurance Name Policy Number Policy Montes Covered Member ID Montes Member ID Guarantor Name 03/05/2025 1 [place] [employer] Manuel So [id number] Manuel So 03/05/[address] [facility] ([place]PPLEMENT) [id number] Manuel Seo Judah [id number] Manuel H Judah Notes Date Note Type Note Provider Name and Address Organization Details Recorded Time 03/05/2025 text/html Patient returned for a follow up for the fitting of new technology as a {{first time user of amplification long standing user of amplification long standing user of the same style devices* longstand ing user of different devices}}. Patient reported satisfaction with fit and comfort. However, they continue to report issues with inability to hear the television at the same volume as his partner, women being harder to hear than men, and issues tolerating loud sounds. He was able to hear the television louder when he turned the hearing aids up to maximum but this was too bothersome for all other situations. He asks if they are able to be returned or exchanged. AALIYAH CALDERÓN, [address],[place] [address], [place], [address], [facility] - [facility] 03/05/2025 13:18:13
--- OUTSIDE RECORDS SUMMARY | 2025-03-10 08:50 | XMS_ITS | Data Portability ---
Author Organization [place] - [facility], [facility] Address [address] [address] Care Team Providers Care Orthodontist Assistant Name Role Phone VIKKIRENAN Primary Care Provider Assessment Encounter Date Assessment Date Assessment LastModified by Organization Details LastModified Time 01/06/2025 01/06/2025 Earmolds were fitted without difficulty. Real-ear verification using speech mapping was performed using the Audioscan Verifit II. Patient reported improved hearing after adjustment, however, audbility <2 kHz is not easily increased. Cautioned the patient that we could choose to occlude the vent hole more or switch back to power receivers if more audibility is needed. Given his history with own voice & all sounds being too loud, better outcomes are expected with the medium focused factory manager for now. Follow up in 2 weeks to discuss progress. [email or web address] Not available 01/06/2025 14:16:49 01/20/2025 01/20/2025 Increased medium & loud input gain by 4 clicks. Patient reported satisfaction with sound quality. The hearing devices are in working order and generally free of debris. The devices were programmed wirelessly using the president practicing urologist software in [facility]. The Audioscan Verifit II hearing aid analyzer was used previously for real-ear verification and not recommended to be repeated unless significant changes are made to the devices. Follow up to discuss progress with new settings. [email or web address] Not available 01/20/2025 14:34:54 01/29/2025 01/29/2025 79-year-old male presents for cerumen removal. Cerumen impaction removed bilaterally. Bilateral TMs are intact. Follow up in 3-4 months for routine debridement. [email or web address] Not available 01/29/2025 08:58:55 02/16/2025 02/16/2025 Hearing devices were found to be in working order and the patient reported improvement in their ability to hear speech with our latest adjustment. He did not ask for anything to be changed but reported that his own voice is too soft for others; this was obvious in the office as the patient seemed softspoken to me as well. The likely cause is the pressure vents of his molds. After boring them out to a 1-2mm vent size, the patient did not lower his voice when wearing the hearing aids. Follow up in 1 week to review progress. There is still room to bore out the vent holes some more. Not available 02/16/2025 16:04:16 03/05/2025 03/05/2025 Using the Verifi t I, [...] loss and hearing devices. Per patient's request, [employer] will be contacted regarding the trial period expiration and whether an exchange or return would be possible. Counseled patient that a different hearing aid fitting would be expected to result in the same complaints and my recommendation is to continue working with his current hearing aids, adjusting to the binaural amplification, and appreciating the limitations that result from hearing loss. [email or web address] Not available 03/05/2025 13:18:01 Plan of Treatment [...] and Address Organization Details Recorded Time Cough 61794726 Active 2014 Cough; Note: Date Diagnosed : 02/01/2015 3:26 PM (786.2) Not Available [facility] 4 03:12:19 Diffuse otitis externa 97428041 Active 2014 Diffuse otitis externa, left ear; Note: Date Diagnosed : 08/24/2015 11:23 AM (H60.312) Diffuse otitis externa, left ear; Note: Changed from 380.10 to H60.312 ( 5 10:54 AM) , Date Diagnosed : 07/23/2015 1:17 PM (380.10) ; Start Date : 5 Not Available [facility] 4 03:12:20 Allergic rhinitis 47864053 Active 2014 Allergic rhinitis: Due to other allergen; Note: Date Diagnosed : 03/03/2015 10:05 AM (477.8) Allergi c rhinitis, unspecifi ed; Note: Changed from 477.9 to J30.0 ( 11:21 AM) , Changed from J30.0 to J30.9 ( 11:21 AM) , Date Diagnosed : 02/01/2015 3:26 PM (477.9) ; Start Date : 5 Not Available [facility] 4 03:12:20 Mycosis 9476665 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; Note: Date Diagnosed : 12/19/2016 9:35 AM (B48.8) Not Available [facility] 4 03:12:18 Impacted cerumen in right ear 94629059762 71034 Active 2015 Impacted cerumen, right ear; Note: Date Diagnosed : 05/23/2016 9:17 AM (H61.21) Not Available [facility] 4 03:12:20 Sensorine ural hearing loss of bilateral ears 885389807 Active 2014 Sensorine ural HL, bilateral ; [...] ; Start Date : 5 Not Available [facility] 4 03:12:19 Polyp of nasal cavity and/or nasal sinus 623171010 Active 2014 Nasal polyp, unspecifi ed; Note: Changed from 471.9 to J33.9 ( 5 11:21 AM) , Date Diagnosed : 02/01/2015 3:26 PM (471.9) Not Available [facility] 4 03:12:18 Impacted cerumen 49964698 Active 2015 Impacted cerumen; Note: Date Diagnosed : 05/23/2016 9:14 AM (380.4) Not Available [facility] 4 03:12:19 Impacted cerumen of bilateral ears 45438580749 61385 Active 2015 Impacted cerumen, bilateral ; Note: Date Diagnosed : 05/08/2016 9:15 AM (H61.23) Not Available [facility] 4 03:12:19 Problem Notes None recorded. Procedures Surgical History Date Name Laterality Status Provider Name and Address Organization Details Recorded Time 5 Cerumen removal without microscope bilat completed DARBY CAMACHO PA-C [address] [place] [address], [address], [place] - [facility] 01/29/2025 08:58:51 4 Cerumen removal without microscope bilat completed DARBY CAMACHO PA-C [address] [place] [address],[address], [address], [place] - [facility] 10/02/2024 09:13:30 4 Cerumen removal without microscope bilat completed KAEL LAN PA-C 100 [facility],[address], [address], [place] - [facility] 05/05/2024 13:15:12 Imaging Results None recorded. Procedure [...] mg tablet 2016 active Medicati on ID: [id number] D uration Value: 30 Brand Name: atorvast atjuan Sen d Method: E-Prescr ibed Sub s [...] WEEK (IE. SUNDAY) AM AND PM TO ED AREAS ON SCALP FOR 3 MONTHS. [...] inhalatio n 2014 active Medicati on ID: 21475 Du ration Value: 30 Brand Name: Advair Diskus S end Method: E-Prescr ibed Sub s Allowed: subs OK Speci al Instruct ion: INHALE 1 PUFF BY MOUTH 2 TIMES A DAY Medi cationGe nericNam e: Advair Diskus Not Available Not Available Not Available clotrimaz ole 1 % topical solution 2016 active Medicati on ID: [id number] P yamile beasley By Name: BLANE Duarte nd Name: nicolás Hernadez d Method: E-Prescr ibed Sub s Allowed: subs OK Speci al Instruct ion: 4 drops to affected ear 2 times a day X 30 days Med ication enericNa me: clotrima zole Not Available Not Available Not Available omeprazol e 20 mg capsule,d elayed release 2014 active Medicati on ID: 59589 Du ration Value: 30 Brand Name: omeprazo [...] topical cream 2017 active Medicati on ID: [id number] D uration Value: 20 Brand Name: ammonium lactate Send Method: E-Prescr ibed Sub s Allowed: subs OK Medic ationGen ericName : ammonium lactate Not Available Not Available Not Available Iophen C-NR 10 mg-100 mg/5 mL oral liquid 02/26 completed Medicati on ID: 72449 Du ration Value: 12 Reason: () Brand [...] 24 hr 2016 active Medicati on ID: [id number] D uration Value: 90 Brand Name: metoprol ol succinat e Send Method: E-Prescr ibed Sub s Allowed: subs OK Speci al Instruct ion: TAKE HALF A TABLET BY ORAL ROUTE EVERY DAY Medi cationGe nericNam e: metoprol ol succinat e Not Available Not Available Not Available Aspir-81 mg tablet,de layed release 02/20 completed Medicati on ID: 68704 Re ason: () Brand Name: Aspir-81 Send [...] ne propionat e 50 mcg/actua tion nasal spray,[facility] 2014 active Medicati on ID: 20035 Du ration Value: 30 Brand Name: fluticas one Send Method: E-Prescr ibed Sub s Allowed: subs OK Speci al Instruct ion: USE 1 SPRAY TWICE A DAY EACH NOSTRIL Medicati onGeneri cName: fluticas one Not Available Not Available Not Available clotrimaz ole 1 % topical cream 12/19 completed Medicati on ID: 71683 Du ration Value: 14 Brand Name: clotrima [...] mg tablet 07/23 completed Medicati on ID: 63229 Du ration Value: 30 Reason: () Brand [...] aerosol inhaler 02/26 completed Medicati on ID: 53339 Du ration Value: 30 Reason: () Brand [...] inhalatio n 2017 active Medicati on ID: [id number] D uration Value: 30 Brand Name: Karis [...] and Address Organization Details Last Updated DateTime 01/29/2025 180.34 cm 24.7 kg/m2 78023.85 g Lyudmila Lanier [place] - [facility] 01/29/2025 09:02:24 Social History None recorded. Functional Status None recorded. Mental Status None recorded. Family History Nothing Reported. Medical History No medical history recorded. Past Encounters Encounter ID Performer Location Encounter Start Date Encounter Closed Date Diagnosis/Indication Diagnosis SNOMED-CT Code Diagnosis ICD10 Code Diagnosis Note [id number] LISSET MARES MD [facility] [address] [address] 05/05/2024 13:00:46 05/05/2024 13:20:35 Impacted cerumen of bilateral ears [id number] 540930 H61.23 Recurrent Cerumen Impactions : Ears were meticulous ly cleaned bilaterall y today with a curette and suction. The patient tolerated this well and will follow up for repeat debridemen t per routine. Sensorineu ral hearing loss of bilateral ears 908839330 H90.3 [id number] Krystal SULLIVAN [facility] [place] 100 [facility] ite [address] [place] [address] 09/29/2024 13:54:59 10/03/2024 07:22:43 Sensorineural hearing loss of bilateral ears 439141500 H90.3 [id number] LEW TAPIA MD [facility] 100 [place] [address] 10/02/2024 08:54:12 10/02/2024 09:21:31 Impacted cerumen of bilateral ears 9110544314 542697 H61.23 [id number] Krystal SULLIVAN [place] [address] [place] [address], [place] [address] 11/13/2024 13:53:46 11/14/2024 11:54:27 Sensorineural hearing loss of bilateral ears 794473055 H90.3 [id number] Krystal SULLIVAN [facility] [address] [place] [address] 01/06/2025 14:13:51 01/07/2025 07:37:39 Sensorineural hearing loss of bilateral ears 676925096 H90.3 [id number] Krystal SULLIVAN [place] [address] [place] [address], [place] [address] 01/20/2025 12:58:41 01/21/2025 07:58:02 Sensorineural hearing loss of bilateral ears 922402809 H90.3 [id number] LEW TAPIA MD [facility] [address] [place] [address] 01/29/2025 08:51:11 01/29/2025 09:09:57 Impacted cerumen of bilateral ears 7125901437 838109 H61.23 [id number] Krystal SULLIVAN [place] [address] [place] [address], [place] [address] 02/16/2025 14:55:13 02/21/2025 12:16:34 Sensorineural hearing loss of bilateral ears 126412713 H90.3 [id number] Krystal SULLIVAN [place] [address] [place] [address] 03/05/2025 10:11:26 03/09/2025 11:38:25 Sensorineural hearing loss of bilateral ears 803238750 H90.3 Health Concerns Section Related Observation LastModified by Organization Detai ls LastModified Time None Recorded Concern Status LastModified by Organization Details LastModified Time None Recorded Advance Directives Directive None Recorded Payers Encounter Date Sequence Insurance Name Policy Number Policy Montes Covered Member ID Montes Member ID Guarantor Name 01/06/2025 1 [place] [employer] Manuel Seo Clayjerrica [id number] Manuel Seo Judah 01/06/2025 2 [place] [id number] Manuel Seo Judah [id number] Manuel Seo Judah 01/20/2025 1 [place] Manuel Seo Judah [id number] Manuel Seo Judah 01/20/2025 2 [place] [id number] Manuel H Judah [id number] Manuel H Judah 01/29/2025 1 [place] [employer] Manuel Seo Judah [id number] Manuel H Judah 01/29/2025 2 [place] [id number] Manuel Gabbi Judah [id number] Manuel H Judah 02/16/2025 1 [place] [place] Manuel H Judah [id number] Manuel H Judah 02/16/2025 2 [place] [id number] Manuel H Judah [id number] Manuel H Judah 03/05/2025 1 [place] Manuel H Judah [id number] Manuel H Judah 03/05/2025 2 [place] [id number] Manuel So [id number] Manuel Gabbi Judah Notes Date Note Type Note Provider Name and Address Organization Details Recorded Time 01/06/2025 text/html Patient was here {{for an ear impression. They would like for ear impressions. They would like to crab picker*}} {{custom made earmolds.* an earmold for the right ear. an earmold for the left ear.}} The style of earmold {{is* to be fitted is}} a {{canal.* canal with canal lock. skeleton. half shell.}}. The material of earmold {{is* to be fitted is}} {{hard acrylic.* soft vinyl. soft silicone.}} Patient reported significant difficulty hearing with small power domes coupled to M receivers. Suspect that this is due to the domes, not the receivers. Krystal SULLIVAN [address], [address], [facility] 01/06/2025 14:17:29 01/20/2025 text/html Patient returned for a follow up for the fitting of new technology as a {{first time user of amplification* longst anding user of amplification longsta nding user of the same style devices longstanding user of different devices}}. Patient reported limited satisfaction with use, not hearing well enough for the television, at a restaurant, or hearing people that are speaking behind him. They reported that their {{devices are* device is}} in working order without defects. The sound quality of the {{devices are* device is}} {{satisfactory* not satisfactory}} but not loud enough. Krystal SULLIVAN [address] [address], [place], [address], [facility] 01/20/2025 14:35:13 01/29/2025 text/html 79-year-old male presents for cerumen removal. No concerns today. LEW TAPIA MD 100 [facility],[address] [address], [place], [address], [facility] 01/29/2025 16:28:01 02/16/2025 text/html Hearing Technolo gy HistoryReported bypatient.Sound quality and programming settingsthey are satisfied with current settings and technology Daily useconsistent use of amplification Patient returned for a follow up for the fitting of new technology as a {{first time user of amplification longsta nding user of amplification* longst anding user of the same style devices longstanding user of different devices}}. Patient previously reported dissatisfaction with settings (not loud enough) and he returned to discuss progress with our last adjustment. AALIYAH CALDERÓN, [facility] 100 [facility],[address] [address], [place], [address], [facility] - [facility] 02/16/2025 16:04:27 03/05/2025 text/html Patient returned for a follow up for the fitting of new technology as a {{first time user of amplification longsta nding user of amplification longsta nding user of the same style devices* longstanding user of different devices}}. Patient reported satisfaction [...] to be returned or exchanged. AALIYAH CALDERÓN, [facility] 100 [facility] 100, [place], [address], [facility] 03/05/2025 13:18:13
--- OUTSIDE RECORDS SUMMARY | 2025-03-10 08:50 | XMS_ITS | Clinical Summary ---
Author Organization [facility] Address [address] [place] [address] Care Team Providers Care Uniform Designer Name Role Phone Capo Posada MD Primary Care Provider Social History Tobacco Use Types Packs/Day Years Used Date Smoking Tobacco: Never Assessed Sex and Gender Information Value Date Recorded Sex Assigned at Not on file Gender Identity Not on file Sexual Orientation Not on file Job Start Date Occupation Industry Not on file Not on file Not on file Plan of Treatment Health Maintenance Due Date Last Done Comments Hepatitis C Screening 1945 COVID-19 Vaccine (#1) 02/10/1946 Depression Screening 1958 Preventative Health Evaluation 1964 DTap / Tdap / Td (1 - Tdap) 1965 Shingrix-Zoster Vaccine (1 of 2) 1996 Fall Risk Assessment 2011 Pneumococcal Vaccine (1 of 1 - PCV) 2011 RSV Adult > 60+ Yrs or Pregn ant (1 - 1-dose 75+ series) 2021 Influenza Vaccine (#1) 2024 Hepatitis B Vaccines Aged Out No long er eligible based on patient's age to complete this topic RSV Ped < 20 months Aged Out No longe r eligible based on patient's age to complete this topic Care Teams Uniform Designer Relationship Specialty Start Date End Date Capo Posada MD [address] [place] [id number] PCP - General Internal Medicine 08/07/23
--- OUTSIDE RECORDS SUMMARY | 2025-03-10 08:51 | XMS_ITS | Encounter Summary ---
Author Organization [facility] Address [address] [place] [address] Care Team Providers Care Cellar Supervisor Name Role Phone Capo Posada MD Primary Care Provider [phone] Encounter Details Date Type Department Care Team (Late st Contact Info) Description 09/25/2024 Lab Requisition [facility] - Main Lab [address] [facility] [place] [address] Gerry Portillo PA [address] [place] [address] Benign essential microscopic hematuria Social History Tobacco Use Types Packs/Day Years Used Date Smoking Tobacco: Never Smokeless Tobacco: Never Alcohol Use Standard Drinks/Week Comments Yes 0 (1 standard drink = 0.6 oz pur e alcohol) Sex and Gender Information Value Date Recorded Sex Assigned at Not on file Legal Sex Male 10:25 PM EST Gender Identity Not on file Sexual Orientation Not on file documented as of this encounter Plan of Treatment Not on file documented as of this encounter Procedures Procedure Name Priority Date/Time Associated Diagnosis Comments AP OUTSIDE CONSULT Routine 09/23/2024 Benign essential microscopic hematuria documented in this encounter Results * Anatomic pathology outside consult (09/23/2024) Final Diagnosis Urine, Voided: Negative for high grade urothelial carcinoma. Acute inflammation present. 10/06/2024 9:31 AM EST [facility] Gross Description A. Urine, Voided, : Rec'd 30 ml fluid 1 TP cyto with Reflex FISH if Atypical/Susp 10/06/2024 9:[address] [facility] Disclaimer Unless otherwise specified, all tissue is 10% NB formalin fixed and paraffin embedded. 10/06/2024 9:[address] [facility] Tissue Urine specimen from urethra / Unknown 09/23/2024 09/25/2024 9:14 AM EST us [facility] PATHOLOG[facility] ORDERAB LES Final Result [facility] [address] [place] [address], documented in this encounter Visit Diagnoses Diagnosis Benign essential microscopic hematuria documented in this encounter Care Teams Cellar Supervisor Relationship Specialty Start Date End Date Capo Posada MD [address] [place] [address] PCP - General Internal Medicine 01/27/13 documented as of this encounter
--- OUTSIDE RECORDS SUMMARY | 2025-03-10 08:51 | XMS_ITS | Continuity of Care Document ---
Author Organization [facility] - Nicholas Bailon [facility], KAT Samuels PT Address [address] [place] [address] Care Team Providers Care Registered Radiologic Technologist Name Role Phone RENAN FLROEZ Referring Provider [phone] RENAN FLOREZ Primary Care Provider [phone] Assessment Encounter Date Assessment Date Assessment LastModified by Organization Details LastModified Time 03/05/2025 03/05/2025 A: Pt tolerating treatment well, program regressed secondary to pain post previous treatment, likely from softball swing simulation. Pt reporting improved pain post treatment. Trialed hip flexion stretch but pain as pt unable to relax off the edge, reporting stretch in hip flexor with hip ext to neutral on table. Issued nerve glides, trialed light manual traction. P: Continue per plan of care. Initiate lateral walks/ progress hip strengthening as tolerated. [email or web address] Not available 03/05/2025 12:29:35 Plan of Treatment Reminders Order Date Submit Date Provider Last Modified By Organization Details Last Modified Time Details Appointments PT FOLLOW -UP 025 01:30PM Tiffanie Hernandez DPT Not available Not available Not available PT FOLLOW -UP 025 09:30AM Tiffanie Hernandez DPT Not available Not available Not available PT FOLLOW -UP 025 08:30AM Nilda Story STONEWORKER Not available Not available Not available PT FOLLOW -UP 025 10:00AM Tiffanie Hernandez DPT Not available Not available Not available PT FOLLOW -UP 025 08:30AM Nilda Story STONEWORKER Not available Not available Not available PT FOLLOW -UP 025 09:00AM Nilda Story STONEWORKER Not available Not available Not available Lab None record ed. Referral None record ed. Procedures None record ed. Surgeries None record ed. Imaging None record ed. Medication Orders None record ed. Patient TargetsNo targets recorded. Patient InstructionsNo instructions recorded. Reason for Referral None Reported. Problems Name Problem SNOMED Code Status Onset Date Resolution Date Notes Provider Name and Address Organization Details Recorded Time No complaints [id number] Active Status : 'I'; Not Available [facility] 4 09:25:30 Trigger finger of left hand [id number] Active 2023 Rosendo Augustin PA-C [address], [place], [address] , [facility] 4 08:25:40 Problem Notes None recorded. Procedures Surgical History Date Name Laterality Status Provider Name and Address Organization Details Recorded Time 5 79189: Therapeutic Activities (1:1) completed Nilda Story PTA [address], [place], [address], [facility] 02/20/2025 09:47:31 5 13163 Therapeutic Exercise (1:1) completed Tiffanie Hernandez DPT [address], [place], [address], [facility] 02/12/2025 13:13:35 5 56244: Low complexity PT Eval completed Tiffanie Hernandez DPT [address], [place], [address], [facility] 02/12/2025 14:30:15 5 G8419 BMI Outside Normal Parameters, F/U not Documented completed Tiffanie Hernandez DPT [address], [place], [address], [facility] 02/12/2025 13:05:14 5 G8427 Current Medication Documented completed Tiffanie Hernandez DPT [address], [place], [address], [facility] 02/12/2025 13:05:08 10/25/202 4 40338 Therapeutic Exercise (1:1) completed Tiffanie Hernandez DPT [address], [place], [address], [facility] 09/12/2024 14:02:35 09562 Therapeutic Exercise (1:1) completed Nilda Story STONEWORKER [address], [place], [address], [facility] 09/08/2024 18:51:43 55184 Therapeutic Exercise (1:1) completed Tiffanie Hernandez DPT [address], [place], [address], [facility] 09/05/2024 15:59:02 01986 Therapeutic Exercise (1:1) completed Nilda Story STONEWORKER [address], [place], [address], [facility] 09/03/2024 15:33:11 01820: Manual therapy completed Nilda Story STONEWORKER [address], [place], [address], [facility] 09/03/2024 15:25:26 03545 Therapeutic Exercise (1:1) completed Nilda Story PTA [address], [place], [address], [facility] 08/27/2024 14:45:20 92511: Manual therapy completed Nilda Story, STONEWORKER [address], [place], [address], [facility] 08/27/2024 14:45:20 72797 Therapeutic Exercise (1:1) completed Nilda Story, STONEWORKER [address], [place], [address], [facility] 08/21/2024 15:56:42 4 70456: Manual therapy completed Nilda Story, STONEWORKER [address], [place], [address], [facility] 08/21/2024 15:56:42 4 Hip Kenalog 1cc Injection, L/R completed Akil Dunham PA-C [address], [place], [address], [facility] 08/20/2024 15:37:03 4 42016 Therapeutic Exercise (1:1) completed Nilda Story, STONEWORKER [address], [place], [address], [facility] 08/18/2024 16:47:57 57087: Manual therapy completed Nilda Story, STONEWORKER [address], [place], [address], [facility] 08/18/2024 16:47:57 4 40692 Therapeutic Exercise (1:1) completed Nilda Story, STONEWORKER [address], [place], [address], [facility] 08/15/2024 15:59:22 4 63360: Manual therapy completed Nilda Story, STONEWORKER [address], [place], [address], [facility] 08/15/2024 15:59:27 4 34832 Therapeutic Exercise (1:1) completed Nilda Story, STONEWORKER [address], [place], [address], [facility] 08/12/2024 16:04:30 4 37874: Manual therapy completed Nilda Story, STONEWORKER [address], [place], [address], [facility] 08/12/2024 16:04:35 4 79020 Therapeutic Exercise (1:1) completed Nilda Story, STONEWORKER [address], [place], [address], [facility] 08/07/2024 12:22:14 4 71248: Manual therapy completed Nilda Story, STONEWORKER [address], [place], [address], [facility] 08/07/2024 12:22:14 4 85641 Therapeutic Exercise (1:1) completed Nilda Story, STONEWORKER [address], [place], [address], [facility] 08/05/2024 16:43:31 4 62949: Manual therapy completed Nilda Story, STONEWORKER [address], [place], [address], [facility] 08/05/2024 16:43:21 4 07974 Therapeutic Exercise (1:1) completed Tiffanie Hernandez DPT [address], [place], [address], [facility] 07/31/2024 16:54:17 4 15229: Low complexity PT Eval completed Tiffanie Hernandez DPT [address], [place], [address], [facility] 07/31/2024 16:56:02 4 G8419 BMI Outside Normal Parameters, F/U not Documented completed Tiffanie Hernandez DPT [address], [place], [address], [facility] 07/31/2024 16:22:55 4 G8427 Current Medication Documented completed Tiffanie Hernandez DPT [address], [place], [address], [facility] 07/31/2024 16:22:59 4 Trigger Finger Kenalog Injection completed Maxim Michael PA-C [address], [place], [address], [facility] 06/24/2024 13:40:50 JZTrigger Finger Injection completed Rosendo Augustin PA-C [address], [place], [address], [facility] 02/15/2024 08:26:00 Imaging Results None recorded. Procedure Notes None recorded. Medical Equipment None Reported. Allergies Allergen ID Allergen Name Allergen Category Reaction Reaction Severity Criticality Documentation Date Start Date Code Code System Note Provider Name and Address Organization Details Recorded Time 60681 mold extract environme nt Not available Not available Not available 01/21/20242015 15152 8 RxNorm Not Available [facility] 12:32:15 Medications Name Sig Start Date [...] Available Not Available prednisone 10 mg tablet 4 TABS X 2 DAYS, 3 TABS X 2 DAYS, 2 TABS X 2 DAYS THEN 1 TAB X 2 DAYS THEN OFF ORALLY ONCE A DAY 02/06 completed Not Available Not Available Not Available doxycycline hyclate 100 mg capsule TAKE 1 CAPSULE BY MOUTH TWICE A DAY FOR 7 DAYS 08/20 completed Not Available Not Available Not Available atorvastati n 20 mg tablet TAKE 1 TABLET BY MOUTH EVERY DAY active Not Available Not Available No t Available tizanidine 4 mg tablet TAKE 1 TABLET BY MOUTH EVERY 8 HOURS NEEDED active Not Available Not Available No t Available fluorouraci l 2 % topical solution APPLY ONE DAY PER WEEK (IE. SUNDAY) AM AND PM TO D AREAS ON SCALP FOR 3 MONTHS. active Not Available Not Available No t Available amlodipine 2.5 mg tablet TAKE 1 TABLET BY MOUTH EVERY DAY active Not Available Not Available No t Available prednisolon e acetate 1 % eye drops,suspe nsion INSTILL 1 DROP INTO LEFT EYE 4 TIMES A DAY FOR 1 WEEK 08/20 completed Not Available Not Available Not Available triamcinolo ne acetonide 0.025 % topical cream APPLY TWICE A DAY FOR ITCH/DRYN ESS ON LEGS AND ARM UNTIL IMPROVED THEN NEEDED active Not Available Not Available No t Available tamsulosin 0.4 mg capsule TAKE 1 CAPSULE BY MOUTH EVERY 12 HOURS active Not Available Not Available No t Available doxycycline monohydrate 100 mg capsule 01/22 completed Not Available Not Available Not Available dexamethaso ne 4 mg tablet TAKE 1TAB BY MOUTH 3 TIMES A DAY X2 DAYS, 1 TAB TWICE A DAY X2 DAYS, 1 TAB DAILY X2 DAYS DIRECTED active Not Available Not Available No t Available polymyxin B sulfate 10,000 unit-trimet hoprim 1 mg/mL eye drops INSTILL 1 DROP INTO RIGHT EYE EVERY 3 HOURS FOR 7 DAYS WHILE AWAKE DO NOT EXCEED 6 DOSES IN 24 HOURS 08/20 completed Not Available Not Available Not Available diclofenac sodium 75 mg tablet,sana yed release TAKE 1 TABLET BY MOUTH TWICE A DAY active Not Available Not Available No t Available montelukast 10 mg tablet TAKE 1 TABLET BY MOUTH EVERY DAY active Not Available Not Available No t Available gabapentin 100 mg capsule TAKE 1-3 CAPSULES BY MOUTH EVERY 8 HOURS NEEDED active Not Available Not Available No t Available ibuprofen 600 mg tablet TAKE 1 TABLET ONE HOUR PRIOR TO DENTAL APPOINTME NT AND ONE TABLET EVERY 6 HOURS FOR PAIN. 01/22 completed Not Available Not Available Not Available methylpredn isolone 4 mg tablets in a dose pack TAKE 6 TABLETS ON DAY 1 DIRECTED ON PACKAGE AND DECREASE BY 1 TAB EACH DAY FOR A TOTAL OF 6 DAYS 01/22 completed Not Available Not Available Not Available albuterol sulfate HFA 90 mcg/actuati on [...] MOUTH TWICE A DAY FOR 10 DAYS 01/22 completed Not Available Not Available Not Available Laxative (bisacodyl) 5 mg tablet,sana yed release 4 TABLETS ORALLY DIRECTED X1 DAY 08/20 completed Not Available Not Available Not Available azithromyci n 500 mg tablet 01/22 completed Not Available Not Available Not Available Zyrtec 10 mg chewable tablet Chew 1 tablet every day by oral route. active Not Available Not Available No t Available Gas Relief Extra Strength 125 mg [...] completed Not Available Not Available Not Available Symbicort 160 mcg-4.5 mcg/actuati on HFA aerosol inhaler Inhale 2 puffs twice a day by inhalatio n route. active Not Available Not Available No t Available GaviLyte-G 236 gram-22.74 gram-6.74 gram-5.86 gram [...] Not Available Vitals None Recorded Social History Question Answer Notes LastModified by Organizat ion Details LastModified Time Tobacco Smoking Status Never Smoker JUAN CARLOS sandhu [place] - [facility] 01/28/2025 10:47:11 Do You Or Have You Ever Used E-cigarettes Or Vape? Never Used Electronic Cigarettes [email or web address] Information not available 01/28/2025 Do You Use Any Illicit Or Recreational Drugs? No [email or web address] Information not available 01/28/2025 Do You Or Have You Ever Used Any Other Forms Of Tobacco Or Nicotine? No [email or web address] Information not available 01/28/2025 Sex: Unknown Functional Status None recorded. Mental Status None recorded. Family History Nothing Reported. Medical History No medical history recorded. Past Encounters Encounter ID Performer Location Encounter Start Date Encounter Closed Date Diagnosis/Indication Diagnosis SNOMED-CT Code Diagnosis ICD10 Code Diagnosis Note [id number] Rosendo Augustin PA-C [facility] [address] [place] [address] 02/06/2025 12:54:24 02/23/2025 13:37:22 Lumbar spondylosis 661977823 M47.549 [id number] [facility] [address] [place] [address] 02/12/2025 13:02:51 02/12/2025 15:38:59 Lumbar spondylosis 735786511 M47.677 [id number] [facility] [address] [place] [address] 02/20/2025 08:30:32 02/20/2025 11:01:56 Lumbar spondylosis 828801486 M47.764 [id number] [facility] [address] [place] [address] 02/26/2025 09:56:16 02/26/2025 12:05:01 Lumbar spondylosis 162501077 M47.840 [id number] [facility] [address] [place] [address] 03/05/2025 08:53:30 03/05/2025 12:30:10 Lumbar spondylosis 169723652 M47.816 Health Concerns Section Related Observation LastModified by Organization Detai ls LastModified Time None Recorded Concern Status LastModified by Organization Details LastModified Time None Recorded Payers Encounter Date Sequence Insurance Name Policy Number Policy Montes Covered Member ID Montes Member ID Guarantor Name 03/05/2025 2 [place] [id number] Manuel So [id number] Manuel So 03/05/2025 1 [place] [employer] Manuel H Judah [id number] Manuel So Notes Date Note Type Note Provider Name and Address Organization Details Recorded Time 03/05/2025 text/html Pt reporting increased pain since previous session. Pain with WBing in [place]. -08/28 with WBing. Pt prescribed gabapentin by physician. Tiffanie Hernandez, ROY[facility] [address] [facility] [address], [place], [address], [facility] 03/05/2025 12:30:00
== END 2025-03-10 09:02 | disposition home or self-care (01) ==
PROVIDERS: PCP Internal Medicine; Visit Provider Hospitalist
DX: J44.9 Chronic obstructive pulmonary disease, unspecified (principal); R91.8 Other nonspecific abnormal finding of lung field; R05.3 Chronic cough; J40 Bronchitis, not specified as acute or chronic
CPT/HCPCS: 99214; G2211

== ENCOUNTER → 2025-03-10 08:29 | Outpatient (BNVA) | payer MEDICARE, SELFPAY | PROVIDERS: PCP Internal Medicine; Visit Provider Hospitalist | DX: J44.89 Other specified chronic obstructive pulmonary disease (principal); J40 Bronchitis, not specified as acute or chronic; R91.8 Other nonspecific abnormal finding of lung field; R05.3 Chronic cough | CPT/HCPCS: 99212 ==

== ENCOUNTER 2025-05-19 09:15 | Outpatient (AMB) | payer MEDICARE, SELFPAY ==
--- NOTE | 2025-05-19 09:16 | MHC.OFFVIS ---
Vital Signs 05/19/25 09:17 Height 5 ft 11 in Weight 186 lb 4.65 oz BMI 26.0 BP 118/64 Blood Pressure Location Lt brachial Position Sitting Pulse 72 Pulse Source Pulse Oximeter Pulse Oximetry (%) 94 Oxygen Delivery Method Room Air Intake Visit Reasons: Pulmonary Nodule Chemistry Technologist Required: No Accompanied by: Self / Same As Patient Allergies No Known Allergies Allergy (Verified 05/19/25 09:20) HPI Comments Details: The patient is a 79 year old gentleman known asthma in addition to pulmonary nodules. He was initially and Advair, but, then due to insurance reasons he was social her to Breo. The Breo has been affecting beneficial though is very expensive for him. He has not had to use his rescue inhaler. He has not had any exacerbations of the breathing. Overall he is doing well exercising regularly. He does complains of some dyspnea on exertion at times. Mild in severity. Does get better with rest. He also has had CT scans assessing his pulmonary nodules. His last CT scan was done over April 2019 at [facility] demonstrating stable pulmonary nodules when compared to 2017. Based on the stable nodules he does not require any additional serial CAT scans at this time. We can consider CT scans as needed. Otherwise the patient is without any other complaints. 10/04/2020. The patient is here for pulmonary follow-up visit. Overall he is doing well. Back in April he did have an elevated PSA and did have a diagnosis of lung cancer made by biopsy. He did undergo a prostatectomy in [place]. He did not require radiation or chemotherapy or hormonal therapy. He has been recovering well. In the meantime he has known pulmonary nodules. He did have a recent CT scan of the chest that we personally reviewed from [facility]. Demonstrated the pulmonary nodules have been about the same. Although, he does have this scar like nodular density which is irregular in nature and that is located in the right lower lobe. This is suggestive of rounded atelectasis versus and nodular density. In view of his prostate cancer these nodules have to monitor closely. Therefore will continue with the yearly CAT scans at this time. If the patient develops any worsening symptoms or any concerning symptoms then an earlier evaluation will be warranted done. He continues using his respiratory medications. He is wondering about a cough that he is developing. It is usually productive in usually in the mornings worse. Moderate severity. He has been responding well to the Symbicort. We did talk about considering a long-acting muscarinic antagonist. The patient is reluctant to use it at this time. Will go ahead and treated for an upper airway cough syndrome. 03/22/2022 the patient is here for a pulmonary follow-up visit. Overall he is feeling well. He continues uses Symbicort 2 puffs twice a day. He does still get some shortness of breath. He does need a rescue inhaler specially well playing softball or any other activities where he could pretreated prior to the exercise. The patient does complain about the cause of the Symbicort. I will see the complain a more reasonable inhaler for him to use for maintenance therapy. The patient also had a recent CT scan of the chest that was personally by me and also his CT scan prior to that. He appears to have stable pulmonary nodules although he appears to have multiple nodules largest 1 in the left lower lobe which appears to be unchanged from previous and also has other micro nodules bilaterally. The micro nodules were not documented in his previous CT scan. Therefore, will go ahead and repeat his CT scan in a year's time. 05/02/2023 the patient is here for a pulmonary follow-up visit. Overall the patient has been doing well. Continues to exercise regularly. Continues uses respiratory therapy with good effect. I did review his CT scan of chest and does not appear to have any changes in the pulmonary nodules. There appeared to be stable and do not need serial CT scans. His pulmonary function studies are reassuring still with asthma. No evidence of any fixed obstruction. The only issue that he has been having is the cause of the inhalers. We switched him over to Advair HFA is still very expensive. Therefore I did provide him with good Rx card and a prescription for AirDuo which she can use and hopefully this way he can get it for cheaper rahman and not affect his donut hole. I am hopeful that this works for him. He also has a rescue inhaler that he has not required. Otherwise patient follow-up in a year if he has any issues he is to call the office for an earlier appointment. 05/06/2024 the patient is here for a pulmonary follow-up visit. Overall he is doing okay. Does complaint of increasing dyspnea on exertion. Feels like he gets more winded with typical activities he did in the past. He has been on Symbicort. Although has been very expensive. Prior to that he had been on Advair. Will go ahead and switch him to AirDuo with a GoodRx card. I did give him a card and he will take it to the [facility] pharmacy in order to get a reasonable rahman. Hopefully the AirDuo if he takes it twice a day will be more effective for it. During the visit we did go for brief walking oximetry the stairs the patient maintain a pulse ox of 96%. Heart rate did increase to about 105. He was winded about dyspnea score 5/10. It did improve after few minutes. He already had a cardiac evaluation and stress test per the patient and was okay per the patient. Therefore at this point I believe he is doing okay. His last CT scan was last year demonstrating stable pulmonary nodules for more than 2 years. He also had PFTs back about a year ago and does also reasonable without any evidence of any definitive obstructive nor restrictive ventilatory defects. He is going to start the AirDuo and continue to exercise. He is going to be watching closely for poor air quality. If his symptoms worsen then he can always call and we can repeat an x-ray and PFTs to assess any further progression of his airway disease. 12/02/2024 the patient is here for pulmonary follow-up visit. He has been sick now for couple weeks. Congestion cough and chest tightness. Was evaluated doxycycline and also prednisone started on 60 mg she has been using his rescue inhaler regularly in addition to maintenance inhaler. After completing the oxygen the prednisone has not seen any significant improvement. On exam he does not have any significant wheezing but he still has productive cough congested. Will go ahead and start him on Augmentin. We can also consider levofloxacin. The patient if no better after starting the Augmentin for chest x-ray. He will continue with his current respiratory therapy at this time. He has been taking Delsym. Will switch that over to Mucinex DM or the generic. Patient will return the springtime, but he can always push the appointment to the fall if he is doing okay. 03/10/2025 the patient is here for a pulmonary follow-up visit. She he started developing worsening cough chest congestion. Positive sick contacts. His AirDuo is back order so he does not have access to it. She has like he really needs to have his maintenance inhaler. I did give him a prescription for Breztri to see if it is, with a coupon and then after that he can try Wixela. I would send out to the pharmacy. Although he is having some wheezing on exam right now so for will treat him for COPD exacerbation. He is also concerned about his pulmonary nodules. He had a CAT scan back in November 2024. Personally reviewed. Urinary nodules appear to be stable. He does have some minimal interstitial changes. Does have some atelectasis. Therefore will continue to monitor with serial CAT scans his next CAT scans scheduled for November 2025. Therefore he will restart his maintenance therapy continue with his rescue will go ahead and treat him for this exacerbation again. Based on his chronic bronchitis he benefits from a longer duration antibiotics so therefore will start him on macrolide suppressant therapy Sunday. If he takes it more than a month he should get an EKG. Order has been placed. 05/19/2025 the patient is here for pulmonary follow-up visit. Overall he is doing a lot better. He is tolerating the Wixela well. He is no longer taking antibiotics. He also completed the prednisone. From a respiratory status he is actually doing well and he feels like he exercising go back to softball. 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 From a CT scan standpoint the patient did have a CAT scan back in November 2024 demonstrating stable pulmonary nodules. Will plan to have a repeat CAT scan in November 2025. Will follow-up then. If he has any issues prior to this he will call for an earlier assessment. [facility] Medical History (Updated 12/05/24 @ 14:21 by Brenton Barrios MD) Pneumonia Asthma-COPD overlap syndrome Pulmonary nodules Cough Dyspnea Social History Patient Tobacco Use Status: Never used Tobacco Review of Systems Const Denies night sweats ENT Denies change in voice, Denies lip swelling, Denies mouth pain, Reports nasal congestion, Reports nasal discharge and Denies tongue swelling Card Denies chest pain and Reports dyspnea on exertion Resp Reports cough, Reports dyspnea on exertion and Reports wheezing GI Denies abdominal pain Musc Denies no additional complaints Neuro Denies Neuro-related abnormal movements Psych Denies no additional complaints Porfirio/Lymph Denies easy bleeding and Denies lymphadenopathy Aller/Immun Denies lip swelling, Denies tongue swelling and Reports wheezing Physical Exam Vital Signs: Last Vital Signs Pulse 72 05/19/25 09:17 BP 118/64 05/19/25 09:17 Pulse Ox 94 05/19/25 09:17 Oxygen Delivery Method Room Air 05/19/25 09:17 BMI result Body Mass Index 26.0 Const General: alert Neck Neck: Yes normal visual inspection, Yes full ROM and Yes no lymphadenopathy Chest Chest palpation & inspection: normal inspection of the chest Resp Auscultation: diminished lung sounds Cardio Rate: regular rate Rhythm: regular rhythm Heart sounds: S1 normal heart sound present and S2 normal heart sound present GI Palpation (GI): Soft to palpation and nontender Auscultation: normal bowel sounds Skin General skin exam: rashes and/or lesions noted Assessment & Plan Assessment & Plan (1) Asthma-COPD overlap syndrome: Code(s): J44.9 - Chronic obstructive pulmonary disease, unspecified Category: Medical (2) Pulmonary nodules: Code(s): R91.8 - Other nonspecific abnormal finding of lung field Category: Medical (3) Cough: Code(s): R05 - Cough Category: Medical Qualifiers: Cough type: chronic Qualified Code(s): R05.3 - Chronic cough (4) Bronchitis: Code(s): J40 - Bronchitis, not specified as acute or chronic Category: Medical Plan Wixela Continue allergy therapy Singulair and as needed Zyrtec Continue fluticasone nasal spray CT chest 12/2025 Follow-up in 01/2026 Orders: Orders CT chest wo IV con 12/21/25 R91.8 - Other nonspecific abnormal finding of lung field Coding Level of Care Code Est Pt Level 4 (25887) Diagnoses Asthma-COPD overlap syndrome J44.9 Pulmonary nodules R91.8 Chronic cough R05.3 Cough type: chronic Bronchitis J40 Time Spent (min) 16
[2025-05-19 09:17] VITALS: BP 118/64; PULSE 72; O2SAT 94; BMI 26.0
--- OUTSIDE RECORDS SUMMARY | 2025-05-19 09:48 | XMS_ITS | Clinical Summary ---
Author Organization [facility] Address [address] [place] [address] Care Team Providers Care Concrete Boom Operator Name Role Phone Capo Posada MD Primary Care Provider [phone] Social History Tobacco Use Types Packs/Day Years [...] - 1-dose 75+ series) 2021 Influenza Vaccine (Season Ended) 2025 Hepatitis B Vaccines Aged Out No long er eligible based on patient's age to complete this topic RSV Ped < 20 months Aged Out No longe r eligible based on patient's age to complete this topic Care Teams Concrete Boom Operator Relationship Specialty Start Date End Date Capo Posada MD [address] [place] [id number] PCP - General Internal Medicine 08/07/23
--- OUTSIDE RECORDS SUMMARY | 2025-05-19 09:48 | XMS_ITS | Data Portability ---
Author Organization [place] - [facility], Allergy Address [address] [address] Care Team Providers Care Forestry Biology Specialist Name Role Phone RENAN FLOREZ Primary Care Provider Assessment Encounter Date Assessment Date Assessment LastModified by Organization Details LastModified Time 01/20/2025 01/20/2025 Increased medium & loud input gain by 4 clicks. Patient reported satisfaction with sound quality. The hearing devices are in working order and generally free of debris. The devices were programmed wirelessly using the automation mechanic software in [facility]. The Audioscan Verifit II hearing aid analyzer was used previously for real-ear verification and not recommended to be repeated unless significant changes are made to the devices. Follow up to discuss progress with new settings. [email or web address] Not available 01/20/2025 14:34:54 01/29/2025 01/29/2025 79-year-old male presents for cerumen removal. Cerumen impaction removed bilaterally. Bilateral TMs are intact. Follow up in 3-4 months for routine debridement. [email or web address] Not available 01/29/2025 08:58:55 02/16/2025 02/16/2025 Hearing [...] bore out the vent holes some more. [email or web address] Not available 02/16/2025 16:04:16 03/05/2025 03/05/2025 Using [...] hearing devices. Per patient's request, [employer] will be contacted regarding the trial period expiration and whether an exchange or return would be possible. Counseled patient that a different hearing aid fitting would be expected to result in the same complaints and my recommendation is to continue working with his current hearing aids, adjusting to the binaural amplification, and appreciating the limitations that result from hearing loss. [email or web address] Not available 03/05/2025 13:18:01 05/14/2025 05/14/2025 79-year-old male presents for cerumen removal. Cerumen impaction removed bilaterally. Bilateral TMs are intact. Follow up in 3-4 months for routine debridement. [email or web address] Not available 05/14/2025 09:53:25 Plan of Treatment Reminders Order Date Submit Date Provider Last Modified By Organization Details Last Modified Time Details Appointments Establish ed 15 2024 10:30A M DARBY CAMACHO PA-C Not available Not available Not available Lab None recorded. Referral None recorded. Procedures None recorded. Surgeries None recorded. Imaging None recorded. Medication Orders None recorded. Patient TargetsNo targets recorded. Patient InstructionsNo instructions recorded. Reason for Referral None Reported. Problems Name Problem SNOMED Code Status Onset Date Resolution Date Notes Provider Name and Address Organization Details Recorded Time Cough 96181219 Active 2014 Cough; Note: Date Diagnosed : 02/01/2015 3:26 PM (786.2) Not Available [facility] 03:12:19 Diffuse otitis externa 51331349 Active 2014 Diffuse otitis externa, left ear; Note: Date Diagnosed : 08/24/2015 11:23 AM (H60.312) Diffuse otitis externa, left ear; Note: Changed from 380.10 to H60.312 ( 10:54 AM) , Date Diagnosed : 07/23/2015 1:17 PM (380.10) ; Start Date : 5 Not Available [facility] 4 03:12:20 Allergic rhinitis 36823973 Active 2014 Allergic rhinitis: Due to other allergen; Note: Date Diagnosed : 03/03/2015 10:05 AM (477.8) Allergi c rhinitis, unspecifi ed; Note: Changed from 477.9 to J30.0 ( 11:21 AM) , Changed from J30.0 to J30.9 ( 11:21 AM) , Date Diagnosed : 02/01/2015 3:26 PM (477.9) ; Start Date : 5 Not Available [facility] 4 03:12:20 Mycosis 4372293 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; Note: Date Diagnosed : 12/19/2016 9:35 AM (B48.8) Not Available [facility] 4 03:12:18 Impacted cerumen in right ear 19815677726 66915 Active 2015 Impacted cerumen, right ear; Note: Date Diagnosed : 05/23/2016 9:17 AM (H61.21) Not Available [facility] 4 03:12:20 Sensorine ural hearing loss of bilateral ears 659171600 Active 2014 Sensorine ural HL, bilateral ; [...] ; Start Date : 5 Not Available [facility] 4 03:12:19 Polyp of nasal cavity and/or nasal sinus 754587400 Active 2014 Nasal polyp, unspecifi ed; Note: Changed from 471.9 to J33.9 ( 5 11:21 AM) , Date Diagnosed : 02/01/2015 3:26 PM (471.9) Not Available [facility] 4 03:12:18 Impacted cerumen 50641025 Active 2015 Impacted cerumen; Note: Date Diagnosed : 05/23/2016 9:14 AM (380.4) Not Available [facility] 4 03:12:19 Impacted cerumen of bilateral ears 90664253326 31805 Active 2015 Impacted cerumen, bilateral ; Note: Date Diagnosed : 05/08/2016 9:15 AM (H61.23) Not Available [facility] 4 03:12:19 Problem Notes None recorded. Procedures Surgical History Date Name Laterality Status Provider Name and Address Organization Details Recorded Time 5 Cerumen removal without microscope bilat completed DARBY CAMACHO PA-C 100 [facility],[address], [address], [place] - [facility] 05/14/2025 09:53:21 5 Cerumen removal without microscope bilat completed DARBY CAMACHO PA-C 100 [facility],[address], [address], [place] - [facility] 01/29/2025 08:58:51 4 Cerumen removal without microscope bilat completed DARBY CAMACHO PA-C 100 [facility],[address], [address], [place] - [facility] 10/02/2024 09:13:30 4 Cerumen removal without microscope bilat completed KAEL LAN PA-C 100 [facility],[address], [address], [place] - [facility] 05/05/2024 13:15:12 Imaging Results None recorded. Procedure Notes None recorded. Medical Equipment None Reported. Medications Name Sig Start Date Stop Date Status Note LastModified by Organization Details LastModified Time amoxicill in 500 mg capsule TAKE 4 CAPSULES AN HOUR PRIOR TO DENTAL APPOINTM ENT AND THEN 1 CAPSULE 3 TIMES A DAY FOR 1 WEEK. 05/14 completed Not Available Not Available Not Available nystatin 100,000 unit/mL oral suspensio n [...] DAYS THEN OFF ORALLY ONCE A DAY 05/14 completed Not Available Not Available Not Available doxycycli ne hyclate 100 mg capsule TAKE 1 CAPSULE BY MOUTH TWICE A DAY FOR 7 DAYS 05/14 completed Not Available Not Available Not Available atorvasta tin 20 mg tablet TAKE 1 TABLET BY MOUTH EVERY DAY active Not Available Not Available No t Available lidocaine 4 % topical patch APPLY 1 PATCH TOPICALL Y EVERYDAY *12 HOURS ON AND 12 HOURS OFF* active Not Available Not Available No t Available atorvasta tin 10 mg tablet 2016 active Medicati on ID: [id number] D uration Value: 30 Brand Name: olivia beasley Method: E-Prescr ibed Sub s Allowed: subs OK Speci al Instruct ion: TAKE 1 TABLET BY ORAL ROUTE EVERY DAY Medi cationGe nericNam e: atorvast atin Not Available Not Available Not Available azithromy dunia 250 mg tablet TAKE 1 TABLET ORALLY 3 TIMES A WEEK FOR 28 DAYS TAKE 1 TABLET ON SUNDAY/ /05/14 completed Not Available Not Available Not Available tizanidin e 4 mg tablet TAKE 1 TABLET BY MOUTH EVERY 8 HOURS NEEDED active Not Available Not Available No t Available prednison e 20 mg tablet TAKE 2 TABLETS FOR 5 DAYS THEN TAKE 1 TABLET FOR 5 DAYS 05/14 completed Not Available Not Available Not Available fluoroura cil 2 % topical solution APPLY ONE DAY PER WEEK (IE. SUNDAY) AM AND PM TO [facility] ED AREAS ON SCALP FOR 3 MONTHS. [...] MOUTH TWICE A DAY FOR 7 DAYS 05/14 completed Not Available Not Available Not Available dexametha sone 4 mg tablet TAKE 1TAB BY MOUTH 3 TIMES A DAY X2 DAYS, 1 TAB TWICE A DAY X2 DAYS, 1 TAB DAILY X2 DAYS DIRECTED 05/14 completed Not Available Not Available Not Available polymyxin B sulfate 10,000 unit-trim ethoprim 1 mg/mL eye drops INSTILL 1 DROP INTO RIGHT EYE EVERY 3 HOURS FOR 7 DAYS WHILE AWAKE DO NOT EXCEED 6 DOSES IN 24 HOURS active Not Available Not Available No t Available clotrimaz ole 1 % topical solution 2016 active Medicati on ID: [id number] Gorge ovalle d By Name: BLANE Duarte nd Name: nicolás beasley Method: E-Prescr ibed Sub s Allowed: subs OK Speci al Instruct ion: 4 drops to affected ear 2 times a day X 30 days Med icationG enericNa me: clotrima zole Not Available Not Available Not Available gabapenti n 300 mg capsule 1 CAPSULE ORALLY 3 TIMES DAILY 30 DAY(S) active Not Available Not Available No t Available omeprazol e 20 mg capsule,d elayed release TAKE 1 CAPSULE BY MOUTH 1/2 TO 1 HOUR BEFORE MORNING MEAL ONCE A DAY active Not Available Not Available No t Available diclofena c sodium 75 mg tablet,de layed release TAKE 1 TABLET BY MOUTH TWICE A DAY active Not Available Not Available No t Available monteluka st 10 mg tablet TAKE 1 TABLET BY MOUTH EVERY DAY active Not Available Not Available No t Available ammonium lactate 12 % topical cream 2017 active Medicati on ID: [id number] D uration Value: 20 Brand Name: ammonium lactate Send Method: E-Prescr ibed Sub s Allowed: subs OK Medic ationGen ericName : ammonium lactate Not Available Not Available Not Available Iophen C-NR 10 mg-100 mg/5 mL oral liquid 02/26 completed Medicati on ID: [id number] Du ration Value: 12 Reason: () Brand Name: Iophen C-NR Sen d Method: E-Prescr ibed Sub s Allowed: subs OK Speci al Instruct ion: TAKE 1 TEASPOON (5 ML) BY MOUTH AT BEDTIME NEEDED FOR COUGH Me dication GenericN lise: Iophen C-NR Not Available Not Available Not Available gabapenti n 100 mg capsule TAKE 1-3 CAPSULES BY MOUTH EVERY 8 HOURS NEEDED active Not Available Not Available No t Available metoprolo l succinate ER 25 mg tablet,ex tended release 24 hr 2016 active Medicati on ID: [id number] D uration Value: 90 Brand Name: metoprol ol succinat e Send Method: E-Prescr ibed Sub s Allowed: subs OK Speci al Instruct ion: TAKE HALF A TABLET BY ORAL ROUTE EVERY DAY Medi cationGe nericNam e: metoprol ol succinat e Not Available Not Available Not Available Aspir-81 mg tablet,de layed release 02/20 completed Medicati on ID: [id number] Re ason: () Brand Name: Aspir-81 Send [...] 4 mg tablets in a dose pack 05/14 completed Not Available Not Available Not Available albuterol sulfate HFA 90 mcg/actua tion aerosol inhaler TAKE 2 PUFFS INHALATI ON EVERY 4-6 HOURS NEEDED active Not Available Not Available No t Available fluticaso ne propionat e 50 mcg/actua tion nasal spray,heather pension 2014 active Medicati on ID: [id number] Du ration Value: 30 Brand Name: fluticas one Send Method: E-Prescr ibed Sub s Allowed: subs OK Speci al Instruct ion: USE 1 SPRAY TWICE A DAY EACH NOSTRIL Medicati onGeneri cName: fluticas one Not Available Not Available Not Available clotrimaz ole 1 % topical cream 12/19 completed Medicati on ID: [id number] Du ration Value: 14 Brand Name: nicolás arzate Sen d Method: E-Prescr ibed Sub s Allowed: subs OK Medic ationGen ericName : nicolás arzate Not Available Not Available Not Available doxycycli ne hyclate 100 mg tablet TAKE 1 TABLET BY MOUTH TWICE A DAY FOR 10 DAYS 05/14 completed Not Available Not Available Not Available finasteri de 5 mg tablet TAKE 1 TABLET BY MOUTH EVERY DAY active Not Available Not Available No t Available amoxicill in 875 mg-potass ium clavulana te 125 mg tablet TAKE 1 TABLET BY MOUTH TWICE A DAY FOR 10 DAYS 05/14 completed Not Available Not Available Not Available Laxative (bisacody l) 5 mg tablet,de layed release 4 TABLETS ORALLY DIRECTED X1 DAY 05/14 completed Not Available Not Available Not Available azithromy dunia 500 mg tablet TAKE 1 TABLET BY MOUTH EVERY DAY FOR 5 DAYS active Not Available Not Available No t Available Crestor 20 mg tablet 07/23 completed Medicati on ID: [id number] Du ration Value: 30 Reason: () Brand Name: Crestor Send Method: E-Prescr ibed Sub s Allowed: subs GAYLE Holbrooki al Instruct ion: TAKE 1 TABLET BY MOUTH EVERY DAY AT BEDTIME Medicati onGeneri cName: Crestor Not Available Not Available Not Available Gas Relief Extra Strength 125 mg chewable tablet 3 CHEWABLE TABLETS ORALLY DIRECTED 1 DAY active Not Available Not Available No t Available Flovent HFA 110 mcg/actua tion aerosol inhaler 02/26 completed Medicati on ID: [id number] Du ration Value: 30 Reason: () Brand [...] gram-6.74 gram-5.86 gram oral solution TAKE DIRECTED 05/14 completed Not Available Not Available Not Available Breo Ellipta 100 mcg-25 mcg/dose powder for inhalatio n 2017 active Medicati on ID: [id number] D uration Value: 30 Brand Name: Karis Feng Send Method: E-Prescr ibed Sub s Allowed: subs OK Medic ationGen ericName : Karis Feng Not Available Not [...] Not Available Not Available No t Available Wixela Inhub 250 mcg-50 mcg/dose powder for inhalatio n INHALE 1 PUFF EVERY 12 HOURS active Not Available Not Available No t Available Breztri Aerospher e 160 mcg-9mcg- 4.8mcg/ac tuation HFA aerosol inhaler INHALE 2 PUFFS TWICE A DAY active Not Available Not Available No t Available Vitals Date Recorded Body height Body mass index (BMI) Body weight Provider Name and Address Organization Details Last Updated DateTime 01/29/2025 180.34 cm 24.7 kg/m2 50726.85 g Lyudmila Lanier [place] - [facility] 01/29/2025 09:02:24 Date Recorded Body height Body mass index (BMI) Body weight Provider Name and Address Organization Details Last Updated DateTime 05/14/2025 180.34 cm 25.1 kg/m2 61855.63 g Kell Norman [facility] 05/14/2025 09:49:45 Social History None recorded. Functional Status None recorded. Mental Status None recorded. Family History Nothing Reported. Medical History Condition Response Tonsil Infections N Thyroid Problems N Stroke N Past Encounters Encounter ID Performer Location Encounter Start Date Encounter Closed Date Diagnosis/Indication Diagnosis SNOMED-CT Code Diagnosis ICD10 Code Diagnosis Note [id number] KAEL LAN PA-C [facility] [address] [address] 05/05/2024 13:00:46 05/05/2024 13:20:35 Impacted cerumen of bilateral ears 0416100803 416065 H61.23 Recurrent Cerumen Impactions : Ears were meticulous ly cleaned bilaterall y today with a curette and suction. The patient tolerated this well and will follow up for repeat debridemen t per routine. Sensorineu ral hearing loss of bilateral ears 014990571 H90.3 [id number] Krystal SULLIVAN [facility] [place] [address] [place] [address] 09/29/2024 13:54:59 10/03/2024 07:22:43 Sensorineural hearing loss of bilateral ears 879862474 H90.3 [id number] DARBY CAMACHO PA-C [facility] [address] [address] 10/02/2024 08:54:12 10/02/2024 09:21:31 Impacted cerumen of bilateral ears 8665161425 277492 H61.23 [id number] Krystal SULLIVAN [facility] [place] [address] [place] [address] 11/13/2024 13:53:46 11/14/2024 11:54:27 Sensorineural hearing loss of bilateral ears 292759377 H90.3 [id number] Krystal SULLIVAN [facility] [address] [address] 01/06/2025 14:13:51 01/07/2025 07:37:39 Sensorineural hearing loss of bilateral ears 946566210 H90.3 [id number] Krystal [facility]ULLIVAN [facility] [place] [address] [place] [address] [place] [address] 01/20/2025 12:58:41 01/21/2025 07:58:02 Sensorineural hearing loss of bilateral ears 732583815 H90.3 [id number] DARBY CAMACHO PA-C [facility] [address] [place] [address] 01/29/2025 08:51:11 01/29/2025 09:09:57 Impacted cerumen of bilateral ears 7929182950 229304 H61.23 [id number] AALIYAH CALDERÓN [facility]D [facility] [place] [address] [place] [address] 02/16/2025 14:55:13 02/21/2025 12:16:34 Sensorineural hearing loss of bilateral ears 330957158 H90.3 [id number] AALIYAH CALDERÓN, [facility] [place] 100 [facility],[address] [place] [address] 03/05/2025 10:11:26 03/09/2025 11:38:25 Sensorineural hearing loss of bilateral ears 922504025 H90.3 [id number] DARBY CAMACHO PA-C [facility] [address] [place] [address] 05/14/2025 09:43:00 05/14/2025 09:59:33 Impacted cerumen of bilateral ears 7084474678 488345 H61.23 Health Concerns Section Related Observation LastModified by Organization Detai ls LastModified Time None Recorded Concern Status LastModified by Organization Details LastModified Time None Recorded Advance Directives Directive None Recorded Payers Insurance Date Sequence Insurance Name Policy Number Policy Montes Covered Member ID Montes Member ID Guarantor Name 05/14/2025 1 [place] [employer] Manuel So [id number] Manuel So 05/11/2025 2 [place] [id number] Manuel So [id number] Manuel So Notes Date Note Type Note Provider Name and Address Organization Details Recorded Time 01/20/2025 text/html Patient returned for a follow up for the fitting of new technology as a first time user of amplification. Patient reported limited satisfaction with use, not hearing well enough for the television, at a restaurant, or hearing people that are speaking behind him. They reported that their devices are in working order without defects. The sound quality of the devices are satisfactory but not loud enough. Krystal SULLIVAN 100 [facility],[place] [address], [place], [address], [place] - [facility] 01/20/2025 14:35:13 01/29/2025 text/html 79-year-old male presents for cerumen removal. No concerns today. LEW TAPIA MD 100 [facility],[place] [address], [place], [address], [facility] - [facility] 01/29/2025 16:28:01 02/16/2025 text/html Hearing Technolo gy HistoryReported bypatient.Sound quality and programming settingsthey are satisfied with current settings and technology Daily useconsistent use of amplification Patient returned for a follow up for the fitting of new technology as a longstanding user of amplification. Patient previously reported dissatisfaction with settings (not loud enough) and he returned to discuss progress with our last adjustment. Krystal SULLIVAN 100 [facility] [address], [place], [address], [facility] - [facility] 02/16/2025 16:04:27 03/05/2025 text/html Patient returned for a follow up for the fitting of new technology as a longstanding user of the same style devices. Patient reported satisfaction with fit and comfort. [...] are able to be returned or exchanged. Krystal SULLIVAN 100 [facility],[place] [address], [place], [address], [facility] - [facility] 03/05/2025 13:18:13 05/14/2025 text/html 79-year-old male presents for cerumen removal. No concerns today. LEW TAPIA MD [address] [place] [address], [place], [address], [place] [facility] 05/14/2025 17:30:43
--- OUTSIDE RECORDS SUMMARY | 2025-05-19 09:48 | XMS_ITS | Clinical Summary ---
Author Organization LL [address] [place] [address] [place] [address] Phone Care Team Providers Care Peg Driver Name Role Phone Capo Posada MD Primary Care Provider [phone] Allergies Active Allergy Reactions Criticality Noted Date Comments House Dust 12/09/2020 Mold 12/09/2020 Medications budesonide-formo teroL (SYMBICORT) 160-4.5 mcg/actuation inhaler Route: Inhale 2 [...] Each by Does not apply route daily. 4 Active amLODIPine (NORVASC) 2.5 mg tablet Take 1 tablet (2.5 mg total) by mouth 1 (one) time each day. Active montelukast (SINGULAIR) 10 mg tablet Take 1 Tab by mouth at bedtime. 9 Active finasteride (PROSCAR) 5 mg tablet Take 1 tablet (5 mg total) by mouth 1 (one) time each day. Active atorvastatin (LIPITOR) 20 mg tabletIndication s:Essential (primary) hypertension,Pur e hypercholesterol emia, unspecified TAKE 1 TABLET BY MOUTH EVERY DAY 90 tablet 1 Active Active Problems Problem Noted Date Diagnosed Date [...] care physician arranged for echocardiogram through the [facility] system and I think this is [...] call 911. Asthma 06/04/2017 Chronic obstructive bronchitis ([facility] V24, CMS /[facility] V28) 06/04/2017 Lung nodule 06/04/2017 Benign prostatic hyperplasia 03/28/2017 Malignant neoplasm of urinar y bladder ([facility] V24, [facility] V28) 03/28/2017 Tubular adenoma 03/28/2017 Encounters Date Type Department Care Team Description 02/23/2025 1:00 PM EDT Office Visit [facility] [address] [place] [address] Selene Segura MD Essential hypertension (Primary Dx); Hyperlipidemia LDL goal <70 from Last 3 Months Surgical History Surgery Date Site/Laterality Comments APPENDECTOMY PROCEDURE: HISTORICAL APPENDECTOMY TONSILLECTOMY PROCEDURE: HISTORICAL TONSILLECTOMY KNEE SURGERY PROCEDURE: HISTORICAL KNEE SURGERY OTHER SURGICAL HISTORY PROCEDURE: [place] BIOPSY PROSTATE INCISIONAL ANY APPROACH Medical History Medical History Date Comments Asthma 06/04/2017 DX:Asthma Benign prostatic hyperplasia 03/28/2017 DX: Benign prostatic hyperplasia Chronic obstructive bronchit is (CMS/HCC V24, [facility] V28) 06/04/2017 DX:Chronic obstructive bron chitis (HCC) [...] GEMUSE QTc 419 ms GEMUSE P Wave Hartley 69 degrees GEMUSE R Hartley -30 degrees GEMUSE T Hartley 18 degrees GEMUSE ECG Interpretation Normal sinus [...] Documents on File Type Date Recorded Patient Human Resources Department Supervisor Expl anation Health Care Decision (hx) 09/27/2020 AD MALLORY DIRECTIVE Health Care Decision (hx) 09/27/2020 AD MALLORY DIRECTIVE Health Care Decision (hx) 09/27/2020 AD MALLORY DIRECTIVE Health Care Decision (hx) 09/27/2020 AD MALLORY DIRECTIVE Care Teams Peg Driver Relationship Specialty Start Date End Date Capo Posada MD [address] [place] [id number] PCP - General Internal Medicine 01/27/13
--- OUTSIDE RECORDS SUMMARY | 2025-05-19 09:49 | XMS_ITS ---
Author Name [facility] Organization Unknown Encounters Encounter Type Encounter Reason Primary Diagnosis Location Date Ambulatory [facility] 08/15/20 Care Team Organization Name Specialty Phone Email Start Date End Da te [facility] 202202/11/2025 [facility] Primary Care 08/15/2008/15/2023
== END 2025-05-19 09:39 | disposition home or self-care (01) ==
LOC: HO.HPS 09:16
PROVIDERS: PCP Internal Medicine; Visit Provider Hospitalist
DX: J44.9 Chronic obstructive pulmonary disease, unspecified (principal); R91.8 Other nonspecific abnormal finding of lung field; R05.3 Chronic cough; J40 Bronchitis, not specified as acute or chronic
CPT/HCPCS: 99213

== ENCOUNTER → 2025-05-19 09:15 | Outpatient (BNVA) | payer MEDICARE, SELFPAY | PROVIDERS: PCP Internal Medicine; Visit Provider Hospitalist | DX: R91.8 Other nonspecific abnormal finding of lung field (principal); J44.9 Chronic obstructive pulmonary disease, unspecified; R05.3 Chronic cough; J40 Bronchitis, not specified as acute or chronic; Z79.899 Other long term (current) drug therapy | CPT/HCPCS: 99212 ==